=== PATIENT | female | born 1990 | race Caucasian/White ===

== ENCOUNTER 2017-01-14 04:20 | Inpatient (IN) | payer OTHER ==
[2017-01-14] MEDS: SODIUM CHLORIDE 1,000 ML IV SCH ×2 (04:50→08:03)
[2017-01-14 06:09] LABS: BASOPHIL 0.2 % (0-2.0); EOSINOPHIL 0.2 % (0-4.5); MCH 21.1 pg (25.7-33.7); MCHC 30.5 g/dl (32.0-36.0); MEAN CELL VOLUME 69.5 fl (80-96); MEAN PLT VOLUME 8.6 fl (7.5-11.1); NEUTROPHILS 78.5 % (42.8-82.8); RDW 17.8 % (11.6-15.6); WHITE BLOOD COUNT 17.8 K/mm3 (4.0-10.0)
[2017-01-14] MEDS ORDERED: SODIUM CHLORIDE 100 ML IVPB SCH (06:30)
[2017-01-14 06:45] LABS: INR 0.95 (0.82-1.09); PROTHROMBIN TIME (PATIENT) 10.4 SEC (9.98-11.88)
[2017-01-14 06:47] LABS: ACTIVATED PTT 28.9 SECONDS (26.9-34.4)
[2017-01-14 06:51] LABS: ANION GAP 9 (8-16); CALCIUM 8.5 mg/dL (8.5-10.1); CO2 21 mmol/L (21-32); CREATININE 0.5 mg/dL (0.55-1.02); GLUCOSE,RANDOM 98 mg/dL (74-106)
[2017-01-14 07:26] LABS: HIV 1 & 2 AB NEGATIVE; HIV 1 AGp24 NEGATIVE
[2017-01-14] MEDS ORDERED: BUTORPHANOL TARTRATE 1 MG/ML VIAL IVPB ONE (08:04)
[2017-01-14] MEDS ORDERED: PROMETHAZINE HCL 25 MG/1 ML VIAL IVPUSH ONE (08:04)
[2017-01-14 08:15] LABS: PLATELET COMMENT2 NO CLOTTING DETECTED; PLATELET ESTIMATE ADEQUATE (NORMAL)
[2017-01-14 08:16] LABS: ANISOCYTOSIS 2+; HYPOCHROMIA 2+; MICROCYTOSIS 1+
--- NOTE | 2017-01-14 08:27 | HP ---
Past Medical History - Primary Care Physician PCP:: Kristel Kaur - Admission Chief Complaint: 26 yrs onset LP since 12.30 am 38.4/7 weeks by dates & sono History of Present Illness: pnc at [facility] .Wt gain 24 lbs . pt has numerous visits in L&D due to different reasons l1) palpitations, anxiety , (2)upper abd(epigastric )pain Cholelithiasis diagnosed, on 12/24, cholecystiitis suspected, treated with Iv Ancef & , demerol & vistril pt returned with same complains on 01/05/17 treated with IV ampicillin followed by po amoxcillin for 7 days (3)GDM diet controlled & Po Glyburide 2.5 mg bid (4) Asthma rx inhaler . (5) Anemia work UP : O Pos, , Rpr nr, Hbsag neg, Rubella immune, Quantiferon neg, Gbs neg, HIV neg, ., 1 hr GTT 180, 3 Hr Gtt 97, 190, 123, 106 NT screen not done. , Quad screen neg 01/04/17 bpp8/8, varinder 14.79. 01/12/17 sono report not on chart History Source: Patient, Medical Record, Caregiver - Past Medical History SAMPLE STEAMER: No: Migraine, Seizure Cardiovascular: Yes: Other (palpitations). No: HTN Pulmonary: Yes: Asthma (rx inhaler prn) Hepatobiliary: Yes: Cholelithiasis, Cholecystitis (rx iv ancef , iv ampicillin followed by po amoxcilin) Renal/: Yes: UTI ...: 1 ...Para: 0 ...Term: 0 ...: 0 ...Spon : 0 ...Induced : 0 ...Multiple Gestation: 0 ...LMP: 04/19/16 ... Weeks Gestation by Dates: 38.4 ...EDC by Dates: 01/24/17 ...EDC by Sono: 01/24/17 Heme/Onc: Yes: Anemia (zoila compliant in iron & pnv intake) Infectious Disease: No: AIDS, HIV, STD's Psych: Yes: Anxiety Endocrine: Yes: Other (GDM rx po glyburide 2.5 mg bid & diet controlled) - Past Surgical History Past Surgical History: Yes: None Hx Myomectomy: No Hx Transabdominal Cerclage: No - Smoking History Smoking history: Never smoked Have you smoked in the past 12 months: No - Alcohol/Substance Use Hx Alcohol Use: No History of Substance Use: reports: None Home Medications - Allergies Allergies/Adverse Reactions: Allergies Allergy/AdvReac Type Severity Reaction Status Date / Time No Known Allergies Allergy Verified 01/14/17 06:51 - Home Medications Home Medications: Ambulatory Orders Glyburide/Metformin HCl [Glyburide-Metformin 2.5-500 mg] 2.5 mg PO BID 12/30/16 Albuterol Sulfate Inhaler - [Ventolin Hfa Inhaler -] 1 puff IH Q4H PRN 01/13/17 Vitamins (Sjr) - 1 tab PO DAILY 01/13/17 Physical Exam - Maternity Vital Signs: Vital Signs Temperature 97.7 F 01/14/17 04:55 Pulse Rate 78 01/14/17 04:55 Respiratory Rate 20 01/14/17 04:55 Blood Pressure 128/79 01/14/17 04:55 O2 Sat by Pulse Oximetry (%) Constitutional: Yes: Well Nourished, Severe Distress Eyes: Yes: WNL HENT: Yes: WNL, Normocephalic Neck: Yes: WNL Cardiovascular: Yes: WNL, Regular Rate and Rhythm Lungs: Clear to auscultation Breast(s): Yes: WNL - Abdominal Exam/OB Fundal Height: 38 Number of Fetuses: Single Presentation: Vertex Contractions: Yes Regularity: Irregular (4-7 min) Monitor Mode: External Heart Rate (range): 145 Heart Rate Location: [facility] Category: I Accelerations: Uniform - Vaginal Exam/OB Vaginal Bleediing: Bloody Show Speculum Exam: Yes Dilatation (cm): 3-4 Effacement (%): 90 Amniotic Membrane Status: Intact Nitrazine Test: Negative Presentation: Vertex/Position Station: -3 - Physical Exam Musculoskeletal: Yes: WNL Extremities: Yes: WNL. No: Calf Tenderness Edema: Yes Edema: LLE: 1+, RLE: 1+ Deep Tendon Reflex Grade: Normal +2 ...Motor Strength: WNL Psychiatric: Yes: WNL, Alert, Oriented - Labs Lab Results: CBC, BMP 01/14/17 05:45 01/14/17 05:45 Laboratory Tests 01/14/17 01/14/17 05:45 05:45 INR 0.95 PTT (Actin FS) 28.9 HIV 1&2 Antibody Screen Negative HIV P24 Antigen Negative Laboratory Tests 01/14/17 08:53 WBC 17.0 H Hgb 8.1 L Hct 26.2 L MCV 69.5 L Plt Count No Result Required. Platelet Comment Mod plt clumping Problem List - Problems (1) 38 to 41 weeks gestation of Code(s): [id number] - (2) Labor established Code(s): [id number] - (3) Anemia Code(s): D64.9 - ANEMIA, UNSPECIFIED Qualifiers: Anemia type: iron deficiency (4) Cholelithiasis Code(s): K80.20 - CALCULUS OF GALLBLADDER W/O CHOLECYSTITIS W/O OBSTRUCTION (5) Cholelithiasis affecting in third trimester, antepartum Code(s): O26.613 - LIVER AND BILIARY TRACT DISORD IN , THIRD TRIMESTER K80.20 - CALCULUS OF GALLBLADDER W/O CHOLECYSTITIS W/O OBSTRUCTION (6) Gestational diabetes mellitus (GDM) controlled on oral hypoglycemic drug Code(s): O24.415 - GESTATNL DIABETES IN PREG, CTRL BY ORAL HYPOGLYCEMIC DRUGS (7) Gestational diabetes mellitus (GDM) in second trimester controlled on oral hypoglycemic drug Code(s): O24.415 - GESTATNL DIABETES IN PREG, CTRL BY ORAL HYPOGLYCEMIC DRUGS (8) Gestational diabetes mellitus (GDM) in third trimester controlled on oral hypoglycemic drug Code(s): O24.415 - GESTATNL DIABETES IN PREG, CTRL BY ORAL HYPOGLYCEMIC DRUGS Assessment/Plan 26 yrs , 38.4 weeks in early labor . , gbs neg , severe anemia GDM on diet , glyburide control Plan stadol + phenrgan for labor analgesia pitocin augmentation trial of labor
[2017-01-14] MEDS ORDERED: OXYTOCIN 15 UNITS/ LR 250 ML 250 ML IVPB SCH (08:45)
[2017-01-14 09:13] LABS: BASOPHIL 0.2 % (0-2.0); EOSINOPHIL 0.2 % (0-4.5); MCH 21.4 pg (25.7-33.7); MCHC 30.8 g/dl (32.0-36.0); MEAN CELL VOLUME 69.5 fl (80-96); MEAN PLT VOLUME 8.4 fl (7.5-11.1); NEUTROPHILS 80.9 % (42.8-82.8); RDW 17.5 % (11.6-15.6)
[2017-01-14 10:12] LABS: PLATELET ESTIMATE ADEQUATE (NORMAL)
[2017-01-14] MEDS: ELECTROLYTE-148 SOLN 1,000 ML IV SCH ×2 (10:30→14:46)
[2017-01-14] MEDS ORDERED: FENTANYL/BUPIVACAINE/NS/PF - PCEA - 50 ML DISP.SYRIN EP SCH (11:15)
--- NOTE | 2017-01-14 11:52 | PN ---
Progress Note, Labor Vaginal Exam #1 Labor Exam Date: 01/14/17 Labor Exam Time: 11:25 Heart Rate (range): 150 Dilatation: 5-6 Effacement (%): 90 Amniotic Membrane Status: Ruptured (AROM light meconium) Presentation: Vertex/Position Station: -1 (-1, caput) Remarks: fhr cat-2 , Late decel 3 one after another, down to 90 bpm , btb variablity normal /O2 given , LT lateral positon uc dysfuctional 2-4 min scalp electrode applied 11.00am epidural was given . Selected Entries 01/14/17 11:15 Pulse Rate 89 Blood Pressure 113/68 Vaginal Exam #2 Labor Exam Date: 01/14/17 Labor Exam Time: 13:30 Heart Rate (range): 150 Dilatation: 6 Effacement (%): 90 Amniotic Membrane Status: Ruptured Presentation: Vertex/Position Station: -1 Remarks: fhr cat-1 UC 2-4-5 min , dysfunctional Selected Entries 01/14/17 01/14/17 12:00 12:34 Temperature 98.4 F Pulse Rate 70 Blood Pressure 117/69 14/00 temp 99.7 c/o headache 14.30 bgm 85 Rx stat po tylenol 650 mg given Vaginal Exam #3 Labor Exam Date: 01/14/17 Labor Exam Time: 15:40 Heart Rate (range): 150 Dilatation: 7-8 Effacement (%): 90 Amniotic Membrane Status: Ruptured Presentation: Vertex/Position Station: 0 Remarks: FHR cat-1 uc q2-4 min still dysfunctional Selected Entries 01/14/17 15:15 Pulse Rate 80 Blood Pressure 115/65 16.20 hr Temp 100.4, pulse 84, BP 112/63 Rx IV Ampicillin 2gm stat Selected Entries 01/14/17 16:20 Temperature 100.4 F H Vaginal Exam #4 Labor Exam Date: 01/14/17 Labor Exam Time: 17:40 Heart Rate (range): 150 Dilatation: 8-9 Effacement (%): 90 Amniotic Membrane Status: Ruptured Presentation: Vertex/Position (post) Station: +1 Remarks: FHR cat-1 UC q2-4 min Selected Entries 07/07/17 07/07/17 07/07/17 14:00 16:45 17:00 Temperature 99.7 F H 99.6 F Pulse Rate 80 Blood Pressure 133/[address] trial of labor BGM 78 rx d5 rl 150 ml/hr x 500ml Vaginal Exam #5 Labor Exam Date: 01/14/17 Labor Exam Time: 19:40 Heart Rate (range): 150-160 Dilatation: 10 Effacement (%): 100 Amniotic Membrane Status: Ruptured Presentation: Vertex/Position Station: +2 Remarks: fhr cat-1 uc 2-4 min ppt encouraged to push 1945 Temp 101, lBP 149/82 Puse 97 19.50 rx IVPB Tylenol 1000 mg i 20 10 hr pt was pushing FHR 170-180 -200 bpm . lno effective descent is noted Plan stop trial of labor Imp ac chorioamnionitis Deliveery by primary c/section BGM 124 rx IV Plasmalyte
[2017-01-14] MEDS: ACETAMINOPHEN 325 MG TABLET (FP) PO ONE ×2 (14:40→18:06)
[2017-01-14] MEDS ORDERED: AMPICILLIN - 2 GM in SODIUM CHLORIDE 100 ML IVPB ONE (16:30)
[2017-01-14] MEDS ORDERED: DEXTROSE 5%-LACTATED RINGERS 1,000 ML IV SCH (18:15)
[2017-01-14] MEDS ORDERED: ACETAMINOPHEN 1000 MG/100 ML VIAL (NON FORMULARY) IVPB ONE (19:50)
[2017-01-14] MEDS: AMPICILLIN - 1 GM in SODIUM CHLORIDE 100 ML IVPB SCH (20:00)
[2017-01-14] MEDS ORDERED: CITRIC ACID/SODIUM CITRATE 30 ML UNIT-DOSE CUP PO ONE (20:16)
[2017-01-14] MEDS ORDERED: AMPICILLIN - 1 GM in SODIUM CHLORIDE 100 ML IVPB SCH (20:31)
[2017-01-14] MEDS ORDERED: morphine SULFATE/Preservative Free 0.5 MG/ML (1cc Syringe) EP ONE (21:26)
[2017-01-14] MEDS ORDERED: ONDANSETRON 4 MG/2 ML VIAL IVPB PRN (21:26)
[2017-01-14] MEDS: OXYTOCIN 20 UNITS in 0.9% NS 1,000 ML IV SCH (21:50)
[2017-01-14 22:23] LABS: ARTERIAL BLD GAS O2 SATURATION 38.3 % (90-98.9); ARTERIAL BLOOD GAS BASE EXCESS -3.9 meq/l (-2-2); ARTERIAL BLOOD GAS HCO3 22.3 meq/L (22-26); ARTERIAL BLOOD GAS pH 7.31 (7.35-7.45)
[2017-01-14 22:25] LABS: ARTERIAL BLOOD GAS PO2 21.2 mmHg (80-100)
[2017-01-14 22:27] LABS: ARTERIAL BLD GAS O2 SATURATION 23.5 % (90-98.9); ARTERIAL BLOOD GAS BASE EXCESS -3.9 meq/l (-2-2); ARTERIAL BLOOD GAS HCO3 23.7 meq/L (22-26)
[2017-01-14 22:28] LABS: ARTERIAL BLOOD GAS pH 7.26 (7.35-7.45)
[2017-01-14 22:29] LABS: ARTERIAL BLOOD GAS PO2 16.9 mmHg (80-100)
[2017-01-14] MEDS ORDERED: IBUPROFEN 800 MG/8 ML IJ IVPB PRN (22:33)
[2017-01-14] MEDS ORDERED: METHYLERGONOVINE MALEATE 0.2 MG/1 ML AMP IM PRN (22:33)
[2017-01-14] MEDS ORDERED: SENNOSIDES/DOCUSATE COMBO (SENNA PLUS) TABLET (UD) PO PRN (22:33)
[2017-01-14] MEDS: GENTAMICIN 80 MG PREMIXED IVPB 100 ML IVPB SCH (23:00)
--- NOTE | 2017-01-14 23:00 | OP ---
Operative Note - Note: Operative Date: 01/14/17 Pre-Operative Diagnosis: 38.4 weeks, , failure of descent 2nd stage, Ac chorioamnionitis Operation: Primary LFTC/Section Findings: 9.49 pm , Baby Girl, 8/9 , LOP position, Wt 8'10", Meconium stained fluid baby transferred to NICU Bioh tubes & ovaries were normal dr Stephen gluer present in the room Surgeon: Kristel Kaur Professor Of Business: Lisa Salas Anesthesiologist/CROSS ENTERPRISE INTEGRATOR: Leo Wilson Anesthesia: Epidural Specimens Removed: cord segment for blood gas. cord blood. placenta Estimated Blood Loss (mls): 600 Drains, Volume Out (mls): 300 (cisse urine nathalie color ) Fluid Volume Replaced (mls): 2,000 (40 units pitocin in ! litre, Im Methergine0.2 mg )
--- NOTE | 2017-01-14 23:20 | PN ---
Delivery - Delivery Section: Primary, Low Flap Transverse (38.4 weeks, Ac Chorioamnionitis , Failure of descent in 2nd stage of labor) Type of Anesthesia: Epidural EBL (cc): 600 (300 ml nathalie color urine ) Delivery, Single - Stages of Labor Date 1st Stage Initiatied: 01/14/17 Time 1st Stage Initiated: 00:30 Date 2nd Stage Initiated: 01/14/17 Time 2nd Stage Initiated: 19:40 Date of Delivery: 01/14/17 Time of Delivery: 21:49 Date Placenta Delivered: 01/14/17 Time Placenta Delivered: 21:50 Placenta: Yes: Manual Removal, Uterine Exploration - Condition of Infant Chief Credit Officer/Game Advisor Present: Yes Name: Mele Stephen Infant Gender: Female Position: Left, OP Total Hours ROM (Hrs/Mins): [id number], meco - 1 Minute Total Score: 8 5 Minutes Total Score: 9 - [place] Feeding Plan Initial Plan: Elected not to breastfeed exclusively throughout hospitalization Remarks - Remarks Remarks: 26 yrs 38.4 weeks in labor , GBS neg PNCat 2, [facility] . stadol + phenergan followed by epidural for labor analgesia used Pitocin augmentation given Intrapartum Tmax 101, rx IV Tylenol 1000 mg , IV ampicillin 2 gm followed by 1 gm preop was given tachycardia noted 180 , hence trial of labor abandoned , Intraop prophylactically 40 iu pitocin & Methergine im was given infant transferred to NICU . Iv gentamicin post op in RR is given
[2017-01-15] MEDS: ACETAMINOPHEN 325 MG TABLET (FP) PO PRN ×4 (02:24→21:44)
[2017-01-15] MEDS: GENTAMICIN 80 MG PREMIXED IVPB 100 ML IVPB SCH ×3 (02:28→17:06)
[2017-01-15] MEDS: AMPICILLIN - 1 GM in SODIUM CHLORIDE 100 ML IVPB SCH ×6 (03:49→23:48)
[2017-01-15] MEDS: SODIUM CHLORIDE 1,000 ML IV SCH ×3 (07:36→21:45)
--- NOTE | 2017-01-15 07:46 | PN ---
Post Progress Note - Subjective Subjective: pt c/o itching no c/o pain she had fever last night Post Day: 1 Type of Delivery: Primary C/S Vital Signs: Vital Signs Temperature 100 F H 01/15/17 06:00 Pulse Rate 101 H 01/15/17 06:00 Respiratory Rate 18 01/15/17 06:00 Blood Pressure 131/84 01/15/17 06:00 O2 Sat by Pulse Oximetry (%) 100 01/14/17 23:25 Selected Entries 01/15/17 01/15/17 01/15/17 01:00 02:00 06:00 Temperature 101.2 F H 101.4 F H 100 F H Pulse Rate 104 H 101 H Blood Pressure 139/83 131/84 Breast Exam: Yes: Soft, Other. No: Engorged Uterus: Yes: Fundus Firm, Fundus below umbilicus, Non-tender Incision: Yes: Dressing dry and intact. No: Oozing Abdomen/GI: Yes: Abdomen soft, Tender, Tolerating PO (clear fluid , started now ). No: Abdominal Distention (BS active ), Passing flatus Lochia: Yes: Rubra Lochia, amount: Moderate Extremities: Yes: Calves non-tender (scd in situ ) Perineum: Yes: Intact Activity: Other (pt not oob yet ) - Labs Labs: CBC WBC 17.0 K/mm3 (4.0-10.0) H 01/14/17 08:53 RBC 3.77 M/mm3 (3.60-5.2) 01/14/17 08:53 Hgb 8.1 GM/dL (10.7-15.3) L 01/14/17 08:53 Hct 26.2 % (32.4-45.2) L 01/14/17 08:53 MCV 69.5 fl (80-96) L 01/14/17 08:53 MCHC 30.8 g/dl (32.0-36.0) L 01/14/17 08:53 RDW 17.5 % (11.6-15.6) H 01/14/17 08:53 Plt Count No Result Required. 01/14/17 08:53 MPV 8.4 fl (7.5-11.1) 01/14/17 08:53 Neutrophils % 80.9 % (42.8-82.8) 01/14/17 08:53 Lymphocytes % 11.7 % (8-40) D 01/14/17 08:53 Monocytes % 7.0 % (3.8-10.2) 01/14/17 08:53 Eosinophils % 0.2 % (0-4.5) 01/14/17 08:53 Basophils % 0.2 % (0-2.0) 01/14/17 08:53 Platelet Estimate Adequate (NORMAL) 01/14/17 08:53 Platelet Comment Mod plt clumping 01/14/17 08:53 Platelet Comment No clotting detected 01/14/17 05:45 Hypochromic-Microcytic 2+ 01/14/17 05:45 Anisocytosis 2+ 01/14/17 05:45 Microcytosis 1+ 01/14/17 05:45 Macrocytosis Few 01/14/17 05:45 Laboratory Tests 01/15/17 07:25 WBC 26.9 H D Hgb 7.4 L Hct 24.5 L Plt Count No Result Required. Lymphocytes % 7.0 L D Monocytes % 3.0 L Eosinophils % 0.0 D Platelet Comment Marked plt clumping Hypochromic-Microcytic 2+ Anisocytosis 1+ Other Findings, Remarks: RS/Cta i/o outpot 1900 ml cisse draining Problem List - Problems (1) 38 to 41 weeks gestation of Code(s): [id number] - (2) Labor established Code(s): YJJ2323 - (3) Anemia Code(s): D64.9 - ANEMIA, UNSPECIFIED Qualifiers: Anemia type: iron deficiency (4) Cholelithiasis Code(s): K80.20 - CALCULUS OF GALLBLADDER W/O CHOLECYSTITIS W/O OBSTRUCTION (5) Cholelithiasis affecting in third trimester, antepartum Code(s): O26.613 - LIVER AND BILIARY TRACT DISORD IN , THIRD TRIMESTER K80.20 - CALCULUS OF GALLBLADDER W/O CHOLECYSTITIS W/O OBSTRUCTION (6) Gestational diabetes mellitus (GDM) controlled on oral hypoglycemic drug Code(s): O24.415 - GESTATNL DIABETES IN PREG, CTRL BY ORAL HYPOGLYCEMIC DRUGS (7) Gestational diabetes mellitus (GDM) in second trimester controlled on oral hypoglycemic drug Code(s): O24.415 - GESTATNL DIABETES IN PREG, CTRL BY ORAL HYPOGLYCEMIC DRUGS (8) Gestational diabetes mellitus (GDM) in third trimester controlled on oral hypoglycemic drug Code(s): O24.415 - GESTATNL DIABETES IN PREG, CTRL BY ORAL HYPOGLYCEMIC DRUGS (9) Acute chorioamnionitis Code(s): O41.1290 - CHORIOAMNIONITIS, UNSP TRIMESTER, NOT APPLICABLE OR UNSP (10) Failure of descent in labor, delivered, current hospitalization Code(s): O62.2 - OTHER UTERINE INERTIA (11) Status post primary low transverse section Code(s): Z98.891 - HISTORY OF UTERINE SCAR FROM PREVIOUS SURGERY Assessment/Plan s/p ac chorioamnionitis anemia primary c/s Plan cbc today pending ct iV Ampicillin & Gentamicin . If patient symptomatic for dizziness, will consider transfusion
[2017-01-15 08:36] LABS: MCH 21.1 pg (25.7-33.7); MCHC 30.2 g/dl (32.0-36.0); MEAN PLT VOLUME 9.2 fl (7.5-11.1); RDW 17.6 % (11.6-15.6); WHITE BLOOD COUNT 26.9 K/mm3 (4.0-10.0)
[2017-01-15] MEDS: FERROUS SO4 325 MG TABLET (FP) PO SCH ×2 (09:31→21:45)
[2017-01-15] MEDS: PRENATAL VITAMINS W/ FOLIC ACID TABLET (FP) PO SCH (09:31)
[2017-01-15 11:14] LABS: ANISOCYTOSIS 1+; HYPOCHROMIA 2+; PLATELET ESTIMATE ADEQUATE (NORMAL)
[2017-01-15] MEDS: SIMETHICONE 80 MG TAB.CHEW (FP) PO PRN ×2 (17:07→21:42)
[2017-01-15] MEDS: oxyCODONE HCL 5 MG TABLET PO PRN ×2 (17:08→21:43)
[2017-01-15] MEDS ORDERED: BISACODYL 10 MG SUPP.RECT RC PRN (22:34)
--- NOTE | 2017-01-16 00:07 | PN ---
Progress Note, Physician Chief Complaint: Pt. ambulating and voiding. Pain controlled, no MARROQUIN. No anesthesia complaints. - Current Medication List Current Medications: Active Medications Acetaminophen (Tylenol -) 650 mg PO Q4H PRN PRN Reason: FEVER OR PAIN Last Admin: 01/15/17 21:44 Dose: 650 mg Bisacodyl (Dulcolax Suppository -) 10 mg RC PRN PRN PRN Reason: CONSTIPATION Diphenhydramine HCl (Benadryl Injection -) 25 mg IVPUSH Q4H PRN PRN Reason: Pruritis Last Admin: 01/15/17 14:58 Dose: 25 mg Diphtheria/Tetanus/Acell Pertussis (Boostrix -) 0.5 ml IM .ONCE ONE Stop: 01/17/17 10:01 Ferrous Sulfate (Feosol -) 325 mg PO BID [facility] Last Admin: 01/15/17 21:45 Dose: 325 mg Sodium Chloride (Normal Saline -) 1,000 mls @ 125 mls/hr IV ASDIR [facility] Last Admin: 01/15/17 21:45 Dose: 125 mls/hr Gentamicin Sulfate/Sodium Chloride (Garamycin 80 Mg Premixed Ivpb -) 100 mls @ 100 mls/hr IVPB Q8H-IV MALIK Last Admin: 01/15/17 17:06 Dose: 100 mls/hr Ampicillin Sodium 1 gm/ Sodium (Chloride) 100 mls @ 200 mls/hr IVPB Q4H [facility] Stop: 01/17/17 22:59 Last Admin: 01/15/17 23:48 Dose: 200 mls/hr Ibuprofen (Motrin -) 600 mg PO Q4H PRN PRN Reason: PAIN Methylergonovine Maleate (Methergine Injection -) 0.2 mg IM Q4H PRN PRN Reason: Excessive Bleeding (L&D) Oxycodone HCl (Roxicodone -) 5 mg PO Q4H PRN PRN Reason: PAIN LEVEL 1-5 Last Admin: 01/15/17 17:08 Dose: 5 mg Oxycodone HCl (Roxicodone -) 10 mg PO Q4H PRN PRN Reason: PAIN LEVEL 6-10 Last Admin: 01/15/17 21:43 Dose: 10 mg Multivit/Folic Acid/Iron ( Vitamins (Sjr) -) 1 tab PO DAILY [facility] Last Admin: 01/15/17 09:31 Dose: Not Given Senna/Docusate Sodium (Pericolace -) 2 tablet PO HS PRN PRN Reason: CONSTIPATION Simethicone (Mylicon -) 80 mg PO Q4H PRN PRN Reason: GAS Last Admin: 01/15/17 21:42 Dose: 80 mg - Objective Vital Signs: Vital Signs Temperature 98.0 F 01/15/17 22:00 Pulse Rate 84 01/15/17 22:00 Respiratory Rate 18 01/15/17 22:00 Blood Pressure 123/64 01/15/17 22:00 O2 Sat by Pulse Oximetry (%) 100 01/14/17 23:25 Constitutional: Yes: Well Nourished, No Distress, Calm Musculoskeletal: Yes: WNL Neurological: Yes: WNL, Alert, Oriented ...Motor Strength: WNL Labs: CBC, BMP 01/15/17 07:25 01/14/17 05:45 INR, PTT INR 0.95 (0.82-1.09) 01/14/17 05:45 Assessment/Plan POD#1 s/p under spinal with duramorph. Doing well. D/C from anesthesia care.
[2017-01-16] MEDS: GENTAMICIN 80 MG PREMIXED IVPB 100 ML IVPB SCH ×3 (02:04→17:46)
[2017-01-16] MEDS: AMPICILLIN - 1 GM in SODIUM CHLORIDE 100 ML IVPB SCH ×6 (02:50→22:43)
[2017-01-16] MEDS: IBUPROFEN 600 MG TABLET (FP) PO PRN ×3 (02:56→22:45)
[2017-01-16] MEDS: SIMETHICONE 80 MG TAB.CHEW (FP) PO PRN ×4 (03:02→22:46)
[2017-01-16] MEDS: ACETAMINOPHEN 325 MG TABLET (FP) PO PRN ×4 (03:05→22:46)
[2017-01-16] MEDS: SODIUM CHLORIDE 1,000 ML IV SCH (06:42)
[2017-01-16 07:17] LABS: BASOPHIL 0.2 % (0-2.0); EOSINOPHIL 0.5 % (0-4.5); MCH 21.3 pg (25.7-33.7); MCHC 30.6 g/dl (32.0-36.0); MEAN CELL VOLUME 69.4 fl (80-96); MEAN PLT VOLUME 8.9 fl (7.5-11.1); NEUTROPHILS 80.6 % (42.8-82.8); RDW 17.8 % (11.6-15.6)
--- NOTE | 2017-01-16 08:45 | PN ---
Post Progress Note - Subjective Subjective: c/o headache c/o dizziness c/o pain at incision site scale 6/10 . c/o pain at incision site when she urinates Post Day: 2 Type of Delivery: Primary C/S Vital Signs: Vital Signs Temperature 98.3 F 01/16/17 05:45 Pulse Rate 90 01/16/17 05:45 Respiratory Rate 20 01/16/17 05:45 Blood Pressure 117/61 01/16/17 05:45 O2 Sat by Pulse Oximetry (%) 96 01/15/17 23:30 Selected Entries 01/15/17 01/15/17 01/15/17 14:26 18:08 22:00 Temperature 99.7 F H 100.7 F H 98.0 F Blood Pressure 124/56 128/77 01/16/17 01/16/17 02:17 05:45 Temperature 98.5 F 98.3 F Blood Pressure Selected Entries 01/15/17 01/15/17 21:00 23:30 O2 Sat by Pulse 90 L 96 Oximetry (%) Breast Exam: Yes: Soft. No: Engorged, Other (wants to pump the milk ) Uterus: Yes: Fundus Firm, Fundus below umbilicus Incision: Yes: Dressing dry and intact (to be removed ). No: Oozing Abdomen/GI: Yes: Abdomen soft, Tender (in incision area . no cva tenderness), Passing flatus, Tolerating PO (diet ). No: Abdominal Distention Lochia: Yes: Rubra Lochia, amount: Moderate Extremities: Yes: Calves non-tender Perineum: Yes: Intact Activity: Ambulating - Labs Labs: CBC WBC 20.0 K/mm3 (4.0-10.0) H 01/16/17 06:15 RBC 3.18 M/mm3 (3.60-5.2) L 01/16/17 06:15 Hgb 6.8 GM/dL (10.7-15.3) L* 01/16/17 06:15 Hct 22.1 % (32.4-45.2) L 01/16/17 06:15 MCV 69.4 fl (80-96) L 01/16/17 06:15 MCH 21.3 pg (25.7-33.7) L 01/16/17 06:15 MCHC 30.6 g/dl (32.0-36.0) L 01/16/17 06:15 RDW 17.8 % (11.6-15.6) H 01/16/17 06:15 Plt Count No Result Required. 01/15/17 07:25 MPV 8.9 fl (7.5-11.1) 01/16/17 06:15 Neutrophils % 80.6 % (42.8-82.8) 01/16/17 06:15 Lymphocytes % 11.8 % (8-40) D 01/16/17 06:15 Monocytes % 6.9 % (3.8-10.2) D 01/16/17 06:15 Eosinophils % 0.5 % (0-4.5) D 01/16/17 06:15 Basophils % 0.2 % (0-2.0) D 01/16/17 06:15 Band Neutrophils 8.0 % (0-10) 01/15/17 07:25 Nucleated RBCs 2 % (0-0) H 01/15/17 07:25 Differential Comment Manual diff done 01/15/17 07:25 Platelet Estimate Adequate (NORMAL) 01/15/17 07:25 Platelet Comment Marked plt clumping 01/15/17 07:25 Platelet Comment No clotting detected 01/14/17 05:45 Hypochromic-Microcytic 2+ 01/15/17 07:25 Anisocytosis 1+ 01/15/17 07:25 Microcytosis 1+ 01/14/17 05:45 Macrocytosis Few 01/14/17 05:45 Rouleaux 1+ 01/15/17 07:25 Other Findings, Remarks: CTA Problem List - Problems (1) 38 to 41 weeks gestation of Code(s): [id number] - (2) Labor established Code(s): KOQ4299 - (3) Anemia Code(s): D64.9 - ANEMIA, UNSPECIFIED Qualifiers: Anemia type: iron deficiency (4) Cholelithiasis Code(s): K80.20 - CALCULUS OF GALLBLADDER W/O CHOLECYSTITIS W/O OBSTRUCTION (5) Cholelithiasis affecting in third trimester, antepartum Code(s): O26.613 - LIVER AND BILIARY TRACT DISORD IN , THIRD TRIMESTER K80.20 - CALCULUS OF GALLBLADDER W/O CHOLECYSTITIS W/O OBSTRUCTION (6) Gestational diabetes mellitus (GDM) controlled on oral hypoglycemic drug Code(s): O24.415 - GESTATNL DIABETES IN PREG, CTRL BY ORAL HYPOGLYCEMIC DRUGS (7) Gestational diabetes mellitus (GDM) in second trimester controlled on oral hypoglycemic drug Code(s): O24.415 - GESTATNL DIABETES IN PREG, CTRL BY ORAL HYPOGLYCEMIC DRUGS (8) Gestational diabetes mellitus (GDM) in third trimester controlled on oral hypoglycemic drug Code(s): O24.415 - GESTATNL DIABETES IN PREG, CTRL BY ORAL HYPOGLYCEMIC DRUGS (9) Acute chorioamnionitis Code(s): O41.1290 - CHORIOAMNIONITIS, UNSP TRIMESTER, NOT APPLICABLE OR UNSP (10) Failure of descent in labor, delivered, current hospitalization Code(s): O62.2 - OTHER UTERINE INERTIA (11) Status post primary low transverse section Code(s): Z98.891 - HISTORY OF UTERINE SCAR FROM PREVIOUS SURGERY Assessment/Plan s/p c/s day #2 on antibiotics IVAmpicillin & IVGentamicin , afebrile for last 12 hrs , wbc count 20, 000 still , Hence ct IV antibiotics severe anema , symptomatic headache & dizziness ,h/h 6.8/22.3 Hence Transfuse 2 units pack cells today . Encourage deep breathing , ambulation with assistance
[2017-01-16] MEDS: FERROUS SO4 325 MG TABLET (FP) PO SCH ×2 (10:05→21:48)
[2017-01-16] MEDS: PRENATAL VITAMINS W/ FOLIC ACID TABLET (FP) PO SCH (10:05)
--- NOTE | 2017-01-16 11:12 | OP ---
DATE OF OPERATION: 01/14/2017 PREOPERATIVE DIAGNOSES: A 38.4 weeks' , failure of descent, acute chorioamnionitis. OPERATION DONE: Primary low flap transverse section. SURGEON: Mark Kaur MD SPECIAL EDUCATION EDUCATIONAL ASSISTANT SURGEON: Lisa Salas MD ANESTHESIOLOGIST: Candy Wilson MD ANESTHESIA: Epidural. FINDINGS: This is a 26-year-old 1, para 0 who was admitted in early labor with 3-cm dilatation. After receiving Stadol and Phenergan, contractions had slowed down, so Pitocin augmentation was given. After AROM, light meconium was noted. The heart tracing was category 1, she was fully dilated and pushing. There was no more descent noted and she started having low-grade fever. Maximum fever went to 101. Prior to that, both p.o. and IV Tylenol were given and ampicillin was started. When she was 7 to 8 cm dilated, IV antibiotics were started. Since the heart rate went from 160 to 180, sometimes to 200, it was decided to abandon the trial of labor and deliver the patient via . Therefore, Pitocin was discontinued. The patient had received epidural analgesia. Incidentally, the patient has anemia. Hemoglobin is 8.7. PROCEDURE: Patient was taken to the operating room where epidural analgesia was converted to epidural anesthesia. The scalp electrode was removed from the scalp. Abdominal drape with Durand was already in situ. She was transferred to the operating room table. Abdomen was painted with ChloraPrep and draped in usual manner. Pfannenstiel incision was made. The skin, subcutaneous tissue and anterior rectus sheath were incised transversely. Bleeding points were clamped and cauterized. The rectus muscle was from the rectus sheath. The parietal peritoneum was opened vertically. The lower flap of the peritoneum was incised transversely and the amniotic fluid was stained with meconium. The baby was delivered from the LOP position. Immediate nasal and oral suction was done. The cord was clamped and the baby was handed to the manager ecommerce, Dr. Stephen. Baby's Apgars were 8 and 9. Baby girl, weight is 8 pounds 10 ounces. Patient had a fever and chorioamnionitis is suspected. Baby was transferred to the NICU. The placenta was then completely removed with the membranes , Uterine atony noted . The uterus was soft. The anesthesiologist was requested to add 40 units of Pitocin in 1000 mL of the fluid and IM Methergine was given as prophylaxis. The uterine cavity was cleaned. Uterine incision was closed in two layers. The first layer was a continuous locking with Biosyn 0 suture. The second layer was a continuous intermittent locking with Biosyn 0 suture. Then, the peritoneum was also closed with Biosyn 0 suture. Both tubes and ovaries were normal. The sponge, instrument and needle count was correct. Irrigation was done. Then, closure of the abdomen was done. The parietal peritoneum was closed with a Vicryl 0 suture. Muscles were approximated together with Vicryl 0 interrupted sutures and underneath the rectus sheath flaps, hemostasis was checked. Then, the anterior rectus sheath was closed with a Vicryl 0 continuous suture. Hemostasis was checked in subcutaneous tissue. Interrupted sutures were taken in subcutaneous tissue. The skin was approximated with martin. A pressure dressing was given. The patient tolerated procedure well. Blood clots were removed from the vagina. The estimated blood loss was 600 mL. Urine output intraoperatively was 300 mL. She received IV ampicillin prior to section. She had received 2 doses, 2 g at 4 p.m. and 1 g at 8 p.m. She will be receiving IV gentamicin postoperatively in the recovery room. A uterine culture was also collected and sent to the lab. MARK KAUR M.D. [id number] MTDD
[2017-01-16 11:14] LABS: PLATELET ESTIMATE ADEQUATE (NORMAL)
[2017-01-16] MEDS: oxyCODONE HCL 5 MG TABLET PO PRN (18:45)
[2017-01-17] MEDS: GENTAMICIN 80 MG PREMIXED IVPB 100 ML IVPB SCH ×3 (01:40→18:23)
[2017-01-17] MEDS: AMPICILLIN - 1 GM in SODIUM CHLORIDE 100 ML IVPB SCH ×4 (03:18→17:23)
[2017-01-17] MEDS: ACETAMINOPHEN 325 MG TABLET (FP) PO PRN ×3 (03:38→16:00)
[2017-01-17] MEDS: oxyCODONE HCL 5 MG TABLET PO PRN ×3 (06:21→15:59)
[2017-01-17] MEDS ORDERED: ONDANSETRON 4 MG/2 ML VIAL IVPB PRN ×2 (06:30→22:33)
[2017-01-17] MEDS ORDERED: SODIUM CHLORIDE 1,000 ML IV SCH ×4 (06:45→18:00)
[2017-01-17 07:18] LABS: BASOPHIL 0.3 % (0-2.0); EOSINOPHIL 1.5 % (0-4.5); MCHC 31.3 g/dl (32.0-36.0); MEAN CELL VOLUME 73.5 fl (80-96); MEAN PLT VOLUME 8.9 fl (7.5-11.1); NEUTROPHILS 74.8 % (42.8-82.8); RDW 20.1 % (11.6-15.6)
[2017-01-17] MEDS: RANITIDINE HCL 150 MG TABLET (FP) PO SCH (09:15)
[2017-01-17] MEDS: PRENATAL VITAMINS W/ FOLIC ACID TABLET (FP) PO SCH (09:15)
--- NOTE | 2017-01-17 09:28 | PN ---
Post Progress Note - Subjective Subjective: pt c/o nausea, pain in upper abd & ruq last night presently no c/o upper abd or QUQ pain no vomiting, c/o hunger incisional pain scale 5-6/10 voiding without difficulty Post Day: 3 Type of Delivery: Primary C/S Vital Signs: Vital Signs Temperature 98 F 01/17/17 05:00 Pulse Rate 70 01/17/17 06:37 Respiratory Rate 18 01/17/17 06:37 Blood Pressure 136/81 01/17/17 06:37 O2 Sat by Pulse Oximetry (%) 93 L 01/16/17 14:00 Selected Entries 01/16/17 01/16/17 01/17/17 14:45 18:10 05:00 Temperature 100 F H Blood Pressure 136/85 145/89 Blood Pressure 108 Mean Breast Exam: Yes: Soft, Other (not BF ). No: Engorged Uterus: Yes: Fundus Firm, Fundus below umbilicus Incision: Yes: Kasie intact. No: Redness, Oozing Abdomen/GI: Yes: Abdomen soft, Passing flatus (bm not done ), Tolerating PO ( diet ). No: Abdominal Distention, Tender Lochia: Yes: Rubra Lochia, amount: Moderate Extremities: Yes: Calves non-tender Perineum: Yes: Intact Activity: Ambulating - Labs Labs: CBC WBC 15.0 K/mm3 (4.0-10.0) H 01/17/17 06:40 RBC 3.70 M/mm3 (3.60-5.2) 01/17/17 06:40 Hgb 8.5 GM/dL (10.7-15.3) L D 01/17/17 06:40 Hct 27.2 % (32.4-45.2) L D 01/17/17 06:40 MCV 73.5 fl (80-96) L 01/17/17 06:40 MCH 23.0 pg (25.7-33.7) L 01/17/17 06:40 MCHC 31.3 g/dl (32.0-36.0) L 01/17/17 06:40 RDW 20.1 % (11.6-15.6) H D 01/17/17 06:40 Plt Count No Result Required. 01/16/17 06:15 MPV 8.9 fl (7.5-11.1) 01/17/17 06:40 Neutrophils % 74.8 % (42.8-82.8) 01/17/17 06:40 Lymphocytes % 15.2 % (8-40) D 01/17/17 06:40 Monocytes % 8.2 % (3.8-10.2) 01/17/17 06:40 Eosinophils % 1.5 % (0-4.5) D 01/17/17 06:40 Basophils % 0.3 % (0-2.0) 01/17/17 06:40 Band Neutrophils 8.0 % (0-10) 01/15/17 07:25 Nucleated RBCs 2 % (0-0) H 01/15/17 07:25 Differential Comment Manual diff done 01/15/17 07:25 Platelet Estimate Adequate (NORMAL) 01/16/17 06:15 Platelet Comment Unable to enumerate 01/16/17 06:15 Platelet Comment No clotting detected 01/14/17 05:45 Hypochromic-Microcytic 2+ 01/15/17 07:25 Anisocytosis 1+ 01/15/17 07:25 Microcytosis 1+ 01/14/17 05:45 Macrocytosis Few 01/14/17 05:45 Rouleaux 1+ 01/15/17 07:25 Laboratory Tests 01/16/17 01/16/17 01/16/17 06:13 10:35 14:43 POC Glucometer 81 102 136 01/16/17 01/17/17 20:27 05:46 POC Glucometer 135 77 Problem List - Problems (1) 38 to 41 weeks gestation of Code(s): ONT4557 - (2) Labor established Code(s): IMP4007 - (3) Anemia Code(s): D64.9 - ANEMIA, UNSPECIFIED Qualifiers: Anemia type: iron deficiency (4) Cholelithiasis Code(s): K80.20 - CALCULUS OF GALLBLADDER W/O CHOLECYSTITIS W/O OBSTRUCTION (5) Cholelithiasis affecting in third trimester, antepartum Code(s): O26.613 - LIVER AND BILIARY TRACT DISORD IN , THIRD TRIMESTER K80.20 - CALCULUS OF GALLBLADDER W/O CHOLECYSTITIS W/O OBSTRUCTION (6) Gestational diabetes mellitus (GDM) controlled on oral hypoglycemic drug Code(s): O24.415 - GESTATNL DIABETES IN PREG, CTRL BY ORAL HYPOGLYCEMIC DRUGS (7) Gestational diabetes mellitus (GDM) in second trimester controlled on oral hypoglycemic drug Code(s): O24.415 - GESTATNL DIABETES IN PREG, CTRL BY ORAL HYPOGLYCEMIC DRUGS (8) Gestational diabetes mellitus (GDM) in third trimester controlled on oral hypoglycemic drug Code(s): O24.415 - GESTATNL DIABETES IN PREG, CTRL BY ORAL HYPOGLYCEMIC DRUGS (9) Acute chorioamnionitis Code(s): O41.1290 - CHORIOAMNIONITIS, UNSP TRIMESTER, NOT APPLICABLE OR UNSP (10) Failure of descent in labor, delivered, current hospitalization Code(s): O62.2 - OTHER UTERINE INERTIA (11) Status post primary low transverse section Code(s): Z98.891 - HISTORY OF UTERINE SCAR FROM PREVIOUS SURGERY Assessment/Plan ass anemia improved after 2 pack cell transfusions, pt not symptomatic, still anemic wbc count down to 15,000 ct IV ampicillin & gentamicin po zantac If afebrile today for 24 hrs , will d/c antibiotics
[2017-01-17 09:29] LABS: PLATELET ESTIMATE ADEQUATE (NORMAL)
[2017-01-17 09:30] LABS: PLATELET COUNT 117 K/MM3 (134-434)
[2017-01-17] MEDS ORDERED: DIPHTH,PERTUSS(ACELL),TET 0.5 ML DISP.SYRIN IM ONE (10:00)
[2017-01-17] MEDS: FERROUS SO4 325 MG TABLET (FP) PO SCH (10:56)
[2017-01-17] MEDS: SIMETHICONE 80 MG TAB.CHEW (FP) PO PRN ×2 (11:47→16:01)
[2017-01-17] MEDS ORDERED: ALBUTEROL SO4 0.083% IH SOL 2.5 MG/3 ML VIAL.NEB. NEB ONE ×2 (17:20→17:28)
[2017-01-17] MEDS ORDERED: morphine CARPU-JECT 4 MG/1 ML DISP.SYRIN IVPUSH ONE (17:23)
[2017-01-17] MEDS ORDERED: ALBUTEROL SO4 0.083% IH SOL 2.5 MG/3 ML VIAL.NEB. NEB PRN ×3 (17:28→22:33)
[2017-01-17] MEDS ORDERED: METRONIDAZOLE 500 MG PREMIXED 100 ML IVPB ONE ×2 (17:47→21:15)
--- NOTE | 2017-01-17 17:57 | HOSP ---
Subjective - Review of Symptoms Events since last encounter: patient developed increased abd pain, respiratory distress, fever Subjective: This is a 26 yo F with pmh of cholelithiasis, asthma, HTN and gestational diabetes, POD 3 s/p c section complicated by hemorrhage requiring 2 u pRBC last night, who developed respiratory distress at 5 pm today. Her vitals are HR 101, BP systolic 140's, O2 sat 85% RA, 91% on 2L NC, temp 100. 4. She states that she has had constant pelvic pain since her surgery but when she got up to walk to bathroom at 5 pm the pain became worse and she became sob. She states her abd pain is aggravated by deep inspiration and lying flat, is 10/10, diffuse but worse on the R side. She reports nausea and had one episode f nbnb vomiting. She also has mild dry cough, w/o hemoptysis. Last bm was 2 d ago and was normal. She denies chest pain but has palpitations. She has orthopnea nd per nursng staff, has increased peripheral edema. denies increased vaginal discharge. deneis leg pain, h/a, diarrhea, dysuria, urgency. General: No: Chills HEENT: No: Visual Changes, Dysphasia Cardiovascular: No: Chest Pain, Edema Gastrointestinal: No: Nausea, Diarrhea, Melena Genitourinary: No: Dysuria, Frequency, Hematuria Musculoskeletal: No: Back Pain, Muscle Pain Neurological: No: Weakness, Numbness Physical Examination Vital Signs: Vital Signs Temperature 99.3 F 01/17/17 14:00 Pulse Rate 75 01/17/17 14:00 Respiratory Rate 20 01/17/17 14:00 Blood Pressure 143/91 01/17/17 14:00 O2 Sat by Pulse Oximetry (%) 93 L 01/16/17 14:00 Constitutional: Yes: Moderate Distress Eyes: Yes: EOM Intact, PERRL. No: Ptosis, Sclera Icterus HENT: Yes: Atraumatic, Normocephalic Neck: No: Supple Cardiovascular: Yes: Tachycardia, S1, S2. No: Murmur Respiratory: Yes: Other (reduced breath sounds bibasilarly up to mid lung). No : Rhonchi, Wheezes Gastrointestinal: Yes: Distention, Hypoactive Bowel Sounds, Tenderness (RUQ, + murphys, + ultrasound murphys, also diffuse tenderness. Pelvic incision clean, nondrainin, no cellulitis.), Tenderness, Rebound Renal/: No: CVA Tenderness - Left, CVA Tenderness - Right Edema: LLE: 2+, RLE: 2+ Wound/Incision: Yes: Clean/Dry, Well Approximated. No: Draining, Reddened, Bleeding Neurological: Yes: Alert, Oriented Psychiatric: Yes: Alert, Oriented Labs: CBC, BMP 01/17/17 06:40 01/14/17 05:45 Hospitalist Encounter Assessment: This is a 26 yo F with pmh of cholelithiasis, asthma, HTN and gestational diabetes, POD 3 s/p c section complicated by hemorrhage requiring 2 u pRBC last night, who developed respiratory distress at 5 pm today. Bedside Ultrasound performed by medical screener: RUQ: normal appearing liver and R kidney, no fluid in morrisons pouch, GB nondistended, jacome normal thickness, contains gall stones and a lot of blood + US murphys. Large R pleural effusion LUQ: normal spleen and L kidney, no supra or infrasplenic fluid. Large L pleural effusion Pelvic: normal bladder, some free fluid in the pelvis SIRS, possible sepsis due to acute colecystitis, possibly gall stone pancreatitis in light of large pleural effusions, abscess, ileus -cbc w diff, cmp, lipase, LDH, ESR -CT abd/pelvis with IV contrast -morphine for pain -vitals q 1 h -ua, blood culture, urine protein and creat -add flagyl to current abx Acute respiratory distress -b/l pleural effusions on bedside US -patient appears volume overloaded -no wheezing or air flow restriction, low suspicion of asthma exacerbation -suspect post CHF vs ARDS -albuterol -CXR (large b/l effusions) -lasix IV 40 -TTE -consider cardio consult when more is known -stop IVF but will cautiously restart if intraabdominal infection or pancreatitis is discovered Visit type - Emergency Visit Emergency Visit: No - New Patient This patient is new to me today: Yes Date on this admission: 01/17/17 - Critical Care Critical Care patient: No
[2017-01-17] MEDS ORDERED: morphine CARPU-JECT 2 MG/1 ML DISP.SYRIN IVPUSH ONE (18:30)
[2017-01-17 18:39] LABS: BASOPHIL 0.1 % (0-2.0); EOSINOPHIL 0.8 % (0-4.5); MCH 22.7 pg (25.7-33.7); MEAN CELL VOLUME 73.3 fl (80-96); MEAN PLT VOLUME 9.6 fl (7.5-11.1); NEUTROPHILS 79.7 % (42.8-82.8); RDW 20.3 % (11.6-15.6); WHITE BLOOD COUNT 15.5 K/mm3 (4.0-10.0)
[2017-01-17 19:01] LABS: ALBUMIN 1.9 g/dl (3.4-5.0); ANION GAP 10 (8-16); CALCIUM 7.5 mg/dL (8.5-10.1); CO2 20 mmol/L (21-32); CREATININE 0.5 mg/dL (0.55-1.02); GLUCOSE,RANDOM 126 mg/dL (74-106); MAGNESIUM 1.7 mg/dL (1.8-2.4); SGOT/AST 45 U/L (15-37); SGPT/ALT 27 U/L (12-78)
[2017-01-17 19:03] LABS: ALK PHOS 228 U/L (45-117); BILIRUBIN,TOTAL 0.3 mg/dL (0.2-1.0); LDH 204 U/L (84-246); TOT PROT 5.2 g/dl (6.4-8.2)
[2017-01-17] MEDS ORDERED: FUROSEMIDE 40 MG/4 ML INJECTABLE VIAL IVPUSH ONE (19:12)
[2017-01-17 20:06] LABS: ANISOCYTOSIS 1+; HYPOCHROMIA 1+
[2017-01-17] MEDS ORDERED: MAGNESIUM SULF 50% (8.12 MEQ/2 ML-1 GM VIAL) IVPB ONE ×2 (20:08→21:15)
[2017-01-17 20:10] LABS: ARTERIAL BLD GAS O2 SATURATION 89.7 % (90-98.9); ARTERIAL BLOOD GAS BASE EXCESS -5.9 meq/l (-2-2); ARTERIAL BLOOD GAS pH 7.39 (7.35-7.45)
[2017-01-17 20:11] LABS: ALLENS TEST POSITIVE; ART PUNCT SITE LEFT RADIAL; ARTERIAL BLOOD GAS HCO3 17.7 meq/L (22-26); ARTERIAL BLOOD GAS PO2 61.3 mmHg (80-100); LPM/O2% 4L; PT. ON O2? YES; TYPE OF O2 NASAL
[2017-01-17] MEDS ORDERED: PIPERACILLIN/TAZOB 3.375 GM 3.375 GM in DEXTROSE 5%-WATER - 50 ML IVPB ONE (21:07)
--- NOTE | 2017-01-17 21:15 | HOSP ---
Physical Examination Vital Signs: Vital Signs Temperature 99.6 F 01/17/17 18:15 Pulse Rate 101 H 01/17/17 18:15 Respiratory Rate 20 01/17/17 18:15 Blood Pressure 145/97 01/17/17 18:15 O2 Sat by Pulse Oximetry (%) 83 L 01/16/17 14:00 Labs: CBC, BMP 01/17/17 17:45 01/17/17 17:45 Hospitalist Encounter Assessment: Patient is a 26 year old female S/P POD #3 complicated by hemorrhage requiring 2 units PRBC with a PMHx of gestational diabetes and anemia who developed respiratory distress this afternoon. Patient was found to have HR of 101 with 02 saturation of 85% on room air. Patient also reported right sided abdominal pain that is worse on inspiration. Day medical team ordered stat abdomen CT, placed on oxygen. I was asked to re-evaluate the patient and upon examination, patient was found dyspneic, saturating at 83% on 4L NC. Patient complains of shortness of breath with moderate abdominal pain. CT PHYSICAL EXAM: GENERAL: Awake, Alert and in moderate painful distress LUNGS: Decreased breath sounds at lower lung bases bilaterally HEART: Tachycardic, regular rhythm no murmurs appreciated ABDOMEN: Tenderness upon RUQ with (+) murphys sign. Pelvic incision c/d/i with no erythema or tenderness. EXTREMITIES: 3+ Pitting edema bilaterally ASSESSMENT AND PLAN Hypoxia -Rule out PE vs Post cardiomyopathy -WELLS SCORE 4.5 -ABG ordered -Lasix 40mg IV once -ECHO ORDERED -CHest CTA ordered -BNP ordered -Strict I&O's -Fluid Restrictions -Daily weights -Non-rebreather Acute Cholecystitis -CT showed cholecystitis -U/S ordered -Zosyn 4.5mg IV ordered -Blood cultures sent -NPO -Surgery consult placed Possible Chorioamnionitis -Zosyn ordered -ID consult placed Disposition: Transfer to ICU. Chest CTA pending CC Time : 45 minutes Visit type - Emergency Visit Emergency Visit: No - New Patient This patient is new to me today: Yes Date on this admission: 01/18/17 - Critical Care Critical Care patient: Yes Total Critical Care Time (in minutes): 45 Critical Care Statement: The care of this patient involved high complexity decision making to prevent further life threatening deterioration of the patient 's condition and/or to evalute & treat vital organ system(s) failure or risk of failure.
[2017-01-17] MEDS ORDERED: PIPERACILLIN/TAZOB 4.5 GM 4.5 GM in DEXTROSE 5%-WATER - 100 ML IVPB SCH (21:30)
--- NOTE | 2017-01-17 21:32 | HOSP ---
Subjective - Review of Symptoms Subjective: Pt. seen by and for shortness of breath and palpitations. No chest pain or pressure. Physical: Vs: 5L 02 88% Bp 152/98 rr 26 GEN: Young female resting in bed, able to speak full sentences in mild distress HEENT: NCAT, PERRL CARD: RRR S1, S2 RESP: Decreased Breath sounds at the bases ABD: BS X4, Tenderness to palpation ruq EXT: + 3 Pitting Edema CBCD WBC 15.5 K/mm3 (4.0-10.0) H 01/17/17 17:45 RBC 3.64 M/mm3 (3.60-5.2) 01/17/17 17:45 Hgb 8.3 GM/dL (10.7-15.3) L 01/17/17 17:45 Hct 26.7 % (32.4-45.2) L 01/17/17 17:45 MCV 73.3 fl (80-96) L 01/17/17 17:45 MCHC 31.0 g/dl (32.0-36.0) L 01/17/17 17:45 RDW 20.3 % (11.6-15.6) H 01/17/17 17:45 Plt Count No Result Required. 01/17/17 17:45 MPV 9.6 fl (7.5-11.1) 01/17/17 17:45 CMP Sodium 140 mmol/L (136-145) 01/17/17 17:45 Potassium 4.2 mmol/L (3.5-5.1) 01/17/17 17:45 Chloride 110 mmol/L (98-107) H 01/17/17 17:45 Carbon Dioxide 20 mmol/L (21-32) L 01/17/17 17:45 Anion Gap 10 (8-16) 01/17/17 17:45 BUN 8 mg/dL (7-18) D 01/17/17 17:45 Creatinine 0.5 mg/dL (0.55-1.02) L 01/17/17 17:45 Creat Clearance w eGFR > 60 (>60) 01/17/17 17:45 Random Glucose 126 mg/dL (74-106) H D 01/17/17 17:45 Calcium 7.5 mg/dL (8.5-10.1) L 01/17/17 17:45 Total Bilirubin 0.3 mg/dL (0.2-1.0) D 01/17/17 17:45 AST 45 U/L (15-37) H 01/17/17 17:45 ALT 27 U/L (12-78) D 01/17/17 17:45 Alkaline Phosphatase 228 U/L (45-117) H 01/17/17 17:45 Total Protein 5.2 g/dl (6.4-8.2) L 01/17/17 17:45 Albumin 1.9 g/dl (3.4-5.0) L 01/17/17 17:45 CARDIAC ENZYMES Troponin I 0.02 ng/ml (0.00-0.05) 01/17/17 19:00 ABG Results ABG pH 7.39 (7.35-7.45) 01/17/17 20:00 ABG pCO2 at Pt Temp 29.6 mmHg (35-45) L D 01/17/17 20:00 ABG pO2 at Pt Temp 61.3 mmHg (80-100) L D 01/17/17 20:00 ABG HCO3 17.7 meq/L (22-26) L 01/17/17 20:00 ABG O2 Sat (Measured) 89.7 % (90-98.9) L 01/17/17 20:00 ABG O2 Content 10.4 % vol (15-22) L 01/17/17 20:00 ABG Base Excess -5.9 meq/l (-2-2) L 01/17/17 20:00 A/P.) 26 yo F POD 3 C- section with hx of choleycystitis, Gest DM, and anemia ( post 2 U PRBC 01/16) presents with shortness of breath, fever and palpitations 1.) Shortness of Breath DDx: PE (wells score 4.5 vs HF/ Post cardiomyopathy)/ Sepsis - ABG- Reviewed placed 100%NRB, cannot do CTA for 24 hrs as pt. received contrast load - Lasix 40 IV X1 - Strict I/O - Fluid restrict - Echo complete - Daily weights - Duplex LE 2.) Acute Choleycystitis - Abd US - C/W Zosyn - ID/ Sx consult - Blood Cx's 3.) Chorioamnionitis - C/ W Zosyn DVT PPX Case discussed with ICU and OB- Place in ICU - CC TIME 45 minutes Physical Examination Vital Signs: Vital Signs Temperature 99.6 F 01/17/17 18:15 Pulse Rate 101 H 01/17/17 18:15 Respiratory Rate 20 01/17/17 18:15 Blood Pressure 145/97 01/17/17 18:15 O2 Sat by Pulse Oximetry (%) 93 L 01/16/17 14:00 Labs: CBC, BMP 01/17/17 17:45 01/17/17 17:45
--- NOTE | 2017-01-17 21:45 | PN ---
Progress Note (short form) - Note Progress Note: hospitalist alled me to state pt has SOB, ctscan shows significant bilateral pleural effusion & also Ac cholecystitis is suspected, hence she is transfered to ICU pt does not c/o pain presently in RUQ, she states she was given iv Morphine 4 mg . she does not c/o vomiting she has pain at incision site /10 bleeding is minimal . Temp 97.8 , pulse 77/min, BP 144/106 , pt on 2 l O2 Bynasal canula, O2 sat 97% Rs breathing with mild effort bilateral diminished breathing at bases pa soft , not distended BS active . ptpassing flatus & bm done daily voided 600 ml urine in icu (after 40 mg lasix given ) no cva tederness lochia rubra minimal . incsion wound healing well. Bilateral pedal dedma upto mid calves no calf tederness Ass . s/p c/section day #3 s/p Ac chorioamnionitis, FTP(descent)in labor s/p severe Anemia , rx 2 pack cell transfusions SOB, , Bilateral Pleural effusion HTN h/o asthma, no wheezing h/o cholelithiasis , Ac cholecystitis suspected Iv Ampicillin & gentamicin is d/charli she received flagyl iv one dose was given . IV Zosyn presntly Managment as per ICU fisheries officer team keep strict i/o Problem List - Problems (1) 38 to 41 weeks gestation of Code(s): LHH4126 - (2) Labor established Code(s): RPO7133 - (3) Anemia Code(s): D64.9 - ANEMIA, UNSPECIFIED Qualifiers: Anemia type: iron deficiency (4) Cholelithiasis Code(s): K80.20 - CALCULUS OF GALLBLADDER W/O CHOLECYSTITIS W/O OBSTRUCTION (5) Cholelithiasis affecting in third trimester, antepartum Code(s): O26.613 - LIVER AND BILIARY TRACT DISORD IN , THIRD TRIMESTER K80.20 - CALCULUS OF GALLBLADDER W/O CHOLECYSTITIS W/O OBSTRUCTION (6) Gestational diabetes mellitus (GDM) controlled on oral hypoglycemic drug Code(s): O24.415 - GESTATNL DIABETES IN PREG, CTRL BY ORAL HYPOGLYCEMIC DRUGS (7) Gestational diabetes mellitus (GDM) in second trimester controlled on oral hypoglycemic drug Code(s): O24.415 - GESTATNL DIABETES IN PREG, CTRL BY ORAL HYPOGLYCEMIC DRUGS (8) Gestational diabetes mellitus (GDM) in third trimester controlled on oral hypoglycemic drug Code(s): O24.415 - GESTATNL DIABETES IN PREG, CTRL BY ORAL HYPOGLYCEMIC DRUGS (9) Acute chorioamnionitis Code(s): O41.1290 - CHORIOAMNIONITIS, UNSP TRIMESTER, NOT APPLICABLE OR UNSP (10) Failure of descent in labor, delivered, current hospitalization Code(s): O62.2 - OTHER UTERINE INERTIA (11) Status post primary low transverse section Code(s): Z98.891 - HISTORY OF UTERINE SCAR FROM PREVIOUS SURGERY
[2017-01-17] MEDS: PIPERACILLIN/TAZOB 4.5 GM/100 ML PRE-DOCKED IVPB SCH (22:07)
--- NOTE | 2017-01-17 22:18 | CONSULT ---
Consult Consult Specialty:: Pulm/CCM Reason for Consultation:: SOB; pleural effusions - History of Present Illness Chief Complaint: SOB History of Present Illness: 26yow with PMHx of asthma now 3 days post ceasarian section for full term which has been complicated by cholecystitis treated with ampicillin( unclear if course completed), gestational diabetes and chorioamnionitis in setting of prolonged labor requiring cesarian section delivery. Post -op she was transfused 2U PRBC for hgb 6.8 with approriate bmp to 8.3. This am she again c/o of RUQ pain, low grade fever to 100F and was noted to be hypoxic and in mild distress. CT abd pelvis significant for bilat moderate pleural effusions , RUQ free fluid, ? cholecystitis, no biliary tract dilatation. Notable labs WBC 15.5, lact 1.6, trop <0.02, Alk phos 228. ABG on 5L with Pao2 61. She was started on amp and gent then escalated to Zoyn, and flagyl. Lasix 40mg given. She was transferred to ICU fro further management. In ICU rec'd A+O x3 in mild distress BP144/110; Hr 80's, O2 sat 97% on 5L NC. Voided ~2L with diuretic. Attending accompanied pt. 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 No: HTN Pulmonary: Yes: Asthma (rx inhaler prn) Hepatobiliary: Yes: Cholelithiasis, Cholecystitis (rx iv ancef , iv ampicillin followed by po amoxcilin) Renal/: Yes: UTI ...LMP: 03/20/16 Infectious Disease: No: AIDS, HIV, STD's Psych: Yes: Anxiety Endocrine: Yes: Other (GDM rx po glyburide 2.5 mg bid & diet controlled) - Past Surgical History Past Surgical History: Yes: None - Alcohol/Substance Use Hx Alcohol Use: No History of Substance Use: reports: None - Smoking History Smoking history: Never smoked Have you smoked in the past 12 months: No Home Medications - Allergies Allergies/Adverse Reactions: Allergies Allergy/AdvReac Type Severity Reaction Status Date / Time No Known Allergies Allergy Verified 01/14/17 06:51 - Home Medications Home Medications: Ambulatory Orders Glyburide/Metformin HCl [Glyburide-Metformin 2.5-500 mg] 2.5 mg PO BID 12/30/16 Albuterol Sulfate Inhaler - [Ventolin Hfa Inhaler -] 1 puff IH Q4H PRN 01/13/17 Vitamins (Sjr) - 1 tab PO DAILY 01/13/17 Family Disease History - Family Disease History Family History: Unremarkable Review of Systems - Review of Systems Respiratory: reports: SOB, SOB on Exertion Gastrointestinal: reports: Other (RUQ pain) Physical Exam Vital Signs: Vital Signs Temperature 99.6 F 01/17/17 18:15 Pulse Rate 75 01/17/17 20:30 Respiratory Rate 20 01/17/17 18:15 Blood Pressure 145/97 01/17/17 18:15 O2 Sat by Pulse Oximetry (%) 99 01/17/17 20:30 Constitutional: Yes: Mild Distress Eyes: Yes: WNL HENT: Yes: Atraumatic Neck: Yes: Supple, Trachea Midline Cardiovascular: Yes: Regular Rate and Rhythm Respiratory: Yes: Diminished (BS diminished bilat middle and lower lobes) Gastrointestinal: Yes: Soft, Other Renal/: Yes: Vaginal Bleeding (post bleeding normal amt and color) Extremities: Yes: WNL Edema: Yes Edema: LLE: 1+, RLE: 1+ Peripheral Pulses WNL: Yes Integumentary: Yes: WNL Wound/Incision: Yes: Clean/Dry, Well Approximated, [place] Intact (suprpubic surgical incision with martin intact), Open to air Neurological: Yes: Alert, Oriented ...Motor Strength: WNL Psychiatric: Yes: WNL Labs: CBC, BMP 01/17/17 17:45 01/17/17 17:45 CBC,CMP WBC 15.5 K/mm3 (4.0-10.0) H 01/17/17 17:45 RBC 3.64 M/mm3 (3.60-5.2) 01/17/17 17:45 Hgb 8.3 GM/dL (10.7-15.3) L 01/17/17 17:45 Hct 26.7 % (32.4-45.2) L 01/17/17 17:45 MCV 73.3 fl (80-96) L 01/17/17 17:45 MCH 22.7 pg (25.7-33.7) L 01/17/17 17:45 MCHC 31.0 g/dl (32.0-36.0) L 01/17/17 17:45 RDW 20.3 % (11.6-15.6) H 01/17/17 17:45 Plt Count No Result Required. 01/17/17 17:45 MPV 9.6 fl (7.5-11.1) 01/17/17 17:45 Neutrophils % 79.7 % (42.8-82.8) 01/17/17 17:45 Lymphocytes % 12.2 % (8-40) 01/17/17 17:45 Monocytes % 7.2 % (3.8-10.2) 01/17/17 17:45 Eosinophils % 0.8 % (0-4.5) 01/17/17 17:45 Basophils % 0.1 % (0-2.0) 01/17/17 17:45 Band Neutrophils 8.0 % (0-10) 01/15/17 07:25 Nucleated RBCs 2 % (0-0) H 01/15/17 07:25 Differential Comment Manual diff done 01/15/17 07:25 Platelet Estimate Adequate (NORMAL) 01/17/17 06:40 Platelet Comment Mod plt clumping 01/17/17 17:45 Platelet Comment No clotting detected 01/14/17 05:45 Hypochromic-Microcytic 1+ 01/17/17 17:45 Anisocytosis 1+ 01/17/17 17:45 Microcytosis 1+ 01/14/17 05:45 Macrocytosis Few 01/14/17 05:45 Rouleaux 1+ 01/15/17 07:25 ESR 65 mm/hr (0-20) H 01/17/17 17:45 Sodium 140 mmol/L (136-145) 01/17/17 17:45 Potassium 4.2 mmol/L (3.5-5.1) 01/17/17 17:45 Chloride 110 mmol/L (98-107) H 01/17/17 17:45 Carbon Dioxide 20 mmol/L (21-32) L 01/17/17 17:45 Anion Gap 10 (8-16) 01/17/17 17:45 BUN 8 mg/dL (7-18) D 01/17/17 17:45 Creatinine 0.5 mg/dL (0.55-1.02) L 01/17/17 17:45 Creat Clearance w eGFR > 60 (>60) 01/17/17 17:45 POC Glucometer 108 UNITS (()) 01/17/17 17:03 Random Glucose 126 mg/dL (74-106) H D 01/17/17 17:45 Lactic Acid 1.6 mmol/L (0.4-2.0) 01/17/17 17:45 Calcium 7.5 mg/dL (8.5-10.1) L 01/17/17 17:45 Magnesium 1.7 mg/dL (1.8-2.4) L 01/17/17 17:45 Total Bilirubin 0.3 mg/dL (0.2-1.0) D 01/17/17 17:45 AST 45 U/L (15-37) H 01/17/17 17:45 ALT 27 U/L (12-78) D 01/17/17 17:45 Alkaline Phosphatase 228 U/L (45-117) H 01/17/17 17:45 LD Total 204 U/L (84-246) 01/17/17 17:45 Troponin I 0.02 ng/ml (0.00-0.05) 01/17/17 19:00 Total Protein 5.2 g/dl (6.4-8.2) L 01/17/17 17:45 Albumin 1.9 g/dl (3.4-5.0) L 01/17/17 17:45 Lipase 47 U/L (73-393) L 01/17/17 18:50 Imaging - Results Chest X-ray: Report Reviewed, Image Reviewed (Bilat pleural effusions) Cat Scan: Image Reviewed (Bilat pleural effusions official report pending) Problem List - Problems (1) 38 to 41 weeks gestation of Code(s): [id number] - (2) Acute chorioamnionitis Code(s): O41.1290 - CHORIOAMNIONITIS, UNSP TRIMESTER, NOT APPLICABLE OR UNSP (3) Anemia Code(s): D64.9 - ANEMIA, UNSPECIFIED Qualifiers: Anemia type: iron deficiency (4) Cholelithiasis Code(s): K80.20 - CALCULUS OF GALLBLADDER W/O CHOLECYSTITIS W/O OBSTRUCTION (5) Cholelithiasis affecting in third trimester, antepartum Code(s): O26.613 - LIVER AND BILIARY TRACT DISORD IN , THIRD TRIMESTER K80.20 - CALCULUS OF GALLBLADDER W/O CHOLECYSTITIS W/O OBSTRUCTION (6) Failure of descent in labor, delivered, current hospitalization Code(s): O62.2 - OTHER UTERINE INERTIA (7) Gestational diabetes mellitus (GDM) controlled on oral hypoglycemic drug Code(s): O24.415 - GESTATNL DIABETES IN PREG, CTRL BY ORAL HYPOGLYCEMIC DRUGS Assessment/Plan 26yow with PMHx of asthma now 3 days post ceasarian section for full term which has been complicated by cholecystitis treated with ampicillin( unclear if course completed), gestational diabetes and chorioamnionitis in setting of prolonged labor requiring cesarian section delivery. Post -op she was transfused 2U PRBC for hgb 6.8 with approriate bmp to 8.3. This am she again c/o of RUQ pain, low grade fever to 100F and was noted to be hypoxic and in mild distress. Respiratory insufficiency in the setting of fluid overload with c/f post- cardiomyopathy. Plan: Pulm: Respiratory insufficiency in the setting of fluid overload; c/f cardiomyopathy +/- PE -NCO2 support for O2sat>95% -Continue lasix diuresis for net negative as elva -IS -CTA in am -BLE dopplers -BiPAP if decomps -Prophylactic Heparin SQ CV: c/f Post cardiomyopathy; HTN -radiation monitor -Trend BNP, trop -ECHO -Aggressive diuresis ID: Leukocytosis in setting of cholecytitis+/- chorioamnionitis -ID consult -Cultures -Continue empiric zosyn -Trend lactate Renal: -Strict I+Os -Monitor and replete electrolytes GI: Cholecystitis -ID as above -pain management -PPI -Bowel regimen Proph Hep SQ PPI
[2017-01-17 22:24] LABS: URINE APPEARANCE CLEAR; URINE BILIRUBIN NEGATIVE (NEGATIVE); URINE COLOR COLORLESS; URINE GLUCOSE (UA) NEGATIVE (NEGATIVE); URINE KETONE NEGATIVE (NEGATIVE); URINE NITRITE NEGATIVE (NEGATIVE); URINE PROTEIN NEGATIVE (NEGATIVE); URINE UROBILINOGEN NEGATIVE E.U./dl (0.2-1.0)
[2017-01-17] MEDS ORDERED: SENNOSIDES/DOCUSATE COMBO (SENNA PLUS) TABLET (UD) PO PRN (22:33)
[2017-01-17] MEDS ORDERED: METHYLERGONOVINE MALEATE 0.2 MG/1 ML AMP IM PRN (22:33)
[2017-01-17] MEDS ORDERED: oxyCODONE HCL 5 MG TABLET PO PRN (22:33)
[2017-01-17] MEDS ORDERED: SIMETHICONE 80 MG TAB.CHEW (FP) PO PRN (22:33)
[2017-01-17] MEDS ORDERED: BISACODYL 10 MG SUPP.RECT RC PRN (22:33)
[2017-01-17] MEDS ORDERED: ACETAMINOPHEN 325 MG TABLET (FP) PO PRN (22:33)
[2017-01-17] MEDS ORDERED: IBUPROFEN 600 MG TABLET (FP) PO PRN (22:33)
[2017-01-17 22:34] LABS: URINE BLOOD 3+ (NEGATIVE); URINE LEUK ESTERASE TRACE (NEGATIVE)
[2017-01-17 22:36] LABS: URINE RBC 29 /hpf (0-3); URINE WBC 9 /hpf (3-5)
[2017-01-17] MEDS: INSULIN SLIDING SCALE (NOVOLOG) 1 VIAL SQ SCH (23:37)
[2017-01-17] MEDS ORDERED: HEPARIN NA (PORCINE) 5,000 UNITS/ML 1ML VIAL ONE (23:40)
[2017-01-17] MEDS ORDERED: HEPARIN NA (PORCINE) 5,000 UNITS/ML 1ML VIAL SQ ONE (23:48)
[2017-01-18] MEDS ORDERED: FUROSEMIDE 40 MG/4 ML INJECTABLE VIAL ONE (00:25)
[2017-01-18] MEDS: PIPERACILLIN/TAZOB 4.5 GM/100 ML PRE-DOCKED IVPB SCH ×3 (01:03→17:18)
[2017-01-18] MEDS ORDERED: FUROSEMIDE 40 MG/4 ML INJECTABLE VIAL IVPUSH ONE ×2 (02:00→07:45)
[2017-01-18] MEDS ORDERED: HEMOQUE TEST 1 EACH EACH ONE (05:31)
[2017-01-18] MEDS: oxyCODONE HCL 5 MG TABLET PO PRN ×2 (05:38→17:16)
[2017-01-18] MEDS: HEPARIN NA (PORCINE) 5,000 UNITS/ML 1ML VIAL SQ SCH ×3 (05:40→22:09)
[2017-01-18 05:48] LABS: BASOPHIL 0.5 % (0-2.0); MCH 22.8 pg (25.7-33.7); MCHC 31.8 g/dl (32.0-36.0); MEAN CELL VOLUME 71.8 fl (80-96); NEUTROPHILS 75.1 % (42.8-82.8); RDW 21.1 % (11.6-15.6); WHITE BLOOD COUNT 17.6 K/mm3 (4.0-10.0)
[2017-01-18] MEDS: INSULIN SLIDING SCALE (NOVOLOG) 1 VIAL SQ SCH ×4 (06:05→22:14)
[2017-01-18 07:00] LABS: ALK PHOS 226 U/L (45-117); ANION GAP 9 (8-16); BILIRUBIN,TOTAL 0.6 mg/dL (0.2-1.0); CALCIUM 7.5 mg/dL (8.5-10.1); CO2 26 mmol/L (21-32); CREATININE 0.7 mg/dL (0.55-1.02); GLUCOSE,RANDOM 84 mg/dL (74-106); MAGNESIUM 1.9 mg/dL (1.8-2.4); PHOSPHOROUS 4.5 mg/dL (2.5-4.9); SGOT/AST 39 U/L (15-37); SGPT/ALT 30 U/L (12-78); TOT PROT 5.4 g/dl (6.4-8.2)
[2017-01-18] MEDS ORDERED: ACETAMINOPHEN 1000 MG/100 ML VIAL (NON FORMULARY) IVPB ONE (07:17)
[2017-01-18] MEDS: PRENATAL VITAMINS W/ FOLIC ACID TABLET (FP) PO SCH (09:16)
[2017-01-18] MEDS: FERROUS SO4 325 MG TABLET (FP) PO SCH ×2 (09:20→22:09)
[2017-01-18] MEDS: RANITIDINE HCL 150 MG TABLET (FP) PO SCH ×2 (09:20→22:09)
--- NOTE | 2017-01-18 11:48 | PN ---
Teaching Attending Note Name of Resident: Ty Mujica ATTENDING PHYSICIAN STATEMENT I saw and evaluated the patient. I reviewed the resident's note and discussed the case with the resident. I agree with the resident's findings and plan as documented. SUBJECTIVE: Pt seen and examined in the ICU. Feeling better today, less short of breath. Denies fevers, chills, chest pain. No palpitations. Saturating well off supplemental oxygen. Not tachycardic. Diuresing well with lasix OBJECTIVE: Last Vital Signs Temp Pulse Resp BP Pulse Ox 97.8 F 64 20 129/86 98 01/18/17 10:00 01/18/17 10:00 01/18/17 10:00 01/18/17 10:00 01/18/17 09:00 Intake & Output 01/15/17 01/16/17 01/17/17 01/18/17 23:59 23:59 23:59 23:59 Intake Total 2227 2240 1980 200 Output Total 3400 500 3400 4250 Balance -1173 1740 -1420 -4050 Weight 151 lb 9 oz Gen: mildly tachypneic with exertion Heart: RRR Lung: decreased breath sounds 1/2-2/3 up, few rales Abd: soft, nontender, incision clean Ext: + edema CBC, BMP 01/18/17 05:10 01/18/17 05:10 Active Medications Acetaminophen (Tylenol -) 650 mg PO Q4H PRN PRN Reason: FEVER OR PAIN Albuterol Sulfate (Ventolin 0.083% Nebulizer Soln -) 1 amp NEB Q4H PRN PRN Reason: SHORT OF BREATH/WHEEZING Bisacodyl (Dulcolax Suppository -) 10 mg RC PRN PRN PRN Reason: CONSTIPATION Chlorhexidine Gluconate (Hibiclens For Decolonization -) 1 applic TP HS [facility] Ferrous Sulfate (Feosol -) 325 mg PO BID [facility] Last Admin: 01/18/17 09:20 Dose: 325 mg Heparin Sodium (Porcine) (Heparin -) 5,000 unit SQ TID [facility] Last Admin: 01/18/17 05:40 Dose: 5,000 unit Ibuprofen (Motrin -) 600 mg PO Q4H PRN PRN Reason: PAIN Insulin Aspart (Novolog Vial Sliding Scale -) 1 vial SQ ACHS [facility] PRN Reason: Protocol Last Admin: 01/18/17 06:05 Dose: Not Given Methylergonovine Maleate (Methergine Injection -) 0.2 mg IM Q4H PRN PRN Reason: Excessive Bleeding (L&D) Mupirocin (Bactroban Ointment (For Decolonization) -) 1 applic NS BID [facility] Stop: 01/23/17 09:59 Ondansetron HCl (Zofran Injection) 4 mg IVPB Q4H PRN PRN Reason: NAUSEA AND/OR VOMITING Oxycodone HCl (Roxicodone -) 5 mg PO Q4H PRN PRN Reason: PAIN LEVEL 1-5 Last Admin: 01/18/17 01:14 Dose: 5 mg Oxycodone HCl (Roxicodone -) 10 mg PO Q4H PRN PRN Reason: PAIN LEVEL 6-10 Last Admin: 01/18/17 05:38 Dose: 10 mg Piperacillin Sod/Tazobactam Sod (Zosyn 4.5gm Ivpb (Pre-Docked)) 4.5 gm IVPB Q8H -IV [facility]IK Last Admin: 01/18/17 09:15 Dose: 4.5 gm Multivit/Folic Acid/Iron ( Vitamins (Sjr) -) 1 tab PO DAILY [facility] Last Admin: 01/18/17 09:16 Dose: 1 tab Ranitidine HCl (Zantac -) 150 mg PO BID [facility] Last Admin: 01/18/17 09:20 Dose: 150 mg Senna/Docusate Sodium (Pericolace -) 2 tablet PO HS PRN PRN Reason: CONSTIPATION Simethicone (Mylicon -) 80 mg PO Q4H PRN PRN Reason: GAS ASSESSMENT AND PLAN: s/p Acute Blood Loss Anemia s/p PRBC transfusions Acute Hypoxic Respiratory Failure likely due to Volume Overload r/o Post Cardiomyopathy Cholelithiasis r/o Cholecystitis - IV lasix - monitor urine output, creatinine - keep net negative - echocardiogram - empiric antibiotics - monitor fever curve, WBC trend - monitor H/H - lower suspicion for PE as CXR grossly overloaded with large bilateral effusions, pt without tachycardia, hypoxia after diuresis and negative LE dopplers - GI/surgery eval for ultrasound findings - pain control - incentive spirometry - DVT prophylaxis - continue ICU monitoring
--- NOTE | 2017-01-18 13:16 | PN ---
Teaching Attending Note Name of Resident: Henri Kaur ATTENDING PHYSICIAN STATEMENT I saw and evaluated the patient. I reviewed the resident's note and discussed the case with the resident. I agree with the resident's findings and plan as documented. SUBJECTIVE:SOB improved , no cough , no chest pain OBJECTIVE: Vital Signs Temperature 97.8 F 01/18/17 10:00 Pulse Rate 66 01/18/17 12:00 Respiratory Rate 18 01/18/17 12:00 Blood Pressure 128/92 01/18/17 12:00 O2 Sat by Pulse Oximetry (%) 98 01/18/17 09:00 Gen: mildly tachypneic with exertion Heart: RRR Lung: decreased breath sounds 1/2-2/3 up, few rales Abd: soft, nontender, incision clean Ext: + edema CBC, BMP 01/18/17 05:10 01/18/17 05:10 CT abdomen - acute cholecystitis CXR - b/l pleural effusions/ atelectasis ASSESSMENT AND PLAN: 26 year old female 4 days post / c- section developed respiratory failure /hypoxia. Has b/l pleural effusions. 1. Hypoxia - improved - diff dx includes cardiomyopathy, fluid overload , pneumonia, dependant atelectasis. PE is unlikely since she responded to IV LAsix and now O2 sat is 100% on 3L . - echo - I&O - CXR repeat PA LAT - if no improvement consider CT chest 2. ACute cholecystitis - was managed conservatively - on Zosyn - surgical evaluation will follow closely
--- NOTE | 2017-01-18 14:08 | PN ---
Physical Exam: SUBJECTIVE: Patient seen and examined. Pt sitting comfortably in chair this morning, stated that she had generalized abdominal pain. Denied any SOB, chest pain, or extremity pain. On 3L 02 via NC. OBJECTIVE: Vital Signs Period Temp Pulse Resp BP Sys/Naik Pulse Ox Last 24 Hr 97.8 F-99.6 F 63-105 18-36 121-170/63-106 85-99 GENERAL: The patient is awake, alert, and sitting in chair. Fully oriented, in no acute distress. HEAD: Normal with no signs of trauma. EYES: PERRL, extraocular movements intact, sclera anicteric, conjunctiva clear NECK: Trachea midline, supple. LUNGS: decreased breath sounds bilaterally HEART: Regular rate and rhythm, S1, S2, no rubs/murmurs/gallops. ABDOMEN: slightly tender to palpation in all four quadrants EXTREMITIES: 2+ posterior tibial pulses, pitting edema bilaterally Laboratory Results - last 24 hr 01/17/17 01/17/17 01/17/17 17:03 17:45 17:45 WBC 15.5 H RBC 3.64 Hgb 8.3 L Hct 26.7 L MCV 73.3 L MCH 22.7 L MCHC 31.0 L RDW 20.3 H Plt Count No Result Required. MPV 9.6 Neutrophils % 79.7 Lymphocytes % 12.2 Monocytes % 7.2 Eosinophils % 0.8 Basophils % 0.1 Platelet Comment Mod plt clumping Hypochromic-Microcytic 1+ Anisocytosis 1+ ESR Puncture Site ABG pH ABG pCO2 at Pt Temp ABG pO2 at Pt Temp ABG HCO3 ABG O2 Sat (Measured) ABG O2 Content ABG Base Excess Jeremiah Test O2 Delivery Device Oxygen Flow Rate PEEP Sodium 140 Potassium 4.2 Chloride 110 H Carbon Dioxide 20 L Anion Gap 10 BUN 8 D Creatinine 0.5 L Creat Clearance w eGFR > 60 POC Glucometer 108 Random Glucose 126 H D Lactic Acid Calcium 7.5 L Phosphorus Magnesium 1.7 L Total Bilirubin 0.3 D AST 45 H ALT 27 D Alkaline Phosphatase 228 H LD Total 204 Troponin I B-Natriuretic Peptide Total Protein 5.2 L Albumin 1.9 L Lipase Urine Color Urine Appearance Urine pH Ur Specific [place] Urine Protein Urine Glucose (UA) Urine Ketones Urine Blood Urine Nitrite Urine Bilirubin Urine Urobilinogen Ur Leukocyte Esterase Urine RBC Urine WBC Ur Epithelial Cells Urine Creatinine 01/17/17 01/17/17 01/17/17 17:45 17:45 17:45 WBC RBC Hgb Hct MCV MCH MCHC RDW Plt Count MPV Neutrophils % Lymphocytes % Monocytes % Eosinophils % Basophils % Platelet Comment Hypochromic-Microcytic Anisocytosis ESR 65 H Puncture Site ABG pH ABG pCO2 at Pt Temp ABG pO2 at Pt Temp ABG HCO3 ABG O2 Sat (Measured) ABG O2 Content ABG Base Excess Jeremiah Test O2 Delivery Device Oxygen Flow Rate PEEP Sodium Potassium Chloride Carbon Dioxide Anion Gap BUN Creatinine Creat Clearance w eGFR POC Glucometer Random Glucose Lactic Acid 1.6 Calcium Phosphorus Magnesium Total Bilirubin AST ALT Alkaline Phosphatase LD Total Cancelled Troponin I B-Natriuretic Peptide Total Protein Albumin Lipase Urine Color Urine Appearance Urine pH Ur Specific [place] Urine Protein Urine Glucose (UA) Urine Ketones Urine Blood Urine Nitrite Urine Bilirubin Urine Urobilinogen Ur Leukocyte Esterase Urine RBC Urine WBC Ur Epithelial Cells Urine Creatinine 01/17/17 01/17/17 01/17/17 18:50 19:00 20:00 WBC RBC Hgb Hct MCV MCH MCHC RDW Plt Count MPV Neutrophils % Lymphocytes % Monocytes % Eosinophils % Basophils % Platelet Comment Hypochromic-Microcytic Anisocytosis ESR Puncture Site Left radial ABG pH 7.39 ABG pCO2 at Pt Temp 29.6 L D ABG pO2 at Pt Temp 61.3 L D ABG HCO3 17.7 L ABG O2 Sat (Measured) 89.7 L ABG O2 Content 10.4 L ABG Base Excess -5.9 L Jeremiah Test Positive O2 Delivery Device Nasal Oxygen Flow Rate 4l PEEP 0.0 Sodium Potassium Chloride Carbon Dioxide Anion Gap BUN Creatinine Creat Clearance w eGFR POC Glucometer Random Glucose Lactic Acid Calcium Phosphorus Magnesium Total Bilirubin AST ALT Alkaline Phosphatase LD Total Troponin I 0.02 B-Natriuretic Peptide Total Protein Albumin Lipase 47 L Urine Color Urine Appearance Urine pH Ur Specific [place] Urine Protein Urine Glucose (UA) Urine Ketones Urine Blood Urine Nitrite Urine Bilirubin Urine Urobilinogen Ur Leukocyte Esterase Urine RBC Urine WBC Ur Epithelial Cells Urine Creatinine 01/17/17 01/17/17 01/17/17 21:30 21:30 22:00 WBC RBC Hgb Hct MCV MCH MCHC RDW Plt Count MPV Neutrophils % Lymphocytes % Monocytes % Eosinophils % Basophils % Platelet Comment Hypochromic-Microcytic Anisocytosis ESR Puncture Site ABG pH ABG pCO2 at Pt Temp ABG pO2 at Pt Temp ABG HCO3 ABG O2 Sat (Measured) ABG O2 Content ABG Base Excess Jeremiah Test O2 Delivery Device Oxygen Flow Rate PEEP Sodium Potassium Chloride Carbon Dioxide Anion Gap BUN Creatinine Creat Clearance w eGFR POC Glucometer Random Glucose Lactic Acid 2.0 Calcium Phosphorus Magnesium Total Bilirubin AST ALT Alkaline Phosphatase LD Total Troponin I B-Natriuretic Peptide 3289.73 H Total Protein Albumin Lipase Urine Color Colorless Urine Appearance Clear Urine pH 6.0 Ur Specific [place] 1.010 Urine Protein Negative Urine Glucose (UA) Negative Urine Ketones Negative Urine Blood 3+ H Urine Nitrite Negative Urine Bilirubin Negative Urine Urobilinogen Negative Ur Leukocyte Esterase Trace H Urine RBC 29 Urine WBC 9 Ur Epithelial Cells Rare Urine Creatinine 01/17/17 01/17/17 01/17/17 22:00 22:00 23:25 WBC RBC Hgb Hct MCV MCH MCHC RDW Plt Count MPV Neutrophils % Lymphocytes % Monocytes % Eosinophils % Basophils % Platelet Comment Hypochromic-Microcytic Anisocytosis ESR Puncture Site ABG pH ABG pCO2 at Pt Temp ABG pO2 at Pt Temp ABG HCO3 ABG O2 Sat (Measured) ABG O2 Content ABG Base Excess Jeremiah Test O2 Delivery Device Oxygen Flow Rate PEEP Sodium Potassium Chloride Carbon Dioxide Anion Gap BUN Creatinine Creat Clearance w eGFR POC Glucometer 111.51816 Random Glucose Lactic Acid Calcium Phosphorus Magnesium Total Bilirubin AST ALT Alkaline Phosphatase LD Total Troponin I B-Natriuretic Peptide Total Protein Albumin Lipase Urine Color Urine Appearance Urine pH Ur Specific [place] Urine Protein 6 Urine Glucose (UA) Urine Ketones Urine Blood Urine Nitrite Urine Bilirubin Urine Urobilinogen Ur Leukocyte Esterase Urine RBC Urine WBC Ur Epithelial Cells Urine Creatinine < 13.0 L 01/18/17 01/18/17 01/18/17 05:10 05:10 05:34 WBC 17.6 H RBC 3.94 Hgb 9.0 L Hct 28.3 L MCV 71.8 L MCH 22.8 L MCHC 31.8 L RDW 21.1 H Plt Count MPV Neutrophils % 75.1 Lymphocytes % 13.6 Monocytes % 9.8 Eosinophils % 1.0 Basophils % 0.5 D Platelet Comment Hypochromic-Microcytic Anisocytosis ESR Puncture Site ABG pH ABG pCO2 at Pt Temp ABG pO2 at Pt Temp ABG HCO3 ABG O2 Sat (Measured) ABG O2 Content ABG Base Excess Jeremiah Test O2 Delivery Device Oxygen Flow Rate PEEP Sodium 139 Potassium 3.7 Chloride 104 Carbon Dioxide 26 D Anion Gap 9 BUN 6 L D Creatinine 0.7 D Creat Clearance w eGFR > 60 POC Glucometer 113.62227 Random Glucose 84 D Lactic Acid Calcium 7.5 L Phosphorus 4.5 Magnesium 1.9 Total Bilirubin 0.6 D AST 39 H ALT 30 Alkaline Phosphatase 226 H LD Total Troponin I B-Natriuretic Peptide Total Protein 5.4 L Albumin 2.0 L Lipase Urine Color Urine Appearance Urine pH Ur Specific [place] Urine Protein Urine Glucose (UA) Urine Ketones Urine Blood Urine Nitrite Urine Bilirubin Urine Urobilinogen Ur Leukocyte Esterase Urine RBC Urine WBC Ur Epithelial Cells Urine Creatinine Active Medications Generic Name Dose Route Start Last Admin Trade Name Freq PRN Reason Stop Dose Admin Acetaminophen 650 mg 01/17/17 22:33 Tylenol - PO Q4H PRN FEVER OR PAIN Albuterol Sulfate 1 amp 01/17/17 22:33 Ventolin 0.083% Nebulizer Soln - NEB Q4H PRN SHORT OF BREATH/WHEEZING Bisacodyl 10 mg 01/17/17 22:33 Dulcolax Suppository - RC PRN PRN CONSTIPATION Chlorhexidine Gluconate 1 applic 01/18/17 22:00 Hibiclens For Decolonization - TP HS MALIK Ferrous Sulfate 325 mg 01/18/17 10:00 01/18/17 09:20 Feosol - PO 325 mg BID MALIK Administration Heparin Sodium (Porcine) 5,000 unit 01/18/17 06:00 01/18/17 05:40 Heparin - SQ 5,000 unit TID MALIK Administration Ibuprofen 600 mg 01/17/17 22:33 Motrin - PO Q4H PRN PAIN Insulin Aspart 1 vial 01/17/17 23:15 01/18/17 06:05 Novolog Vial Sliding Scale - SQ Not Given ACHS [facility] Protocol Methylergonovine Maleate 0.2 mg 01/17/17 22:33 Methergine Injection - IM Q4H PRN Excessive Bleeding (L&D) Mupirocin 1 applic 01/18/17 10:00 Bactroban Ointment (For Decolonization) - NS 01/23/17 09:59 BID MALIK Ondansetron HCl 4 mg 01/17/17 22:33 Zofran Injection IVPB Q4H PRN NAUSEA AND/OR VOMITING Oxycodone HCl 5 mg 01/17/17 22:33 01/18/17 01:14 Roxicodone - PO 5 mg Q4H PRN Administration PAIN LEVEL 1-5 Oxycodone HCl 10 mg 01/17/17 22:33 01/18/17 05:38 Roxicodone - PO 10 mg Q4H PRN Administration PAIN LEVEL 6-10 Piperacillin Sod/Tazobactam Sod 4.5 gm 01/17/17 21:30 01/18/17 09:15 Zosyn 4.5gm Ivpb (Pre-Docked) IVPB 4.5 gm Q8H-IV MALIK Administration Multivit/Folic Acid/Iron 1 tab 01/18/17 10:00 01/18/17 09:16 Vitamins (Sjr) - PO 1 tab DAILY [facility] Administration Ranitidine HCl 150 mg 01/18/17 10:00 01/18/17 09:20 Zantac - PO 150 mg BID MALIK Administration Senna/Docusate Sodium 2 tablet 01/17/17 22:33 Pericolace - PO HS PRN CONSTIPATION Simethicone 80 mg 01/17/17 22:33 Mylicon - PO Q4H PRN GAS ASSESSMENT/PLAN: This is a 26 year old F with PMH of asthma, cholelithiasis, POD 4 s/p c section complicated by hemorrhage (which required 2 units of PRBCs), who developed respiratory distress at 5pm yesterday. Pt consulted by medical team for shortness of breath. 1. Shortness of breath -PE unlikely, as pt improved with lasix 40 mg IV diuresis -CXR and chest CT: bilateral pleural effusions -waiting for Echo results 2. Acute cholecystitis -Surgery consulted (Dr. Huynh) -Ranitidine 150 mg PO BID -Zosyn, awaiting ID consult 3. hypertension likely from volume expansion- improved Recommendations from nephrology: -BP improved today from Lasix -Continue to monitor BP -May need Nifedipine if BP remains above goal of 140/90 -Low salt diet -Trend BP -Repeat urine studies 3. Chorioamnionitis -Zosyn, discuss with ID -Pain control: oxycodone 5mg PO q4hr PRN pain 1-5 -Oxycodone 10mg PO q4hr PRN pain 6-10 4. DVT prophylaxis -Heparin drip Visit type - Emergency Visit Emergency Visit: No - New Patient This patient is new to me today: Yes Date on this admission: 01/18/17 - Critical Care Critical Care patient: Yes Total Critical Care Time (in minutes): 10 - Discharge Referral Referred to [facility] Med [facility] No
--- NOTE | 2017-01-18 14:13 | PN ---
Physical Exam: SUBJECTIVE: Patient seen and examined at bedside in ICU. Pt states she is breathing and feeling better. She denies CP, palpitations, light-headedness, SOB , calf tenderness. She has some pain in her abd at site. Pt was POD3 and brought to ICU due to respiratory distress, tachypnea, low- grade fever, and hypoxia on RA. Currently saturating well on RA, not tachycardic , improved tachypnea, and no fevers. OBJECTIVE: Vital Signs Temperature 97.8 F 01/18/17 10:00 Pulse Rate 66 01/18/17 12:00 Respiratory Rate 18 01/18/17 12:00 Blood Pressure 128/92 01/18/17 12:00 O2 Sat by Pulse Oximetry (%) 98 01/18/17 09:00 GENERAL: The patient is awake, alert, and fully oriented, in no acute distress. HEAD: Normal with no signs of trauma. EYES: extraocular movements intact, sclera anicteric, conjunctiva clear. ENT: Ears normal, nares patent NECK: Trachea midline, full range of motion, supple. LUNGS: breath sounds not audible in b/l mid to lower lung rayo. HEART: Regular rate and rhythm, S1, S2, +systolic murmur 2/6 best heard in tricuspid area. ABDOMEN: Soft, some tenderness around area, nondistended, normoactive bowel sounds, no guarding, no rebound, no hepatosplenomegaly, no masses. EXTREMITIES: 2+ pulses, warm, well-perfused, 1+ pitting edema b/l LE NEUROLOGICAL: Cranial nerves II through XII grossly intact. Normal speech, gait not observed. PSYCH: Normal mood, normal affect. SKIN: Warm, dry Laboratory Results - last 24 hr 01/17/17 01/17/17 01/17/17 17:03 17:45 17:45 WBC 15.5 H RBC 3.64 Hgb 8.3 L Hct 26.7 L MCV 73.3 L MCH 22.7 L MCHC 31.0 L RDW 20.3 H Plt Count No Result Required. MPV 9.6 Neutrophils % 79.7 Lymphocytes % 12.2 Monocytes % 7.2 Eosinophils % 0.8 Basophils % 0.1 Platelet Comment Mod plt clumping Hypochromic-Microcytic 1+ Anisocytosis 1+ ESR Puncture Site ABG pH ABG pCO2 at Pt Temp ABG pO2 at Pt Temp ABG HCO3 ABG O2 Sat (Measured) ABG O2 Content ABG Base Excess Jeremiah Test O2 Delivery Device Oxygen Flow Rate PEEP Sodium 140 Potassium 4.2 Chloride 110 H Carbon Dioxide 20 L Anion Gap 10 BUN 8 D Creatinine 0.5 L Creat Clearance w eGFR > 60 POC Glucometer 108 Random Glucose 126 H D Lactic Acid Calcium 7.5 L Phosphorus Magnesium 1.7 L Total Bilirubin 0.3 D AST 45 H ALT 27 D Alkaline Phosphatase 228 H LD Total 204 Troponin I B-Natriuretic Peptide Total Protein 5.2 L Albumin 1.9 L Lipase Urine Color Urine Appearance Urine pH Ur Specific Bagley Urine Protein Urine Glucose (UA) Urine Ketones Urine Blood Urine Nitrite Urine Bilirubin Urine Urobilinogen Ur Leukocyte Esterase Urine RBC Urine WBC Ur Epithelial Cells Urine Creatinine 01/17/17 01/17/17 01/17/17 17:45 17:45 17:45 WBC RBC Hgb Hct MCV MCH MCHC RDW Plt Count MPV Neutrophils % Lymphocytes % Monocytes % Eosinophils % Basophils % Platelet Comment Hypochromic-Microcytic Anisocytosis ESR 65 H Puncture Site ABG pH ABG pCO2 at Pt Temp ABG pO2 at Pt Temp ABG HCO3 ABG O2 Sat (Measured) ABG O2 Content ABG Base Excess Jeremiah Test O2 Delivery Device Oxygen Flow Rate PEEP Sodium Potassium Chloride Carbon Dioxide Anion Gap BUN Creatinine Creat Clearance w eGFR POC Glucometer Random Glucose Lactic Acid 1.6 Calcium Phosphorus Magnesium Total Bilirubin AST ALT Alkaline Phosphatase LD Total Cancelled Troponin I B-Natriuretic Peptide Total Protein Albumin Lipase Urine Color Urine Appearance Urine pH Ur Specific Bag[place] Urine Protein Urine Glucose (UA) Urine Ketones Urine Blood Urine Nitrite Urine Bilirubin Urine Urobilinogen Ur Leukocyte Esterase Urine RBC Urine WBC Ur Epithelial Cells Urine Creatinine 01/17/17 01/17/17 01/17/17 18:50 19:00 20:00 WBC RBC Hgb Hct MCV MCH MCHC RDW Plt Count MPV Neutrophils % Lymphocytes % Monocytes % Eosinophils % Basophils % Platelet Comment Hypochromic-Microcytic Anisocytosis ESR Puncture Site Left radial ABG pH 7.39 ABG pCO2 at Pt Temp 29.6 L D ABG pO2 at Pt Temp 61.3 L D ABG HCO3 17.7 L ABG O2 Sat (Measured) 89.7 L ABG O2 Content 10.4 L ABG Base Excess -5.9 L Jeremiah Test Positive O2 Delivery Device Nasal Oxygen Flow Rate 4l PEEP 0.0 Sodium Potassium Chloride Carbon Dioxide Anion Gap BUN Creatinine Creat Clearance w eGFR POC Glucometer Random Glucose Lactic Acid Calcium Phosphorus Magnesium Total Bilirubin AST ALT Alkaline Phosphatase LD Total Troponin I 0.02 B-Natriuretic Peptide Total Protein Albumin Lipase 47 L Urine Color Urine Appearance Urine pH Ur Specific [place] Urine Protein Urine Glucose (UA) Urine Ketones Urine Blood Urine Nitrite Urine Bilirubin Urine Urobilinogen Ur Leukocyte Esterase Urine RBC Urine WBC Ur Epithelial Cells Urine Creatinine 01/17/17 01/17/17 01/17/17 21:30 21:30 22:00 WBC RBC Hgb Hct MCV MCH MCHC RDW Plt Count MPV Neutrophils % Lymphocytes % Monocytes % Eosinophils % Basophils % Platelet Comment Hypochromic-Microcytic Anisocytosis ESR Puncture Site ABG pH ABG pCO2 at Pt Temp ABG pO2 at Pt Temp ABG HCO3 ABG O2 Sat (Measured) ABG O2 Content ABG Base Excess Jeremiah Test O2 Delivery Device Oxygen Flow Rate PEEP Sodium Potassium Chloride Carbon Dioxide Anion Gap BUN Creatinine Creat Clearance w eGFR POC Glucometer Random Glucose Lactic Acid 2.0 Calcium Phosphorus Magnesium Total Bilirubin AST ALT Alkaline Phosphatase LD Total Troponin I B-Natriuretic Peptide 3289.73 H Total Protein Albumin Lipase Urine Color Colorless Urine Appearance Clear Urine pH 6.0 Ur Specific [place]ley 1.010 Urine Protein Negative Urine Glucose (UA) Negative Urine Ketones Negative Urine Blood 3+ H Urine Nitrite Negative Urine Bilirubin Negative Urine Urobilinogen Negative Ur Leukocyte Esterase Trace H Urine RBC 29 Urine WBC 9 Ur Epithelial Cells Rare Urine Creatinine 01/17/17 01/17/17 01/17/17 22:00 22:00 23:25 WBC RBC Hgb Hct MCV MCH MCHC RDW Plt Count MPV Neutrophils % Lymphocytes % Monocytes % Eosinophils % Basophils % Platelet Comment Hypochromic-Microcytic Anisocytosis ESR Puncture Site ABG pH ABG pCO2 at Pt Temp ABG pO2 at Pt Temp ABG HCO3 ABG O2 Sat (Measured) ABG O2 Content ABG Base Excess Jeremiah Test O2 Delivery Device Oxygen Flow Rate PEEP Sodium Potassium Chloride Carbon Dioxide Anion Gap BUN Creatinine Creat Clearance w eGFR POC Glucometer 111.67551 Random Glucose Lactic Acid Calcium Phosphorus Magnesium Total Bilirubin AST ALT Alkaline Phosphatase LD Total Troponin I B-Natriuretic Peptide Total Protein Albumin Lipase Urine Color Urine Appearance Urine pH Ur Specific [place] Urine Protein 6 Urine Glucose (UA) Urine Ketones Urine Blood Urine Nitrite Urine Bilirubin Urine Urobilinogen Ur Leukocyte Esterase Urine RBC Urine WBC Ur Epithelial Cells Urine Creatinine < 13.0 L 01/18/17 01/18/17 01/18/17 05:10 05:10 05:34 WBC 17.6 H RBC 3.94 Hgb 9.0 L Hct 28.3 L MCV 71.8 L MCH 22.8 L MCHC 31.8 L RDW 21.1 H Plt Count MPV Neutrophils % 75.1 Lymphocytes % 13.6 Monocytes % 9.8 Eosinophils % 1.0 Basophils % 0.5 D Platelet Comment Hypochromic-Microcytic Anisocytosis ESR Puncture Site ABG pH ABG pCO2 at Pt Temp ABG pO2 at Pt Temp ABG HCO3 ABG O2 Sat (Measured) ABG O2 Content ABG Base Excess Jeremiah Test O2 Delivery Device Oxygen Flow Rate PEEP Sodium 139 Potassium 3.7 Chloride 104 Carbon Dioxide 26 D Anion Gap 9 BUN 6 L D Creatinine 0.7 D Creat Clearance w eGFR > 60 POC Glucometer 113.52434 Random Glucose 84 D Lactic Acid Calcium 7.5 L Phosphorus 4.5 Magnesium 1.9 Total Bilirubin 0.6 D AST 39 H ALT 30 Alkaline Phosphatase 226 H LD Total Troponin I B-Natriuretic Peptide Total Protein 5.4 L Albumin 2.0 L Lipase Urine Color Urine Appearance Urine pH Ur Specific Bagley Urine Protein Urine Glucose (UA) Urine Ketones Urine Blood Urine Nitrite Urine Bilirubin Urine Urobilinogen Ur Leukocyte Esterase Urine RBC Urine WBC Ur Epithelial Cells Urine Creatinine Active Medications Generic Name Dose Route Start Last Admin Trade Name Freq PRN Reason Stop Dose Admin Acetaminophen 650 mg 01/17/17 22:33 Tylenol - PO Q4H PRN FEVER OR PAIN Albuterol Sulfate 1 amp 01/17/17 22:33 Ventolin 0.083% Nebulizer Soln - NEB Q4H PRN SHORT OF BREATH/WHEEZING Bisacodyl 10 mg 01/17/17 22:33 Dulcolax Suppository - RC PRN PRN CONSTIPATION Chlorhexidine Gluconate 1 applic 01/18/17 22:00 Hibiclens For Decolonization - TP HS MALIK Ferrous Sulfate 325 mg 01/18/17 10:00 01/18/17 09:20 Feosol - PO 325 mg BID MALIK Administration Heparin Sodium (Porcine) 5,000 unit 01/18/17 06:00 01/18/17 05:40 Heparin - SQ 5,000 unit TID MALIK Administration Ibuprofen 600 mg 01/17/17 22:33 Motrin - PO Q4H PRN PAIN Insulin Aspart 1 vial 01/17/17 23:15 01/18/17 06:05 Novolog Vial Sliding Scale - SQ Not Given ACHS [facility] Protocol Methylergonovine Maleate 0.2 mg 01/17/17 22:33 Methergine Injection - IM Q4H PRN Excessive Bleeding (L&D) Mupirocin 1 applic 01/18/17 10:00 Bactroban Ointment (For Decolonization) - NS 01/23/17 09:59 BID [facility] Ondansetron HCl 4 mg 01/17/17 22:33 Zofran Injection IVPB Q4H PRN NAUSEA AND/OR VOMITING Oxycodone HCl 5 mg 01/17/17 22:33 01/18/17 01:14 Roxicodone - PO 5 mg Q4H PRN Administration PAIN LEVEL 1-5 Oxycodone HCl 10 mg 01/17/17 22:33 01/18/17 05:38 Roxicodone - PO 10 mg Q4H PRN Administration PAIN LEVEL 6-10 Piperacillin Sod/Tazobactam Sod 4.5 gm 01/17/17 21:30 01/18/17 09:15 Zosyn 4.5gm Ivpb (Pre-Docked) IVPB 4.5 gm Q8H-IV MALIK Administration Multivit/Folic Acid/Iron 1 tab 01/18/17 10:00 01/18/17 09:16 Vitamins (Sjr) - PO 1 tab DAILY MALIK Administration Ranitidine HCl 150 mg 01/18/17 10:00 01/18/17 09:20 Zantac - PO 150 mg BID MALIK Administration Senna/Docusate Sodium 2 tablet 01/17/17 22:33 Pericolace - PO HS PRN CONSTIPATION Simethicone 80 mg 01/17/17 22:33 Mylicon - PO Q4H PRN GAS ASSESSMENT/PLAN: 26 y/o F with PMH of cholelithiasis, asthma, HTN and gestational diabetes admitted to ICU due to respiratory distress s/p . Neuro Mental status intact Pulm SOB secondary to fluid overload -Clinical impression for PE is low at this time as pt is responsive to lasix treatment, no longer tachy, no longer w/fever, in no acute distress, no chest pain, tachypnea improving, saturating well on RA (in mid to high 90s) -pt is s/p 2 units PRBCs and IVF -CXR and chest CT both show b/l mod/large pleural effusion -lasix IV 40 mg IV once given earlier today -will give another dose of IV lasix 40 mg today -f/u CXR -f/u ECHO, echo done today, awaiting read -O2 supplementation to keep saturation above 90% -monitor I/Os, to keep pt in net negative Pigment Presser s/p , post -pain control with oxycodone 5 mg po q4h prn pain 1-5, 10 mg po q4h prn pain 6-10 -IV tylenol 1 g once given earlier this AM with good response GI Cholelithiasis with cholecystitis -surgery on board -regular diet or diet as tolerated at this time -ranitidine 150 mg po bid -zosyn Cardio New onset murmur -f/u ECHO FEN -no fluids at this time -monitor electrolytes, replete as needed -regular diet or diet as tolerated Dispo -will monitor in ICU tonight, if pt continues to improve will likely be able to be transferred back to L&D Problem List - Problems (1) Cholelithiasis Code(s): K80.20 - CALCULUS OF GALLBLADDER W/O CHOLECYSTITIS W/O OBSTRUCTION (2) Fluid overload Code(s): E87.70 - FLUID OVERLOAD, UNSPECIFIED (3) Abdominal pain Code(s): R10.9 - UNSPECIFIED ABDOMINAL PAIN (4) SOB (shortness of breath) Code(s): R06.02 - SHORTNESS OF BREATH Visit type - Emergency Visit Emergency Visit: Yes ED Registration Date: 01/14/17 Care time: The patient presented to the Emergency Department on the above date and was hospitalized for further evaluation of their emergent condition. - New Patient This patient is new to me today: Yes Date on this admission: 01/18/17 - Critical Care Critical Care patient: Yes Total Critical Care Time (in minutes): 35 Critical Care Statement: The care of this patient involved high complexity decision making to prevent further life threatening deterioration of the patient 's condition and/or to evalute & treat vital organ system(s) failure or risk of failure.
[2017-01-18] MEDS: MUPIROCIN 2% TOPICAL OINTMENT FOR DECOLONIZATION NS SCH ×2 (14:52→22:06)
--- NOTE | 2017-01-18 15:24 | CONSULT ---
- Consultation REQUESTING PROVIDER: Dr. Huynh CONSULT REQUEST: We have been asked to surgically evaluate this patient for cholelithiasis. PCP:Kristel Kaur HISTORY OF PRESENT ILLNESS:The patient is a 26 yo female POD#4 from c section. She has a history of gall stones and had several attacks during her , her last one on 01/05/17 and was treated with IV ampicillin and oral augmentin as an outpt. She presented to the hospital in early labor, had failure to progress and she had c section. She developed some hypoxia and was transferred to the ICU. Currently she has no abd pain, is eating ice. No nausea or emesis and had a bowel movement yesterday. PMHx: asthma, anemia, gestational diabetes/HTN PSHx: denies. Home Medications Medication Instructions Recorded Glyburide/Metformin HCl 2.5 mg PO BID 12/30/16 [Glyburide-Metformin 2.5-500 mg] Albuterol Sulfate Inhaler - 1 puff IH Q4H PRN 01/13/17 [Ventolin Hfa Inhaler -] Vitamins (Sjr) - 1 tab PO DAILY 01/13/17 Allergies Allergy/AdvReac Type Severity Reaction Status Date / Time No Known Allergies Allergy Verified 01/14/17 06:51 REVIEW OF SYSTEMS: CONSTITUTIONAL: Absent: fever, chills CARDIOVASCULAR: Present: palpitations, peripheral edema RESPIRATORY: Present: shortness of breath(improved), wheezing GASTROINTESTINAL: Absent: abdominal pain, nausea, vomiting GENITOURINARY: Absent: dysuria, hematuria MUSCULOSKELETAL: Absent: myalgia, arthralgia, joint swelling, back pain, neck pain HEMATOLOGIC/IMMUNOLOGIC: Absent: easy bleeding, easy bruising NEUROLOGIC: Absent: headache, seizure PSYCHIATRIC: Present: anxiety(history) Absent: depression PHYSICAL EXAM: GENERAL: Awake, alert, and fully oriented, in no acute distress. HEAD: Normal with no signs of trauma. EYES: sclera anicteric, conjunctiva clear. NECK: Normal ROM, supple LUNGS: Clear to auscultation bilat anteriorly. No wheezes, and no crackles. No accessory muscle use. HEART: Regular rate and rhythm. No murmurs ABDOMEN: Soft, nontender, not distended, normoactive bowel sounds, mild RUQ tenderness with deep palpation. NO rebound or guarding. no erythema or drainge noted from lower abd incision. martin intact MUSCULOSKELETAL: Normal ROM at all joints. No bony deformities or tenderness. No CVA tenderness. UPPER EXTREMITIES: 2+ pulses, warm, well-perfused. No cyanosis. Cap refill <2 seconds. No peripheral edema. LOWER EXTREMITIES: 2+ pulses, warm, well-perfused. No calf tenderness. +1 pitting edmea b/l NEUROLOGICAL: Normal speech. 5/5 dorsi/plantar flexion b/l. PSYCH: Cooperative. Good eye contact. Appropriate mood and affect. SKIN: Warm, dry, normal turgor Vital Signs Temperature 97.8 F 01/18/17 10:00 Pulse Rate 66 01/18/17 14:00 Respiratory Rate 18 01/18/17 14:00 Blood Pressure 139/93 01/18/17 14:00 O2 Sat by Pulse Oximetry (%) 98 01/18/17 09:00 Lab Results WBC 17.6 K/mm3 (4.0-10.0) H 01/18/17 05:10 RBC 3.94 M/mm3 (3.60-5.2) 01/18/17 05:10 Hgb 9.0 GM/dL (10.7-15.3) L 01/18/17 05:10 Hct 28.3 % (32.4-45.2) L 01/18/17 05:10 MCV 71.8 fl (80-96) L 01/18/17 05:10 MCHC 31.8 g/dl (32.0-36.0) L 01/18/17 05:10 RDW 21.1 % (11.6-15.6) H 01/18/17 05:10 Plt Count K/MM3 (134-434) 01/18/17 05:10 Sodium 139 mmol/L (136-145) 01/18/17 05:10 Potassium 3.7 mmol/L (3.5-5.1) 01/18/17 05:10 Chloride 104 mmol/L (98-107) 01/18/17 05:10 Carbon Dioxide 26 mmol/L (21-32) D 01/18/17 05:10 Anion Gap 9 (8-16) 01/18/17 05:10 BUN 6 mg/dL (7-18) L D 01/18/17 05:10 Creatinine 0.7 mg/dL (0.55-1.02) D 01/18/17 05:10 Random Glucose 84 mg/dL (74-106) D 01/18/17 05:10 Calcium 7.5 mg/dL (8.5-10.1) L 01/18/17 05:10 Blood Type O POSITIVE 01/14/17 05:45 Antibody Screen Negative 01/14/17 05:45 INR 0.95 (0.82-1.09) 01/14/17 05:45 Microbiology 01/15/17 10:35 Blood - Peripheral Venous Blood Culture - Preliminary NO GROWTH OBTAINED AFTER 72 HOURS, INCUBATION TO CONTINUE FOR 2 DAYS. 01/15/17 02:25 Blood - Peripheral Venous Blood Culture - Preliminary NO GROWTH OBTAINED AFTER 72 HOURS, INCUBATION TO CONTINUE FOR [address] scan abd/pelvis 01/17: no bowel dilatation. Positive pericholecystic fluid Vascular study 01/17: no evidnece of DVT b/l CXR: 01/17: b/l pleural effusion US: 01/17: no CBD duct dilatation, GB wall thickening with trace of fluid Problem List - Problems (1) Cholelithiasis Assessment/Plan: Pt with cholelithiasis and known history of biliary colic, now with ? acute thad D/w Dr. Huynh and will attempt trial of clears, pt with leukocytosis but remains afebrile. Currently receiving IV zosyn after being treated with unasyn/ gent/flagyl. Cultures are negative to date. Will plan for elective cholecystectomy after pt recovers from c section, currently she is still being treated for her post-op hypoxia with IV lasix, supplemental oxygen, incentive spirometer. IF unable to tolerate a diet, increase in upper abd pain, persistant leukocytosis a HIDA scan could be obtained. Will continue to follow the patient. Code(s): K80.20 - CALCULUS OF GALLBLADDER W/O CHOLECYSTITIS W/O OBSTRUCTION Visit type - Case Type Case Type: ED Admission - Emergency Emergency Visit: Yes ED Registration Date: 01/14/17 Care time: The patient presented to the Emergency Department on the above date and was hospitalized for further evaluation of their emergent condition. - New patient This patient is new to me today: Yes Date on this admission: 01/18/17 - Critical Care Critical Care patient: No
[2017-01-18 15:54] VITALS: BMI 26.0
--- NOTE | 2017-01-18 15:54 | CON.NEP ---
Consult Consult Specialty:: Nephrology (Florin/Lazaro) Referred by:: Dr. Ngo Reason for Consultation:: Hypertension - History of Present Illness Chief Complaint: High BP History of Present Illness: 26 year old woman with PMhx of Asthma s/p C-scetion after her first complicated by Cholecystitis with SOB/volume overload and Hypertension following delivery. Pt states that her BP was high during the pregancy but was not on BP meds. - History Source History Provided By: Patient, Family Member Limitations to Obtaining History: Language Barrier - Past Medical History STATE MANAGER: No: Migraine, Seizure Cardio/Vascular: Yes: Other (palpitations). No: HTN Pulmonary: Yes: Asthma (rx inhaler prn) Hepatobiliary: Yes: Cholelithiasis, Cholecystitis (rx iv ancef , iv ampicillin followed by po amoxcilin) Renal/: Yes: UTI ...LMP: 03/20/16 Infectious Disease: No: AIDS, HIV, STD's Psych: Yes: Anxiety Endocrine: Yes: Other (GDM rx po glyburide 2.5 mg bid & diet controlled) - Past Surgical History Past Surgical History: Yes: None - Alcohol/Substance Use Hx Alcohol Use: No History of Substance Use: reports: None - Smoking History Smoking history: Never smoked Have you smoked in the past 12 months: No Home Medications - Allergies Allergies/Adverse Reactions: Allergies Allergy/AdvReac Type Severity Reaction Status Date / Time No Known Allergies Allergy Verified 01/14/17 06:51 - Home Medications Home Medications: Ambulatory Orders Glyburide/Metformin HCl [Glyburide-Metformin 2.5-500 mg] 2.5 mg PO BID 12/30/16 Albuterol Sulfate Inhaler - [Ventolin Hfa Inhaler -] 1 puff IH Q4H PRN 01/13/17 Vitamins (Sjr) - 1 tab PO DAILY 01/13/17 Review of Systems - Review of Systems Constitutional: reports: No Symptoms Eyes: reports: No Symptoms HENT: reports: No Symptoms Neck: reports: No Symptoms Cardiovascular: reports: Edema, Shortness of Breath. denies: Chest Pain, Palpitations Respiratory: reports: SOB, SOB on Exertion. denies: Cough, Exercise Intolerance Gastrointestinal: reports: No Symptoms Genitourinary: reports: No Symptoms Musculoskeletal: reports: No Symptoms Integumentary: reports: No Symptoms Nephrology Consult - Height Height: 5 ft 4 in - Weight Weight: 151 lb 9 oz - BMI Body Mass Index (BMI): 26.0 - Lab Results CBC,BMP: CBC, BMP 01/18/17 05:10 01/18/17 05:10 Anion Gap: Anion Gap Anion Gap 9 (8-16) 01/18/17 05:10 - Imaging Chest X-ray: Report Reviewed - Physical Examination Vital Signs: Vital Signs Temperature 97.8 F 01/18/17 10:00 Pulse Rate 66 01/18/17 14:00 Respiratory Rate 18 01/18/17 14:00 Blood Pressure 139/93 01/18/17 14:00 O2 Sat by Pulse Oximetry (%) 98 01/18/17 09:00 Constitutional: Yes: Well Nourished, No Distress, Calm HENT: Yes: Atraumatic, Normocephalic Neck: Yes: Supple Cardiovascular: Yes: Regular Rate and Rhythm, S1, S2. No: Murmur, Rub Respiratory: Yes: Regular, Diminished Gastrointestinal: Yes: Normal Bowel Sounds, Soft Edema: Yes Edema: LLE: 1+, RLE: 1+ Assessment/Plan 26 year old woman with PMhx of Asthma s/p C-scetion after her first complicated by Cholecystitis with SOB/volume overload and Hypertension following delivery. # Hypertension likely due to volume expansion +/- pregancy induced hypertension w/o evidence of preeclampsia or HELLP syndrome BP is improved today s/p diuresis continue to montior BP for now would not use beta ina given hx of asthma pt may need CCB (i.e. Nifedipine) if bp remains above ga[place] of 140/90 low salt diet trend BP repeat urine studies #SOB/Volume Overload ICU monitoring Gene Willis DO
--- NOTE | 2017-01-18 16:48 | CONSULT ---
Consult Consult Specialty:: infectious diseases Reason for Consultation:: cholecystitis - History of Present Illness Chief Complaint: abd pain History of Present Illness: 26yow with PMHx of asthma n post caesarian section for full term gestational diabetes and chorioamnionitis in setting of prolonged labor requiring cesarian section delivery. Post -op she was transfused 2U PRBC for hgb 6.8 patient lost 600 cc during the delivery . 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 No: HTN Pulmonary: Yes: Asthma (rx inhaler prn) Hepatobiliary: Yes: Cholelithiasis, Cholecystitis (rx iv ancef , iv ampicillin followed by po amoxcilin) Renal/: Yes: UTI ...LMP: 03/20/16 Infectious Disease: No: AIDS, HIV, STD's Psych: Yes: Anxiety Endocrine: Yes: Other (GDM rx po glyburide 2.5 mg bid & diet controlled) - Past Surgical History Past Surgical History: Yes: None - Alcohol/Substance Use Hx Alcohol Use: No History of Substance Use: reports: None - Smoking History Smoking history: Never smoked Have you smoked in the past 12 months: No Home Medications - Allergies Allergies/Adverse Reactions: Allergies Allergy/AdvReac Type Severity Reaction Status Date / Time No Known Allergies Allergy Verified 01/14/17 06:51 - Home Medications Home Medications: Ambulatory Orders Glyburide/Metformin HCl [Glyburide-Metformin 2.5-500 mg] 2.5 mg PO BID 12/30/16 Albuterol Sulfate Inhaler - [Ventolin Hfa Inhaler -] 1 puff IH Q4H PRN 01/13/17 Vitamins (Sjr) - 1 tab PO DAILY 01/13/17 Review of Systems - Review of Systems Constitutional: reports: Other Eyes: reports: No Symptoms HENT: reports: No Symptoms Neck: reports: No Symptoms Cardiovascular: reports: No Symptoms Respiratory: reports: SOB Gastrointestinal: reports: Abdominal Pain Genitourinary: reports: No Symptoms Musculoskeletal: reports: No Symptoms Integumentary: reports: No Symptoms Neurological: reports: No Symptoms Hematology/Lymphatic: reports: No Symptoms Psychiatric: reports: No Symptoms Physical Exam Vital Signs: Vital Signs Temperature 98.2 F 01/18/17 16:00 Pulse Rate 64 01/18/17 16:00 Respiratory Rate 18 01/18/17 16:00 Blood Pressure 139/88 01/18/17 16:00 O2 Sat by Pulse Oximetry (%) 98 01/18/17 09:00 Constitutional: Yes: No Distress, Calm Cardiovascular: Yes: Regular Rate and Rhythm Respiratory: Yes: Regular, CTA Bilaterally Gastrointestinal: Yes: Normal Bowel Sounds, Soft, Tenderness (ruq,mid line) Musculoskeletal: Yes: WNL Extremities: Yes: WNL Neurological: Yes: Alert, Oriented Psychiatric: Yes: Alert Labs: CBC, BMP 01/18/17 05:10 01/18/17 05:10 Imaging - Results Chest X-ray: Report Reviewed, Image Reviewed Cat Scan: Report Reviewed, Image Reviewed Ultrasound: Report Reviewed, Image Reviewed Assessment/Plan patient currently stable post c section cardiomyopathy ac blood loss ac choleycystitis hypoxia pleural effusion leukocytosis plan continue current abx monitor abd pain monitor wbc monitor vitals and parameters rest as per icu cc time 45 min
--- NOTE | 2017-01-18 19:34 | PN ---
Post Progress Note - Subjective Subjective: pt in icu sob less than yesterday . pt ate food from outside, c/o pain in upper abdomen after eating, no vomiting . voiding large amount of urine Type of Delivery: Primary C/S Vital Signs: Vital Signs Temperature 98.2 F 01/18/17 16:00 Pulse Rate 72 01/18/17 18:00 Respiratory Rate 22 01/18/17 18:00 Blood Pressure 138/88 01/18/17 18:00 O2 Sat by Pulse Oximetry (%) 98 01/18/17 09:00 Selected Entries 01/18/17 01/18/17 01/18/17 05:00 12:00 14:00 Temperature Blood Pressure 143/98 128/92 139/93 01/18/17 16:00 Temperature 98.2 F Blood Pressure 139/88 Breast Exam: Yes: Soft, Other (not bf ). No: Engorged Uterus: Yes: Fundus Firm, Fundus below umbilicus, Non-tender Incision: Yes: Martin intact. No: Redness, Oozing Abdomen/GI: Yes: Abdomen soft, Passing flatus, Tolerating PO (diet , depends what she eats ). No: Abdominal Distention (bs active ), Tender (no upper abd or RUQ tenderness ) Lochia: Yes: Rubra Lochia, amount: Small Extremities: Yes: Calves non-tender, Edema (lower extremities less than yesterday ) Perineum: Yes: Intact Activity: Ambulating - Labs Labs: CBC WBC 17.6 K/mm3 (4.0-10.0) H 01/18/17 05:10 RBC 3.94 M/mm3 (3.60-5.2) 01/18/17 05:10 Hgb 9.0 GM/dL (10.7-15.3) L 01/18/17 05:10 Hct 28.3 % (32.4-45.2) L 01/18/17 05:10 MCV 71.8 fl (80-96) L 01/18/17 05:10 MCH 22.8 pg (25.7-33.7) L 01/18/17 05:10 MCHC 31.8 g/dl (32.0-36.0) L 01/18/17 05:10 RDW 21.1 % (11.6-15.6) H 01/18/17 05:10 Plt Count K/MM3 (134-434) 01/18/17 05:10 MPV 9.6 fl (7.5-11.1) 01/17/17 17:45 Neutrophils % 75.1 % (42.8-82.8) 01/18/17 05:10 Lymphocytes % 13.6 % (8-40) 01/18/17 05:10 Monocytes % 9.8 % (3.8-10.2) 01/18/17 05:10 Eosinophils % 1.0 % (0-4.5) 01/18/17 05:10 Basophils % 0.5 % (0-2.0) D 01/18/17 05:10 Band Neutrophils 8.0 % (0-10) 01/15/17 07:25 Nucleated RBCs 2 % (0-0) H 01/15/17 07:25 Differential Comment Manual diff done 01/15/17 07:25 Platelet Estimate Adequate (NORMAL) 01/17/17 06:40 Platelet Comment Mod plt clumping 01/17/17 17:45 Platelet Comment No clotting detected 01/14/17 05:45 Hypochromic-Microcytic 1+ 01/17/17 17:45 Anisocytosis 1+ 01/17/17 17:45 Microcytosis 1+ 01/14/17 05:45 Macrocytosis Few 01/14/17 05:45 Rouleaux 1+ 01/15/17 07:25 ESR 65 mm/hr (0-20) H 01/17/17 17:45 Laboratory Tests 01/17/17 01/17/17 01/17/17 05:46 11:14 17:03 Sodium Potassium Chloride Carbon Dioxide Anion Gap Creatinine POC Glucometer 77 112 108 Random Glucose Total Bilirubin AST ALT 01/17/17 01/18/17 01/18/17 23:25 05:10 05:34 Sodium 139 Potassium 3.7 Chloride 104 Carbon Dioxide 26 D Anion Gap 9 Creatinine 0.7 D POC Glucometer 111.07531 113.72005 Random Glucose 84 D Total Bilirubin 0.6 D AST 39 H ALT 30 Other Findings, Remarks: RS bilateral bases diminshed air entry, rales abd in mid segment . i/o reviewed . output -5850 ml Problem List - Problems (1) 38 to 41 weeks gestation of Code(s): [id number] - (2) Labor established Code(s): [id number] - (3) Anemia Code(s): D64.9 - ANEMIA, UNSPECIFIED Qualifiers: Anemia type: iron deficiency (4) Cholelithiasis Code(s): K80.20 - CALCULUS OF GALLBLADDER W/O CHOLECYSTITIS W/O OBSTRUCTION (5) Cholelithiasis affecting in third trimester, antepartum Code(s): O26.613 - LIVER AND BILIARY TRACT DISORD IN , THIRD TRIMESTER K80.20 - CALCULUS OF GALLBLADDER W/O CHOLECYSTITIS W/O OBSTRUCTION (6) Gestational diabetes mellitus (GDM) controlled on oral hypoglycemic drug Code(s): O24.415 - GESTATNL DIABETES IN PREG, CTRL BY ORAL HYPOGLYCEMIC DRUGS (7) Gestational diabetes mellitus (GDM) in second trimester controlled on oral hypoglycemic drug Code(s): O24.415 - GESTATNL DIABETES IN PREG, CTRL BY ORAL HYPOGLYCEMIC DRUGS (8) Gestational diabetes mellitus (GDM) in third trimester controlled on oral hypoglycemic drug Code(s): O24.415 - GESTATNL DIABETES IN PREG, CTRL BY ORAL HYPOGLYCEMIC DRUGS (9) Acute chorioamnionitis Code(s): O41.1290 - CHORIOAMNIONITIS, UNSP TRIMESTER, NOT APPLICABLE OR UNSP (10) Failure of descent in labor, delivered, current hospitalization Code(s): O62.2 - OTHER UTERINE INERTIA (11) Status post primary low transverse section Code(s): Z98.891 - HISTORY OF UTERINE SCAR FROM PREVIOUS SURGERY (12) Bilateral pleural effusion Code(s): J90 - PLEURAL EFFUSION, NOT ELSEWHERE CLASSIFIED Assessment/Plan s/p primary c/s day#4, , s/p ac chorioamnionitis, s/p 2 pack cell transfusion, Anemia, Elevated WBC, ,Bilateral Pleural effusion, improving , suspected ac cholecystitis with cholelithiasis , HTN post op secondary to probably fluid overload -improving on IV zosyn heparin , sq pain meds Dr Marie pulm consut Dr Willis, gu consultfor htn Dr Parrish ID consult , surgical consut appreciated Plan ct management encourage using incentive spirometry ambulation in room will remove martin tomorrow in AM
[2017-01-18] MEDS ORDERED: CHLORHEXIDINE GLUCONATE 4% CLEANSER FOR DECOLONIZATION TP SCH (22:00)
[2017-01-19] MEDS: PIPERACILLIN/TAZOB 4.5 GM/100 ML PRE-DOCKED IVPB SCH ×2 (01:58→09:12)
[2017-01-19] MEDS: oxyCODONE HCL 5 MG TABLET PO PRN (02:06)
[2017-01-19 06:10] LABS: BASOPHIL 0.3 % (0-2.0); MCH 22.7 pg (25.7-33.7); MCHC 31.2 g/dl (32.0-36.0); MEAN CELL VOLUME 72.6 fl (80-96); MEAN PLT VOLUME 8.9 fl (7.5-11.1); NEUTROPHILS 70.1 % (42.8-82.8); RDW 21.7 % (11.6-15.6); WHITE BLOOD COUNT 12.9 K/mm3 (4.0-10.0)
[2017-01-19] MEDS: INSULIN SLIDING SCALE (NOVOLOG) 1 VIAL SQ SCH ×4 (06:35→21:46)
[2017-01-19 06:46] LABS: ALBUMIN 1.9 g/dl (3.4-5.0); ANION GAP 10 (8-16); BILIRUBIN,TOTAL 0.7 mg/dL (0.2-1.0); CALCIUM 7.7 mg/dL (8.5-10.1); CO2 27 mmol/L (21-32); CREATININE 0.6 mg/dL (0.55-1.02); GLUCOSE,RANDOM 79 mg/dL (74-106); SGOT/AST 22 U/L (15-37); SGPT/ALT 22 U/L (12-78); TOT PROT 5.4 g/dl (6.4-8.2)
[2017-01-19 06:47] LABS: ALK PHOS 194 U/L (45-117)
--- NOTE | 2017-01-19 08:54 | PN ---
Progress Note (short form) - Note Progress Note: Attending Surgeon No c/o VSS AF O2 sat 95% on RA tolerated diet; no c/o pain abdomen-post ; no RUQ tenderness; o/w normal WBC down today; LFT's decreasing CXR-b/l pleural effusions persist IMP: resolving acute cholecystitis; concur w/ a/p as outlined by LUCHO yesterday PLAN: Continue IVAB's; low fat diet will plan for lap thad once pleural effusions resolve; will f/u. Giovanni Huynh MD FACS
[2017-01-19] MEDS ORDERED: PT OWN MED DRAWER 7, Y5N ONE (09:07)
[2017-01-19] MEDS: RANITIDINE HCL 150 MG TABLET (FP) PO SCH ×3 (09:12→21:55)
[2017-01-19] MEDS: PRENATAL VITAMINS W/ FOLIC ACID TABLET (FP) PO SCH (09:12)
[2017-01-19] MEDS: FERROUS SO4 325 MG TABLET (FP) PO SCH ×3 (09:12→21:54)
[2017-01-19] MEDS: MUPIROCIN 2% TOPICAL OINTMENT FOR DECOLONIZATION NS SCH (09:14)
[2017-01-19] MEDS ORDERED: FUROSEMIDE 40 MG/4 ML INJECTABLE VIAL IVPUSH SCH ×2 (10:00→16:00)
--- NOTE | 2017-01-19 10:24 | PN ---
Teaching Attending Note Name of Resident: Brianna Leon ATTENDING PHYSICIAN STATEMENT I saw and evaluated the patient. I reviewed the resident's note and discussed the case with the resident. I agree with the resident's findings and plan as documented. SUBJECTIVE:feels much better OBJECTIVE: Vital Signs Temperature 98.3 F 01/19/17 10:00 Pulse Rate 76 01/19/17 10:00 Respiratory Rate 22 01/19/17 10:00 Blood Pressure 132/76 01/19/17 10:00 O2 Sat by Pulse Oximetry (%) 98 01/18/17 21:00 exam reveals decreased air entry in b/l lower bases CBC, BMP 01/19/17 05:20 01/19/17 05:20 ASSESSMENT AND PLAN: 26 year old female 4 days post / c- section developed respiratory failure /hypoxia. Has b/l pleural effusions. 1. Hypoxia - improved -now O2 sat is 93 % on RA .Likely multifactorial, dep atelectasis due to RUQ pain, , fluid overload and HTN urgency - echo results are pending - I&O - diurese 40 IV BID of lasix 2. ACute cholecystitis - on IVAB for now. - lap thad when resp status is stable will follow closely
--- NOTE | 2017-01-19 10:54 | PN ---
Post Progress Note - Subjective Subjective: pain scale 5/10, mainly on lt side of incision . no c/o pain RUQ or epigastric pain voiding well Post Day: 5 Type of Delivery: Primary C/S Vital Signs: Vital Signs Temperature 98.3 F 01/19/17 10:00 Pulse Rate 76 01/19/17 10:00 Respiratory Rate 22 01/19/17 10:00 Blood Pressure 132/76 01/19/17 10:00 O2 Sat by Pulse Oximetry (%) 98 01/18/17 21:00 Breast Exam: Yes: Soft. No: Engorged Uterus: Yes: Fundus Firm, Fundus below umbilicus, Non-tender Incision: No: Martin intact (martin removed, wound healing satisfactory, edges well approximated steri strips applied ), Redness, Oozing Abdomen/GI: Yes: Abdomen soft, Passing flatus, Tolerating PO (diet ). No: Abdominal Distention, Tender (No tenderness in upper abdomen ) Lochia: Yes: Rubra Lochia, amount: Small Extremities: Yes: Calves non-tender, Edema (none inlowe extremities ) Perineum: Yes: Intact Activity: Ambulating (in room ) - Labs Labs: CBC WBC 12.9 K/mm3 (4.0-10.0) H 01/19/17 05:20 RBC 3.85 M/mm3 (3.60-5.2) 01/19/17 05:20 Hgb 8.7 GM/dL (10.7-15.3) L 01/19/17 05:20 Hct 28.0 % (32.4-45.2) L 01/19/17 05:20 MCV 72.6 fl (80-96) L 01/19/17 05:20 MCH 22.7 pg (25.7-33.7) L 01/19/17 05:20 MCHC 31.2 g/dl (32.0-36.0) L 01/19/17 05:20 RDW 21.7 % (11.6-15.6) H 01/19/17 05:20 Plt Count K/MM3 (134-434) 01/18/17 05:10 MPV 8.9 fl (7.5-11.1) 01/19/17 05:20 Neutrophils % 70.1 % (42.8-82.8) 01/19/17 05:20 Lymphocytes % 15.9 % (8-40) 01/19/17 05:20 Monocytes % 9.7 % (3.8-10.2) 01/19/17 05:20 Eosinophils % 4.0 % (0-4.5) D 01/19/17 05:20 Basophils % 0.3 % (0-2.0) 01/19/17 05:20 Band Neutrophils 8.0 % (0-10) 01/15/17 07:25 Nucleated RBCs 2 % (0-0) H 01/15/17 07:25 Differential Comment Manual diff done 01/15/17 07:25 Platelet Estimate Adequate (NORMAL) 01/17/17 06:40 Platelet Comment Mod plt clumping 01/17/17 17:45 Platelet Comment No clotting detected 01/14/17 05:45 Hypochromic-Microcytic 1+ 01/17/17 17:45 Anisocytosis 1+ 01/17/17 17:45 Microcytosis 1+ 01/14/17 05:45 Macrocytosis Few 01/14/17 05:45 Rouleaux 1+ 01/15/17 07:25 ESR 65 mm/hr (0-20) H 01/17/17 17:45 Laboratory Tests 01/19/17 05:20 Sodium 137 Potassium 3.9 Chloride 100 Carbon Dioxide 27 Anion Gap 10 BUN 9 D Creatinine 0.6 Random Glucose 79 AST 22 D ALT 22 D Other Findings, Remarks: RS bases still poor entry lt lung crepts in middle segment pt using incentive spirometer better , upto 1000 ml vol urine output documented yesterday 5850 ml Problem List - Problems (1) 38 to 41 weeks gestation of Code(s): [id number] - (2) Labor established Code(s): SGO9342 - (3) Anemia Code(s): D64.9 - ANEMIA, UNSPECIFIED Qualifiers: Anemia type: iron deficiency (4) Cholelithiasis Code(s): K80.20 - CALCULUS OF GALLBLADDER W/O CHOLECYSTITIS W/O OBSTRUCTION (5) Cholelithiasis affecting in third trimester, antepartum Code(s): O26.613 - LIVER AND BILIARY TRACT DISORD IN , THIRD TRIMESTER K80.20 - CALCULUS OF GALLBLADDER W/O CHOLECYSTITIS W/O OBSTRUCTION (6) Gestational diabetes mellitus (GDM) controlled on oral hypoglycemic drug Code(s): O24.415 - GESTATNL DIABETES IN PREG, CTRL BY ORAL HYPOGLYCEMIC DRUGS (7) Gestational diabetes mellitus (GDM) in second trimester controlled on oral hypoglycemic drug Code(s): O24.415 - GESTATNL DIABETES IN PREG, CTRL BY ORAL HYPOGLYCEMIC DRUGS (8) Gestational diabetes mellitus (GDM) in third trimester controlled on oral hypoglycemic drug Code(s): O24.415 - GESTATNL DIABETES IN PREG, CTRL BY ORAL HYPOGLYCEMIC DRUGS (9) Acute chorioamnionitis Code(s): O41.1290 - CHORIOAMNIONITIS, UNSP TRIMESTER, NOT APPLICABLE OR UNSP (10) Failure of descent in labor, delivered, current hospitalization Code(s): O62.2 - OTHER UTERINE INERTIA (11) Status post primary low transverse section Code(s): Z98.891 - HISTORY OF UTERINE SCAR FROM PREVIOUS SURGERY (12) Bilateral pleural effusion Code(s): J90 - PLEURAL EFFUSION, NOT ELSEWHERE CLASSIFIED Assessment/Plan ass,: pt s/p c/section day#5, s/p ac chorioamnionitis , Bilateral pleural effusion , improving anemia s/p 2 pack cell transfusion i dubt about ac cholecystitis Plan ct management Dr Frank son , will follow on the floor for pleural effusion encourage use of incentive spirometer,, ambulation
--- NOTE | 2017-01-19 10:55 | PN ---
Teaching Attending Note Name of Resident: Ty Mujica ATTENDING PHYSICIAN STATEMENT I saw and evaluated the patient. I reviewed the resident's note and discussed the case with the resident. I agree with the resident's findings and plan as documented. SUBJECTIVE: Pt seen and examined in the ICU. Breathing much improved today. Diuresed well with lasix yesterday. No fevers or chills. No nausea or vomiting. OBJECTIVE: Last Vital Signs Temp Pulse Resp BP Pulse Ox 98.3 F 76 22 132/76 98 01/19/17 10:00 01/19/17 10:00 01/19/17 10:00 01/19/17 10:00 01/18/17 21:00 Intake & Output 01/16/17 01/17/17 01/18/17 01/19/17 23:59 23:59 23:59 23:59 Intake Total 2240 1980 960 100 Output Total 500 3400 5850 Balance 1740 -1420 -4890 100 Weight 151 lb 9 oz 147 lb 7.828 oz Gen: less tachypneic Heart: RRR Lung: decreased breath sounds 1/4 way up Abd: soft, nontender Ext: edema resolving CBC, BMP 01/19/17 05:20 01/19/17 05:20 Active Medications Acetaminophen (Tylenol -) 650 mg PO Q4H PRN PRN Reason: FEVER OR PAIN Albuterol Sulfate (Ventolin 0.083% Nebulizer Soln -) 1 amp NEB Q4H PRN PRN Reason: SHORT OF BREATH/WHEEZING Bisacodyl (Dulcolax Suppository -) 10 mg RC PRN PRN PRN Reason: CONSTIPATION Chlorhexidine Gluconate (Hibiclens For Decolonization -) 1 applic TP HS [facility] Last Admin: 01/18/17 22:05 Dose: 1 applic Ferrous Sulfate (Feosol -) 325 mg PO BID [facility] Last Admin: 01/19/17 09:12 Dose: 325 mg Furosemide (Lasix Injection -) 40 mg IVPUSH BID@1000,1600 [facility] Last Admin: 01/19/17 10:46 Dose: 40 mg Heparin Sodium (Porcine) (Heparin -) 5,000 unit SQ TID [facility] Last Admin: 01/18/17 22:09 Dose: 5,000 unit Ibuprofen (Motrin -) 600 mg PO Q4H PRN PRN Reason: PAIN Last Admin: 01/19/17 05:19 Dose: 600 mg Insulin Aspart (Novolog Vial Sliding Scale -) 1 vial SQ ACHS [facility]IK PRN Reason: Protocol Last Admin: 01/19/17 10:52 Dose: Not Given Methylergonovine Maleate (Methergine Injection -) 0.2 mg IM Q4H PRN PRN Reason: Excessive Bleeding (L&D) Mupirocin (Bactroban Ointment (For Decolonization) -) 1 applic NS BID [facility] Stop: 01/23/17 09:59 Last Admin: 01/19/17 09:14 Dose: 1 applic Ondansetron HCl (Zofran Injection) 4 mg IVPB Q4H PRN PRN Reason: NAUSEA AND/OR VOMITING Oxycodone HCl (Roxicodone -) 5 mg PO Q4H PRN PRN Reason: PAIN LEVEL 1-5 Last Admin: 01/18/17 01:14 Dose: 5 mg Oxycodone HCl (Roxicodone -) 10 mg PO Q4H PRN PRN Reason: PAIN LEVEL 6-10 Last Admin: 01/19/17 02:06 Dose: 10 mg Piperacillin Sod/Tazobactam Sod (Zosyn 4.5gm Ivpb (Pre-Docked)) 4.5 gm IVPB Q8H -IV [facility] Last Admin: 01/19/17 09:12 Dose: 4.5 gm Multivit/Folic Acid/Iron ( Vitamins (Sjr) -) 1 tab PO DAILY [facility] Last Admin: 01/19/17 09:12 Dose: 1 tab Ranitidine HCl (Zantac -) 150 mg PO BID [facility] Last Admin: 01/19/17 09:12 Dose: 150 mg Senna/Docusate Sodium (Pericolace -) 2 tablet PO HS PRN PRN Reason: CONSTIPATION Simethicone (Mylicon -) 80 mg PO Q4H PRN PRN Reason: GAS ASSESSMENT AND PLAN: s/p Acute Blood Loss Anemia s/p PRBC transfusions Acute Hypoxic Respiratory Failure likely due to Volume Overload r/o Post Cardiomyopathy Cholelithiasis r/o Cholecystitis - IV lasix - monitor urine output, creatinine - keep net negative - f/u echocardiogram - empiric antibiotics - monitor fever curve, WBC trend - monitor H/H - lower suspicion for PE as CXR grossly overloaded with large bilateral effusions, pt without tachycardia, hypoxia after diuresis and negative LE dopplers - pain control - incentive spirometry - DVT prophylaxis - can transfer to maternity
[2017-01-19] MEDS ORDERED: BISACODYL 10 MG SUPP.RECT RC PRN (11:20)
[2017-01-19] MEDS ORDERED: METHYLERGONOVINE MALEATE 0.2 MG/1 ML AMP IM PRN (11:20)
[2017-01-19] MEDS ORDERED: ALBUTEROL SO4 0.083% IH SOL 2.5 MG/3 ML VIAL.NEB. NEB PRN (11:20)
[2017-01-19] MEDS ORDERED: oxyCODONE HCL 5 MG TABLET PO PRN ×2 (11:20)
[2017-01-19] MEDS ORDERED: ONDANSETRON 4 MG/2 ML VIAL IVPB PRN (11:20)
--- NOTE | 2017-01-19 11:59 | EKG ---
Test Reason : Blood Pressure : / mmHG Vent. Rate : 069 BPM Atrial Rate : 069 BPM P-R Int : 132 ms QRS Dur : 078 ms QT Int : 396 ms P-R-T Axes : 000 128 156 degrees QTc Int : 424 ms NORMAL SINUS RHYTHM LATERAL INFARCT , AGE UNDETERMINED ABNORMAL ECG NO PREVIOUS ECGS AVAILABLE Confirmed by CARIE SOUTH MD ([id number]) on 01/19/2017 11:58:58 AM Referred By: Confirmed By:CARIE SOUTH MD
--- NOTE | 2017-01-19 12:12 | PN ---
Progress Note (short form) - Note Progress Note: Renal Follow up for Hypertension and volume overload Pt seen and examined at the bedside reports feeling better denies any sob, chest pain had some MARROQUIN last night, no resolved LE swelling is improving Vital Signs Temperature 98.3 F 01/19/17 10:00 Pulse Rate 76 01/19/17 10:00 Respiratory Rate 22 01/19/17 10:00 Blood Pressure 132/76 01/19/17 10:00 O2 Sat by Pulse Oximetry (%) 98 01/18/17 21:00 Intake & Output 01/16/17 01/17/17 01/18/17 01/19/17 23:59 23:59 23:59 23:59 Intake Total 2240 1980 960 100 Output Total 500 3400 5850 Balance 3450 1420 -0328 100 Weight 151 lb 9 oz 147 lb 7.828 oz Gen: NAD CVS: RRR Lungs: Dec BS at lung bases, no rales Abd: soft NT/ND Ext: Trace edema in B/L LE CBC, BMP 01/19/17 05:20 01/19/17 05:20 Laboratory Tests 01/19/17 05:20 Calcium 7.7 L AST 22 D ALT 22 D Alkaline Phosphatase 194 H Albumin 1.9 L Current Medications Acetaminophen (Tylenol -) 650 mg PO Q4H PRN PRN Reason: FEVER OR PAIN Albuterol Sulfate (Ventolin 0.083% Nebulizer Soln -) 1 amp NEB Q4H PRN PRN Reason: SHORT OF BREATH/WHEEZING Bisacodyl (Dulcolax Suppository -) 10 mg RC PRN PRN PRN Reason: CONSTIPATION Ferrous Sulfate (Feosol -) 325 mg PO BID [facility] Furosemide (Lasix Injection -) 40 mg IVPUSH BID@1000,1600 [facility] Heparin Sodium (Porcine) (Heparin -) 5,000 unit SQ TID [facility] Piperacillin Sod/Tazobactam (Sod 4.5 gm/ Dextrose) 100 mls @ 200 mls/hr IVPB Q8H-IV [facility] Ibuprofen (Motrin -) 600 mg PO Q4H PRN PRN Reason: PAIN Insulin Aspart (Novolog Vial Sliding Scale -) 1 vial SQ ACHS [facility] PRN Reason: Protocol Methylergonovine Maleate (Methergine Injection -) 0.2 mg IM Q4H PRN PRN Reason: Excessive Bleeding (L&D) Ondansetron HCl (Zofran Injection) 4 mg IVPB Q4H PRN PRN Reason: NAUSEA AND/OR VOMITING Oxycodone HCl (Roxicodone -) 5 mg PO Q4H PRN PRN Reason: PAIN LEVEL 1-5 Oxycodone HCl (Roxicodone -) 10 mg PO Q4H PRN PRN Reason: PAIN LEVEL 6-10 Piperacillin Sod/Tazobactam Sod (Zosyn 4.5gm Ivpb (Pre-Docked)) 4.5 gm IVPB Q8H -IV [facility] Multivit/Folic Acid/Iron ( Vitamins (Sjr) -) 1 tab PO DAILY [facility] Ranitidine HCl (Zantac -) 150 mg PO BID [facility] Senna/Docusate Sodium (Pericolace -) 2 tablet PO HS PRN PRN Reason: CONSTIPATION Simethicone (Mylicon -) 80 mg PO Q4H PRN PRN Reason: GAS A/P 26 year old woman with PMhx of Asthma s/p C-scetion after her first complicated by Cholecystitis with SOB/volume overload and Hypertension following delivery. # Hypertension likely due to volume expansion +/- induced hypertension vs. HELLP/Preeclampsia BP improve to normal limits with IV diuretics Pt with low pt count and elevated AST (now improved) Repeat UA and UPCR Continue Lasix, switch to oral (pt not in resp disterss at this time) Trend renal function and electrolytes Goal BP < 140/90 low salt diet avoid nsaids for pain control plt counts not reported today, result remains pending added LDH and haptoglobin to am labs Wesley Willis DO
--- NOTE | 2017-01-19 12:21 | PN ---
Physical Exam: SUBJECTIVE: Patient seen and examined at bedside in ICU. Pt states she feels better today and has no complaints. She denies SOB, CP, abdominal pain, pain with eating, tolerating regular food diet, fevers, chills. She would like to see her baby. OBJECTIVE: Vital Signs Temperature 98.3 F 01/19/17 10:00 Pulse Rate 76 01/19/17 10:00 Respiratory Rate 22 01/19/17 10:00 Blood Pressure 132/76 01/19/17 10:00 O2 Sat by Pulse Oximetry (%) 98 01/18/17 21:00 GENERAL: The patient is awake, alert, and fully oriented, in no acute distress. HEAD: Normal with no signs of trauma. EYES: extraocular movements intact, sclera anicteric, conjunctiva clear. ENT: Ears normal, nares patent NECK: Trachea midline, full range of motion, supple. LUNGS: absent breath sounds in B/L lower lung rayo. improved compared to yesterday. HEART: Regular rate and rhythm, S1, S2, +systolic murmur 2/6 best heard in tricuspid area. ABDOMEN: Soft, some tenderness around area, nondistended, normoactive bowel sounds, no guarding, no rebound, no hepatosplenomegaly, no masses. EXTREMITIES: 2+ pulses, warm, well-perfused, no pitting edema in b/l LE NEUROLOGICAL: Cranial nerves II through XII grossly intact. Normal speech, gait not observed. PSYCH: Normal mood, normal affect. SKIN: Warm, dry Laboratory Results - last 24 hr 01/14/17 01/18/17 01/18/17 05:45 14:59 17:35 WBC RBC Hgb Hct MCV MCH MCHC RDW MPV Neutrophils % Lymphocytes % Monocytes % Eosinophils % Basophils % Sodium Potassium Chloride Carbon Dioxide Anion Gap BUN Creatinine Creat Clearance w eGFR POC Glucometer 142.57041 132.58891 Random Glucose Calcium Total Bilirubin AST ALT Alkaline Phosphatase Total Protein Albumin Blood Type O POSITIVE Antibody Screen Negative Crossmatch See Detail 01/18/17 01/19/17 01/19/17 22:13 05:20 05:20 WBC 12.9 H RBC 3.85 Hgb 8.7 L Hct 28.0 L MCV 72.6 L MCH 22.7 L MCHC 31.2 L RDW 21.7 H MPV 8.9 Neutrophils % 70.1 Lymphocytes % 15.9 Monocytes % 9.7 Eosinophils % 4.0 D Basophils % 0.3 Sodium 137 Potassium 3.9 Chloride 100 Carbon Dioxide 27 Anion Gap 10 BUN 9 D Creatinine 0.6 Creat Clearance w eGFR > 60 POC Glucometer 133.11225 Random Glucose 79 Calcium 7.7 L Total Bilirubin 0.7 AST 22 D ALT 22 D Alkaline Phosphatase 194 H Total Protein 5.4 L Albumin 1.9 L Blood Type Antibody Screen Crossmatch 01/19/17 01/19/17 06:28 10:52 WBC RBC Hgb Hct MCV MCH MCHC RDW MPV Neutrophils % Lymphocytes % Monocytes % Eosinophils % Basophils % Sodium Potassium Chloride Carbon Dioxide Anion Gap BUN Creatinine Creat Clearance w eGFR POC Glucometer 105.03920 95.16428 Random Glucose Calcium Total Bilirubin AST ALT Alkaline Phosphatase Total Protein Albumin Blood Type Antibody Screen Crossmatch Active Medications Generic Name Dose Route Start Last Admin Trade Name Freq PRN Reason Stop Dose Admin Acetaminophen 650 mg 01/19/17 11:20 Tylenol - PO Q4H PRN FEVER OR PAIN Albuterol Sulfate 1 amp 01/19/17 11:20 Ventolin 0.083% Nebulizer Soln - NEB Q4H PRN SHORT OF BREATH/WHEEZING Bisacodyl 10 mg 01/19/17 11:20 Dulcolax Suppository - RC PRN PRN CONSTIPATION Ferrous Sulfate 325 mg 01/19/17 22:00 Feosol - PO BID [facility] Furosemide 40 mg 01/19/17 16:00 Lasix Injection - IVPUSH BID@1000,1600 [facility] Heparin Sodium (Porcine) 5,000 unit 01/19/17 14:00 Heparin - SQ TID [facility] Piperacillin Sod/Tazobactam 100 mls @ 200 mls/hr 01/19/17 18:00 Sod 4.5 gm/ Dextrose IVPB Q8H-IV [facility] Ibuprofen 600 mg 01/19/17 11:20 Motrin - PO Q4H PRN PAIN Insulin Aspart 1 vial 01/19/17 16:30 Novolog Vial Sliding Scale - SQ ACHS [facility] Protocol Methylergonovine Maleate 0.2 mg 01/19/17 11:20 Methergine Injection - IM Q4H PRN Excessive Bleeding (L&D) Ondansetron HCl 4 mg 01/19/17 11:20 Zofran Injection IVPB Q4H PRN NAUSEA AND/OR VOMITING Oxycodone HCl 5 mg 01/19/17 11:20 Roxicodone - PO Q4H PRN PAIN LEVEL 1-5 Oxycodone HCl 10 mg 01/19/17 11:20 Roxicodone - PO Q4H PRN PAIN LEVEL 6-10 Multivit/Folic Acid/Iron 1 tab 01/20/17 10:00 Vitamins (Sjr) - PO DAILY [facility] Ranitidine HCl 150 mg 01/19/17 22:00 Zantac - PO BID [facility] Senna/Docusate Sodium 2 tablet 01/19/17 11:20 Pericolace - PO HS PRN CONSTIPATION Simethicone 80 mg 01/19/17 11:20 Mylicon - PO Q4H PRN GAS Imaging: CXR: B/L pleural effusions with some improvement. Echo: RA size may be increased; moderate TR ASSESSMENT/PLAN: 26 y/o F with PMH of cholelithiasis, asthma, HTN and gestational diabetes admitted to ICU due to respiratory distress s/p . Neuro Mental status intact Pulm SOB secondary to fluid overload -pt is s/p 2 units PRBCs this admission -CXR with some improvement in b/l mod/large pleural effusion -IV lasix -ECHO - RA size may be increased, moderate TR -O2 supplementation to keep saturation above 90% -monitor I/Os, to keep pt in net negative Hr Manager s/p , post -pain control with oxycodone 5 mg po q4h prn pain 1-5, 10 mg po q4h prn pain 6-10 -IV tylenol 1 g once given earlier this AM with good response GI Cholelithiasis with cholecystitis -surgery on board -ranitidine 150 mg po bid -zosyn Cardio New onset murmur -ECHO - RA size may be increased; moderate TR -likely due to fluid overload FEN -no fluids at this time -monitor electrolytes, replete as needed Dispo -Stable to transfer to post-.l Problem List - Problems (1) Cholelithiasis Code(s): K80.20 - CALCULUS OF GALLBLADDER W/O CHOLECYSTITIS W/O OBSTRUCTION (2) Fluid overload Code(s): E87.70 - FLUID OVERLOAD, UNSPECIFIED (3) Abdominal pain Code(s): R10.9 - UNSPECIFIED ABDOMINAL PAIN (4) SOB (shortness of breath) Code(s): R06.02 - SHORTNESS OF BREATH Visit type - Emergency Visit Emergency Visit: Yes ED Registration Date: 01/14/17 Care time: The patient presented to the Emergency Department on the above date and was hospitalized for further evaluation of their emergent condition. - New Patient This patient is new to me today: No - Critical Care Critical Care patient: Yes Total Critical Care Time (in minutes): 35 Critical Care Statement: The care of this patient involved high complexity decision making to prevent further life threatening deterioration of the patient 's condition and/or to evalute & treat vital organ system(s) failure or risk of failure.
[2017-01-19 13:05] LABS: ANISOCYTOSIS 3+; HYPOCHROMIA 1+; MICROCYTOSIS 2+; PLATELET ESTIMATE ADEQUATE (NORMAL); POLYCHROMASIA 1+
[2017-01-19] MEDS ORDERED: HEPARIN NA (PORCINE) 5,000 UNITS/ML 1ML VIAL SQ SCH (14:00)
--- NOTE | 2017-01-19 14:03 | PN ---
Physical Exam: SUBJECTIVE: Patient seen and examined today at bedside. Pt resting comfortably. No acute events overnight. Pt was able to walk around unit yesterday. Denies shortness of breath, extremity pain, abdominal pain, nausea or vomiting. OBJECTIVE: Vital Signs Period Temp Pulse Resp BP Sys/Naik Pulse Ox Last 24 Hr 97.5 F-98.8 F 57-98 18-35 126-154/66-104 98 GENERAL: The patient is awake, alert, and fully oriented, in no acute distress. HEAD: Normal with no signs of trauma. EYES: PERRL, extraocular movements intact, sclera anicteric, conjunctiva clear. No ptosis. NECK: Trachea midline, supple. LUNGS: decreased breath sounds bilaterally, but improved from yesterday HEART: Regular rate and rhythm, S1, S2 without murmur, rub or gallop. ABDOMEN: Soft, nontender, nondistended, normoactive bowel sounds, no guarding, no rebound EXTREMITIES: 2+ posterior tibial pulses, warm, no pitting edema noted Laboratory Results - last 24 hr 01/14/17 01/18/17 01/18/17 05:45 14:59 17:35 WBC RBC Hgb Hct MCV MCH MCHC RDW Plt Count MPV Neutrophils % Lymphocytes % Monocytes % Eosinophils % Basophils % Platelet Estimate Platelet Comment Polychromasia Hypochromic-Microcytic Anisocytosis Microcytosis Macrocytosis Sodium Potassium Chloride Carbon Dioxide Anion Gap BUN Creatinine Creat Clearance w eGFR POC Glucometer 142.70197 132.24663 Random Glucose Calcium Total Bilirubin AST ALT Alkaline Phosphatase LD Total Total Protein Albumin Blood Type O POSITIVE Antibody Screen Negative Crossmatch See Detail 01/18/17 01/19/17 01/19/17 22:13 05:20 05:20 WBC 12.9 H RBC 3.85 Hgb 8.7 L Hct 28.0 L MCV 72.6 L MCH 22.7 L MCHC 31.2 L RDW 21.7 H Plt Count No Result Required. MPV 8.9 Neutrophils % 70.1 Lymphocytes % 15.9 Monocytes % 9.7 Eosinophils % 4.0 D Basophils % 0.3 Platelet Estimate Adequate Platelet Comment Mod plt clumping Polychromasia 1+ Hypochromic-Microcytic 1+ Anisocytosis 3+ Microcytosis 2+ Macrocytosis 1+ Sodium 137 Potassium 3.9 Chloride 100 Carbon Dioxide 27 Anion Gap 10 BUN 9 D Creatinine 0.6 Creat Clearance w eGFR > 60 POC Glucometer 133.11373 Random Glucose 79 Calcium 7.7 L Total Bilirubin 0.7 AST 22 D ALT 22 D Alkaline Phosphatase 194 H LD Total Total Protein 5.4 L Albumin 1.9 L Blood Type Antibody Screen Crossmatch 01/19/17 01/19/17 01/19/17 06:28 10:52 12:10 WBC RBC Hgb Hct MCV MCH MCHC RDW Plt Count MPV Neutrophils % Lymphocytes % Monocytes % Eosinophils % Basophils % Platelet Estimate Platelet Comment Polychromasia Hypochromic-Microcytic Anisocytosis Microcytosis Macrocytosis Sodium Potassium Chloride Carbon Dioxide Anion Gap BUN Creatinine Creat Clearance w eGFR POC Glucometer 105.37859 95.85971 Random Glucose Calcium Total Bilirubin AST ALT Alkaline Phosphatase LD Total 223 Total Protein Albumin Blood Type Antibody Screen Crossmatch Active Medications Generic Name Dose Route Start Last Admin Trade Name Freq PRN Reason Stop Dose Admin Acetaminophen 650 mg 01/19/17 11:20 Tylenol - PO Q4H PRN FEVER OR PAIN Albuterol Sulfate 1 amp 01/19/17 11:20 Ventolin 0.083% Nebulizer Soln - NEB Q4H PRN SHORT OF BREATH/WHEEZING Bisacodyl 10 mg 01/19/17 11:20 Dulcolax Suppository - RC PRN PRN CONSTIPATION Enoxaparin Sodium 40 mg 01/20/17 10:00 Lovenox - SQ DAILY [facility] Ferrous Sulfate 325 mg 01/19/17 22:00 Feosol - PO BID [facility] Furosemide 40 mg 01/19/17 14:00 Lasix - PO BID@0600,1400 [facility] Piperacillin Sod/Tazobactam 100 mls @ 200 mls/hr 01/19/17 18:00 Sod 4.5 gm/ Dextrose IVPB Q8H-IV [facility] Ibuprofen 600 mg 01/19/17 11:20 Motrin - PO Q4H PRN PAIN Insulin Aspart 1 vial 01/19/17 16:30 Novolog Vial Sliding Scale - SQ ACHS [facility] Protocol Methylergonovine Maleate 0.2 mg 01/19/17 11:20 Methergine Injection - IM Q4H PRN Excessive Bleeding (L&D) Ondansetron HCl 4 mg 01/19/17 11:20 Zofran Injection IVPB Q4H PRN NAUSEA AND/OR VOMITING Oxycodone HCl 5 mg 01/19/17 11:20 Roxicodone - PO Q4H PRN PAIN LEVEL 1-5 Oxycodone HCl 10 mg 01/19/17 11:20 Roxicodone - PO Q4H PRN PAIN LEVEL 6-10 Multivit/Folic Acid/Iron 1 tab 01/20/17 10:00 Vitamins (Sjr) - PO DAILY [facility] Ranitidine HCl 150 mg 01/19/17 22:00 Zantac - PO BID [facility] Senna/Docusate Sodium 2 tablet 01/19/17 11:20 Pericolace - PO HS PRN CONSTIPATION Simethicone 80 mg 01/19/17 11:20 Mylicon - PO Q4H PRN GAS ASSESSMENT/PLAN: This is a 26 year old F with PMH of asthma, cholelithiasis, POD 5 s/p c section complicated by hemorrhage (which required 2 units of PRBCs), who developed respiratory distress. Medicine team consulted for shortness of breath. 1. Shortness of breath -Continue Lasix 40 mg IV diuresis BID -Strict I's and O's -Repeat CXR: bilateral pleural effusions (consistent with previous) -Echo: RA size may be increased; moderate TR -Pt transferred 3W 01/19/17 2. Acute cholecystitis -Surgery consulted (Dr. Huynh) -Ranitidine 150 mg PO BID -Zosyn, awaiting ID consult 3. hypertension likely from volume expansion- improved Recommendations from nephrology: -Continue to monitor BP -May need Nifedipine if BP remains above goal of 140/90 -Low salt diet -Trend BP -Repeat urine studies 3. Chorioamnionitis -Zosyn, discuss with ID -Pain control: oxycodone 5mg PO q4hr PRN pain 1-5 -Oxycodone 10mg PO q4hr PRN pain 6-10 4. DVT prophylaxis -Heparin drip Visit type - Emergency Visit Emergency Visit: No - New Patient This patient is new to me today: No - Critical Care Critical Care patient: Yes Total Critical Care Time (in minutes): 10 - Discharge Referral Referred to [facility] No
[2017-01-19 14:31] LABS: URINE APPEARANCE CLEAR; URINE BILIRUBIN NEGATIVE (NEGATIVE); URINE COLOR COLORLESS; URINE GLUCOSE (UA) NEGATIVE (NEGATIVE); URINE KETONE NEGATIVE (NEGATIVE); URINE LEUK ESTERASE NEGATIVE (NEGATIVE); URINE NITRITE NEGATIVE (NEGATIVE); URINE PROTEIN NEGATIVE (NEGATIVE); URINE UROBILINOGEN NEGATIVE E.U./dl (0.2-1.0)
[2017-01-19 14:54] LABS: URINE BLOOD 2+ (NEGATIVE); URINE CREATININE < 13.0 mg/dL (20-320)
--- NOTE | 2017-01-19 15:01 | PN ---
Progress Note, Physician History of Present Illness: patient doing much better no new issues says no pain any more feeling much better - Current Medication List Current Medications: Active Medications Acetaminophen (Tylenol -) 650 mg PO Q4H PRN PRN Reason: FEVER OR PAIN Albuterol Sulfate (Ventolin 0.083% Nebulizer Soln -) 1 amp NEB Q4H PRN PRN Reason: SHORT OF BREATH/WHEEZING Bisacodyl (Dulcolax Suppository -) 10 mg RC PRN PRN PRN Reason: CONSTIPATION Enoxaparin Sodium (Lovenox -) 40 mg SQ DAILY [facility] Ferrous Sulfate (Feosol -) 325 mg PO BID [facility] Furosemide (Lasix -) 40 mg PO BID@0600,1400 [facility] Piperacillin Sod/Tazobactam (Sod 4.5 gm/ Dextrose) 100 mls @ 200 mls/hr IVPB Q8H-IV [facility] Ibuprofen (Motrin -) 600 mg PO Q4H PRN PRN Reason: PAIN Insulin Aspart (Novolog Vial Sliding Scale -) 1 vial SQ ACHS [facility] PRN Reason: Protocol Methylergonovine Maleate (Methergine Injection -) 0.2 mg IM Q4H PRN PRN Reason: Excessive Bleeding (L&D) Ondansetron HCl (Zofran Injection) 4 mg IVPB Q4H PRN PRN Reason: NAUSEA AND/OR VOMITING Oxycodone HCl (Roxicodone -) 5 mg PO Q4H PRN PRN Reason: PAIN LEVEL 1-5 Oxycodone HCl (Roxicodone -) 10 mg PO Q4H PRN PRN Reason: PAIN LEVEL 6-10 Multivit/Folic Acid/Iron ( Vitamins (Sjr) -) 1 tab PO DAILY [facility] Ranitidine HCl (Zantac -) 150 mg PO BID [facility] Senna/Docusate Sodium (Pericolace -) 2 tablet PO HS PRN PRN Reason: CONSTIPATION Simethicone (Mylicon -) 80 mg PO Q4H PRN PRN Reason: GAS - Objective Vital Signs: Vital Signs Temperature 97.9 F 01/19/17 13:33 Pulse Rate 98 H 01/19/17 13:33 Respiratory Rate 20 01/19/17 13:33 Blood Pressure 126/83 01/19/17 13:33 O2 Sat by Pulse Oximetry (%) 98 01/18/17 21:00 Constitutional: Yes: No Distress, Calm Cardiovascular: Yes: Regular Rate and Rhythm Respiratory: Yes: Regular, CTA Bilaterally Gastrointestinal: Yes: Normal Bowel Sounds, Soft Musculoskeletal: Yes: WNL Extremities: Yes: WNL Neurological: Yes: Alert, Oriented Psychiatric: Yes: Alert, Oriented Labs: CBC, BMP 01/19/17 05:20 01/19/17 05:20 INR, PTT INR 0.95 (0.82-1.09) 01/14/17 05:45 Assessment/Plan patient currently stable post c section cardiomyopathy ac blood loss ac choleycystitis hypoxia pleural effusion leukocytosis plan continue current abx monitor abd pain monitor wbc monitor vitals and parameters wbc trending down
[2017-01-19 15:08] LABS: URINE RBC 22 /hpf (0-3); URINE WBC 11 /hpf (3-5)
[2017-01-19] MEDS: HEPARIN NA (PORCINE) 5,000 UNITS/ML 1ML VIAL SQ SCH (15:22)
[2017-01-19] MEDS: FUROSEMIDE 40 MG TABLET (FP) PO SCH (15:56)
[2017-01-19] MEDS: PIPERACILLIN/TAZOB 4.5 GM 4.5 GM in DEXTROSE 5%-WATER - 100 ML IVPB SCH (17:45)
[2017-01-19] MEDS ORDERED: PIPERACILLIN/TAZOB 4.5 GM/100 ML PRE-DOCKED IVPB SCH (18:00)
[2017-01-19] MEDS: OXYTOCIN 20 UNITS in 0.9% NS 1,000 ML IV SCH (18:53)
[2017-01-19] MEDS: SODIUM CHLORIDE 1,000 ML IV SCH (18:55)
[2017-01-19] MEDS: AMPICILLIN - 1 GM in SODIUM CHLORIDE 100 ML IVPB SCH (18:55)
[2017-01-19] MEDS: IBUPROFEN 600 MG TABLET (FP) PO PRN (21:53)
[2017-01-19] MEDS: ACETAMINOPHEN 325 MG TABLET (FP) PO PRN (21:54)
[2017-01-19] MEDS: SIMETHICONE 80 MG TAB.CHEW (FP) PO PRN (21:55)
[2017-01-19] MEDS ORDERED: CHLORHEXIDINE GLUCONATE 4% CLEANSER FOR DECOLONIZATION TP SCH (22:00)
[2017-01-19] MEDS ORDERED: MUPIROCIN 2% TOPICAL OINTMENT FOR DECOLONIZATION NS SCH (22:00)
[2017-01-20] MEDS: PIPERACILLIN/TAZOB 4.5 GM 4.5 GM in DEXTROSE 5%-WATER - 100 ML IVPB SCH ×2 (01:57→10:04)
[2017-01-20] MEDS: INSULIN SLIDING SCALE (NOVOLOG) 1 VIAL SQ SCH ×2 (06:04→11:21)
[2017-01-20] MEDS: FUROSEMIDE 40 MG TABLET (FP) PO SCH ×2 (06:04→13:47)
[2017-01-20 08:14] LABS: BASOPHIL 0.2 % (0-2.0); EOSINOPHIL 4.1 % (0-4.5); MCH 22.9 pg (25.7-33.7); MCHC 31.2 g/dl (32.0-36.0); MEAN CELL VOLUME 73.3 fl (80-96); NEUTROPHILS 64.6 % (42.8-82.8); RDW 22.5 % (11.6-15.6); WHITE BLOOD COUNT 12.4 K/mm3 (4.0-10.0)
[2017-01-20 09:17] LABS: ANION GAP 12 (8-16); BILIRUBIN,TOTAL 0.5 mg/dL (0.2-1.0); CALCIUM 8.2 mg/dL (8.5-10.1); CO2 23 mmol/L (21-32); CREATININE 0.5 mg/dL (0.55-1.02); GLUCOSE,RANDOM 74 mg/dL (74-106); SGOT/AST 17 U/L (15-37); SGPT/ALT 19 U/L (12-78); TOT PROT 5.7 g/dl (6.4-8.2)
[2017-01-20 09:18] LABS: ALK PHOS 182 U/L (45-117)
[2017-01-20 09:53] LABS: PLATELET ESTIMATE ADEQUATE (NORMAL)
[2017-01-20] MEDS: RANITIDINE HCL 150 MG TABLET (FP) PO SCH ×2 (10:05→22:11)
[2017-01-20] MEDS: FERROUS SO4 325 MG TABLET (FP) PO SCH ×2 (10:05→22:11)
[2017-01-20] MEDS: PRENATAL VITAMINS W/ FOLIC ACID TABLET (FP) PO SCH (10:05)
[2017-01-20] MEDS: ENOXAPARIN NA (PORCINE) 40 MG/0.4 ML DISP.SYRIN SQ SCH (10:05)
--- NOTE | 2017-01-20 10:39 | PN ---
Physical Exam: SUBJECTIVE: Patient seen and examined at bedside. No acute events overnight. Resting comfortably and denies headache, chills, SOB, chest pain, or pain in her lower extremities. OBJECTIVE: Vital Signs Period Temp Pulse Resp BP Sys/Naik Pulse Ox Last 24 Hr 97.4 F-98.6 F 48-103 18-20 116-145/66-91 GENERAL: The patient is awake, alert, and fully oriented, in no acute distress. HEAD: Normal with no signs of trauma. EYES: PERRL, extraocular movements intact, sclera anicteric, conjunctiva clear. NECK: Trachea midline, supple. LUNGS: decreased lung sounds at bases, no wheezes, no crackles, no accessory muscle use. HEART: Regular rate and rhythm, S1, S2 without murmur, rub or gallop. ABDOMEN: Soft, nontender, nondistended, normoactive bowel sounds, no guarding, no rebound EXTREMITIES: 2+ posterior tibial pulses, warm, well-perfused, no pitting edema. NEUROLOGICAL: Cranial nerves II through XII grossly intact. Laboratory Results - last 24 hr 01/14/17 01/19/17 01/19/17 05:45 05:20 06:28 WBC 12.9 H RBC 3.85 Hgb 8.7 L Hct 28.0 L MCV 72.6 L MCH 22.7 L MCHC 31.2 L RDW 21.7 H Plt Count No Result Required. MPV 8.9 Neutrophils % 70.1 Lymphocytes % 15.9 Monocytes % 9.7 Eosinophils % 4.0 D Basophils % 0.3 Platelet Estimate Adequate Platelet Comment Mod plt clumping Polychromasia 1+ Hypochromic-Microcytic 1+ Anisocytosis 3+ Microcytosis 2+ Macrocytosis 1+ Haptoglobin Sodium Potassium Chloride Carbon Dioxide Anion Gap BUN Creatinine Creat Clearance w eGFR POC Glucometer 105.47838 Random Glucose Calcium Total Bilirubin AST ALT Alkaline Phosphatase LD Total Total Protein Albumin Urine Color Urine Appearance Urine pH Ur Specific [place] Urine Protein Urine Glucose (UA) Urine Ketones Urine Blood Urine Nitrite Urine Bilirubin Urine Urobilinogen Ur Leukocyte Esterase Urine RBC Urine WBC Ur Epithelial Cells U Random Total Protein Urine Creatinine Protein/Creatinin Ratio Blood Type O POSITIVE Antibody Screen Negative Crossmatch See Detail 01/19/17 01/19/17 01/19/17 10:52 12:10 12:10 WBC RBC Hgb Hct MCV MCH MCHC RDW Plt Count MPV Neutrophils % Lymphocytes % Monocytes % Eosinophils % Basophils % Platelet Estimate Platelet Comment Polychromasia Hypochromic-Microcytic Anisocytosis Microcytosis Macrocytosis Haptoglobin 308 H Sodium Potassium Chloride Carbon Dioxide Anion Gap BUN Creatinine Creat Clearance w eGFR POC Glucometer 95.05453 Random Glucose Calcium Total Bilirubin AST ALT Alkaline Phosphatase LD Total 223 Total Protein Albumin Urine Color Urine Appearance Urine pH Ur Specific [place] Urine Protein Urine Glucose (UA) Urine Ketones Urine Blood Urine Nitrite Urine Bilirubin Urine Urobilinogen Ur Leukocyte Esterase Urine RBC Urine WBC Ur Epithelial Cells U Random Total Protein Urine Creatinine Protein/Creatinin Ratio Blood Type Antibody Screen Crossmatch 01/19/17 01/19/17 01/19/17 12:30 12:30 14:00 WBC RBC Hgb Hct MCV MCH MCHC RDW Plt Count MPV Neutrophils % Lymphocytes % Monocytes % Eosinophils % Basophils % Platelet Estimate Platelet Comment Polychromasia Hypochromic-Microcytic Anisocytosis Microcytosis Macrocytosis Haptoglobin Sodium Potassium Chloride Carbon Dioxide Anion Gap BUN Creatinine Creat Clearance w eGFR POC Glucometer 107 Random Glucose Calcium Total Bilirubin AST ALT Alkaline Phosphatase LD Total Total Protein Albumin Urine Color Colorless Urine Appearance Clear Urine pH 8.0 D Ur Specific [place] 1.015 Urine Protein Negative Urine Glucose (UA) Negative Urine Ketones Negative Urine Blood 2+ H Urine Nitrite Negative Urine Bilirubin Negative Urine Urobilinogen Negative Ur Leukocyte Esterase Negative Urine RBC 22 Urine WBC 11 Ur Epithelial Cells Rare U Random Total Protein 10 Urine Creatinine < 13.0 L Protein/Creatinin Ratio <1 Blood Type Antibody Screen Crossmatch 01/19/17 01/20/17 01/20/17 21:39 05:58 07:25 WBC 12.4 H RBC 4.13 Hgb 9.5 L Hct 30.3 L MCV 73.3 L MCH 22.9 L MCHC 31.2 L RDW 22.5 H Plt Count No Result Required. MPV 9.0 Neutrophils % 64.6 Lymphocytes % 21.9 D Monocytes % 9.2 Eosinophils % 4.1 Basophils % 0.2 Platelet Estimate Adequate Platelet Comment Mod plt clumping Polychromasia Hypochromic-Microcytic Anisocytosis Microcytosis Macrocytosis Haptoglobin Sodium Potassium Chloride Carbon Dioxide Anion Gap BUN Creatinine Creat Clearance w eGFR POC Glucometer 123 91 Random Glucose Calcium Total Bilirubin AST ALT Alkaline Phosphatase LD Total Total Protein Albumin Urine Color Urine Appearance Urine pH Ur Specific [place] Urine Protein Urine Glucose (UA) Urine Ketones Urine Blood Urine Nitrite Urine Bilirubin Urine Urobilinogen Ur Leukocyte Esterase Urine RBC Urine WBC Ur Epithelial Cells U Random Total Protein Urine Creatinine Protein/Creatinin Ratio Blood Type Antibody Screen Crossmatch 01/20/17 07:25 WBC RBC Hgb Hct MCV MCH MCHC RDW Plt Count MPV Neutrophils % Lymphocytes % Monocytes % Eosinophils % Basophils % Platelet Estimate Platelet Comment Polychromasia Hypochromic-Microcytic Anisocytosis Microcytosis Macrocytosis Haptoglobin Sodium 139 Potassium 4.1 Chloride 104 Carbon Dioxide 23 Anion Gap 12 BUN 10 Creatinine 0.5 L Creat Clearance w eGFR > 60 POC Glucometer Random Glucose 74 Calcium 8.2 L Total Bilirubin 0.5 D AST 17 D ALT 19 Alkaline Phosphatase 182 H LD Total Total Protein 5.7 L Albumin 2.0 L Urine Color Urine Appearance Urine pH Ur Specific [place] Urine Protein Urine Glucose (UA) Urine Ketones Urine Blood Urine Nitrite Urine Bilirubin Urine Urobilinogen Ur Leukocyte Esterase Urine RBC Urine WBC Ur Epithelial Cells U Random Total Protein Urine Creatinine Protein/Creatinin Ratio Blood Type Antibody Screen Crossmatch Active Medications Generic Name Dose Route Start Last Admin Trade Name Freq PRN Reason Stop Dose Admin Acetaminophen 650 mg 01/19/17 11:20 01/19/17 21:54 Tylenol - PO 650 mg Q4H PRN Administration FEVER OR PAIN Albuterol Sulfate 1 amp 01/19/17 11:20 Ventolin 0.083% Nebulizer Soln - NEB Q4H PRN SHORT OF BREATH/WHEEZING Bisacodyl 10 mg 01/19/17 11:20 Dulcolax Suppository - RC PRN PRN CONSTIPATION Enoxaparin Sodium 40 mg 01/20/17 10:00 01/20/17 10:05 Lovenox - SQ 40 mg DAILY [facility] Administration Ferrous Sulfate 325 mg 01/19/17 22:00 01/20/17 10:05 Feosol - PO 325 mg BID [facility] Administration Furosemide 40 mg 01/19/17 14:00 01/20/17 06:04 Lasix - PO 40 mg BID@0600,1400 [facility] Administration Piperacillin Sod/Tazobactam 100 mls @ 200 mls/hr 01/19/17 18:00 01/20/17 10:04 Sod 4.5 gm/ Dextrose IVPB 200 mls/hr Q8H-IV [facility] Administration Ibuprofen 600 mg 01/19/17 11:20 01/19/17 21:53 Motrin - PO 600 mg Q4H PRN Administration PAIN Insulin Aspart 1 vial 01/19/17 16:30 01/20/17 06:04 Novolog Vial Sliding Scale - SQ Not Given ACHS [facility] Protocol Methylergonovine Maleate 0.2 mg 01/19/17 11:20 Methergine Injection - IM Q4H PRN Excessive Bleeding (L&D) Ondansetron HCl 4 mg 01/19/17 11:20 Zofran Injection IVPB Q4H PRN NAUSEA AND/OR VOMITING Oxycodone HCl 5 mg 01/19/17 11:20 Roxicodone - PO Q4H PRN PAIN LEVEL 1-5 Oxycodone HCl 10 mg 01/19/17 11:20 Roxicodone - PO Q4H PRN PAIN LEVEL 6-10 Multivit/Folic Acid/Iron 1 tab 01/20/17 10:00 01/20/17 10:05 Vitamins (Sjr) - PO 1 tab DAILY [facility] Administration Ranitidine HCl 150 mg 01/19/17 22:00 01/20/17 10:05 Zantac - PO 150 mg BID [facility] Administration Senna/Docusate Sodium 2 tablet 01/19/17 11:20 Pericolace - PO HS PRN CONSTIPATION Simethicone 80 mg 01/19/17 11:20 01/19/17 21:55 Mylicon - PO 80 mg Q4H PRN Administration GAS ASSESSMENT/PLAN: This is a 26 year old F with PMH of asthma, cholelithiasis, POD 6 s/p c section complicated by hemorrhage (which required 2 units of PRBCs), who developed respiratory distress. Medicine team consulted for shortness of breath. 1. Shortness of breath -improved, not using supplemental oxygen, saturating well -Continue Lasix 40 mg PO BID -Strict I's and O's 2. Acute cholecystitis -ALP 182 (trending down from 194) -WBC 12.4 (trending down from 12.9) -Surgery consulted -Ranitidine 150 mg PO BID -Zosyn 4.5 grams 3. hypertension likely from volume expansion- improved Recommendations from nephrology: -Continue to monitor BP -May need Nifedipine if BP remains above goal of 140/90 -Low salt diet -Trend BP -Repeat urine studies 3. Chorioamnionitis -Zosyn 4.5 grams, discuss with ID -Pain control: oxycodone 5mg PO q4hr PRN pain 1-5 -Oxycodone 10mg PO q4hr PRN pain 6-10 4. DVT prophylaxis -Heparin drip Visit type - Emergency Visit Emergency Visit: No - New Patient This patient is new to me today: No - Critical Care Critical Care patient: No
--- NOTE | 2017-01-20 10:44 | PN ---
Teaching Attending Note Name of Resident: Brianna Leon ATTENDING PHYSICIAN STATEMENT I saw and evaluated the patient. I reviewed the resident's note and discussed the case with the resident. I agree with the resident's findings and plan as documented. SUBJECTIVE: patient reports no SOB, no chest pain OBJECTIVE: Vital Signs Temperature 97.4 F L 01/20/17 06:00 Pulse Rate 48 L 01/20/17 06:00 Respiratory Rate 18 01/20/17 06:00 Blood Pressure 140/86 01/20/17 06:00 O2 Sat by Pulse Oximetry (%) 98 01/18/17 21:00 Constitutional: Yes: No Distress, Calm Cardiovascular: Yes: Regular Rate and Rhythm Respiratory: Yes: Improved air entry , no wheezing Gastrointestinal: Yes: Normal Bowel Sounds, Soft Musculoskeletal: Yes: WNL Extremities: Yes: WNL Neurological: Yes: Alert, Oriented Psychiatric: Yes: Alert, Oriented Labs: CBC, BMP 01/20/17 07:25 01/20/17 07:25 Vital Signs Temp 97.4 F L 01/20/17 06:00 Pulse 48 L 01/20/17 06:00 Resp 18 01/20/17 06:00 BP 140/86 01/20/17 06:00 Pulse Ox 98 01/18/17 21:00 Intake & Output 01/19/17 01/19/17 01/20/17 11:59 23:59 11:59 Intake Total 100 500 200 Output Total 1200 900 Balance 100 -700 -700 Weight 66.9 kg 64.183 kg Intake: IVPB 100 Oral 500 200 Output: Urine 1200 900 Void 1200 900 Other: Voiding Method Bedside Commode Toilet # Unmeasured Voids Void 6 Bowel Movement Yes # Bowel Movements 1 Weight Measurement Method Built in Bedscale Standing Scale ASSESSMENT AND PLAN: 26 year old female 6 days post c section that developed hypoxia 1. Respiratory failure - This was likely multifactorial and caused by combination of fluid overload, uncontrolled HTN , b/l atelectasis and diastolic dysfunction. She was treated with IV lasix and is maintaining negative fluid balance . Asympthomatic today. - switch to PO lasix - monitor I&O - CXR in am 2. Acute cholecystitis - abdomianl pain resolved , she has been managed conservatively with IV antibiotics however needs cholecystetomy which will be planned as soon as her respiratory status is stable 4 Uncontrolled HTN - no evidence of proteinuria, possibly newly diagnosed HTN will start low dose procardia
--- NOTE | 2017-01-20 11:00 | PN ---
Post Progress Note - Subjective Subjective: painscale 11/17 . still c/o pain in ruq today no nausea or vomiting no c/o sob Type of Delivery: Primary C/S Vital Signs: Vital Signs Temperature 97.9 F 01/20/17 10:00 Pulse Rate 50 L 01/20/17 10:00 Respiratory Rate 18 01/20/17 10:00 Blood Pressure 159/81 01/20/17 10:00 O2 Sat by Pulse Oximetry (%) 98 01/20/17 09:00 Breast Exam: Yes: Soft, Other (not BF ). No: Engorged Uterus: Yes: Fundus Firm, Fundus below umbilicus, Other (deep tenderness ) Incision: Yes: Other (steri strips in situ, wound healing satisfactory ). No: Redness, Oozing Abdomen/GI: Yes: Abdomen soft, Tender (deep tnderness in RUQ & epigastric region ), Passing flatus, Tolerating PO (diet ). No: Abdominal Distention Lochia: Yes: Rubra Lochia, amount: Small Extremities: Yes: Calves non-tender. No: Edema Perineum: Yes: Intact Activity: Ambulating - Labs Labs: CBC WBC 12.4 K/mm3 (4.0-10.0) H 01/20/17 07:25 RBC 4.13 M/mm3 (3.60-5.2) 01/20/17 07:25 Hgb 9.5 GM/dL (10.7-15.3) L 01/20/17 07:25 Hct 30.3 % (32.4-45.2) L 01/20/17 07:25 MCV 73.3 fl (80-96) L 01/20/17 07:25 MCH 22.9 pg (25.7-33.7) L 01/20/17 07:25 MCHC 31.2 g/dl (32.0-36.0) L 01/20/17 07:25 RDW 22.5 % (11.6-15.6) H 01/20/17 07:25 Plt Count No Result Required. 01/20/17 07:25 MPV 9.0 fl (7.5-11.1) 01/20/17 07:25 Neutrophils % 64.6 % (42.8-82.8) 01/20/17 07:25 Lymphocytes % 21.9 % (8-40) D 01/20/17 07:25 Monocytes % 9.2 % (3.8-10.2) 01/20/17 07:25 Eosinophils % 4.1 % (0-4.5) 01/20/17 07:25 Basophils % 0.2 % (0-2.0) 01/20/17 07:25 Band Neutrophils 8.0 % (0-10) 01/15/17 07:25 Nucleated RBCs 2 % (0-0) H 01/15/17 07:25 Differential Comment Manual diff done 01/15/17 07:25 Platelet Estimate Adequate (NORMAL) 01/20/17 07:25 Platelet Comment Mod plt clumping 01/20/17 07:25 Platelet Comment No clotting detected 01/14/17 05:45 Polychromasia 1+ 01/19/17 05:20 Hypochromic-Microcytic 1+ 01/19/17 05:20 Anisocytosis 3+ 01/19/17 05:20 Microcytosis 2+ 01/19/17 05:20 Macrocytosis 1+ 01/19/17 05:20 Rouleaux 1+ 01/15/17 07:25 ESR 65 mm/hr (0-20) H 01/17/17 17:45 Haptoglobin 308 mg/dL (34-200) H 01/19/17 12:10 Laboratory Tests 01/19/17 01/19/17 01/20/17 14:00 21:39 05:58 Sodium Potassium Chloride Carbon Dioxide BUN Creatinine POC Glucometer 107 123 91 Random Glucose AST ALT 01/20/17 07:25 Sodium 139 Potassium 4.1 Chloride 104 Carbon Dioxide 23 BUN 10 Creatinine 0.5 L POC Glucometer Random Glucose 74 AST 17 D ALT 19 Other Findings, Remarks: RS still at bases air entry is diminished , improving , no wheezing icentive france vol upto 1000 ml sometimes or below it i/o 600/1200 on 01/19 01/20 ui/o 200/900 Problem List - Problems (1) 38 to 41 weeks gestation of Code(s): OUH4734 - (2) Labor established Code(s): WZC2171 - (3) Anemia Code(s): D64.9 - ANEMIA, UNSPECIFIED Qualifiers: Anemia type: iron deficiency (4) Cholelithiasis Code(s): K80.20 - CALCULUS OF GALLBLADDER W/O CHOLECYSTITIS W/O OBSTRUCTION (5) Cholelithiasis affecting in third trimester, antepartum Code(s): O26.613 - LIVER AND BILIARY TRACT DISORD IN , THIRD TRIMESTER K80.20 - CALCULUS OF GALLBLADDER W/O CHOLECYSTITIS W/O OBSTRUCTION (6) Gestational diabetes mellitus (GDM) controlled on oral hypoglycemic drug Code(s): O24.415 - GESTATNL DIABETES IN PREG, CTRL BY ORAL HYPOGLYCEMIC DRUGS (7) Gestational diabetes mellitus (GDM) in second trimester controlled on oral hypoglycemic drug Code(s): O24.415 - GESTATNL DIABETES IN PREG, CTRL BY ORAL HYPOGLYCEMIC DRUGS (8) Gestational diabetes mellitus (GDM) in third trimester controlled on oral hypoglycemic drug Code(s): O24.415 - GESTATNL DIABETES IN PREG, CTRL BY ORAL HYPOGLYCEMIC DRUGS (9) Acute chorioamnionitis Code(s): O41.1290 - CHORIOAMNIONITIS, UNSP TRIMESTER, NOT APPLICABLE OR UNSP (10) Failure of descent in labor, delivered, current hospitalization Code(s): O62.2 - OTHER UTERINE INERTIA (11) Status post primary low transverse section Code(s): Z98.891 - HISTORY OF UTERINE SCAR FROM PREVIOUS SURGERY (12) Bilateral pleural effusion Code(s): J90 - PLEURAL EFFUSION, NOT ELSEWHERE CLASSIFIED Assessment/Plan s/p primary c/s day #6, s/p ac chrioamnionitis. Bilateral Pleural Effusion With atelectasis , s/p ICU management, on PO lasix 40 mg bid severe anemia , s/p 2 pack cell units, rx po FeSo4 & vit Ac chlecystitis on rx IVzosyn , As per ID IV antibiotics to be contd for 3-4 days , but he will revaluate for Po antibiotics 7 discharge gdm, bgm are wnl, will stop checking bgm . HTN , no meds except Po lasiix as per Dr Willis ct managemnt as per Pum DR Marie & ID Dr Parrish , tavares Willis echocardigram official report pending ,
--- NOTE | 2017-01-20 12:05 | PN ---
Progress Note (short form) - Note Progress Note: PULMONARY Breathing continues to improve. +nonproductive cough with deep inspiration. No fevers or chills. Last Vital Signs Temp Pulse Resp BP Pulse Ox 97.9 F 50 L 18 159/81 98 01/20/17 10:00 01/20/17 10:00 01/20/17 10:00 01/20/17 10:00 01/20/17 09:00 Intake & Output 01/17/17 01/18/17 01/19/17 01/20/17 23:59 23:59 23:59 23:59 Intake Total 1980 960 600 200 Output Total 3400 5850 1200 900 Balance -1420 -4890 -600 -700 Weight 151 lb 9 oz 147 lb 7.828 oz 141 lb 8 oz Gen: NAD at rest Heart: RRR Lung: decreased breath sounds at the bases Abd: soft, nontender Ext: no edema CBC, BMP 01/20/17 07:25 01/20/17 07:25 Active Medications Acetaminophen (Tylenol -) 650 mg PO Q4H PRN PRN Reason: FEVER OR PAIN Last Admin: 01/19/17 21:54 Dose: 650 mg Albuterol Sulfate (Ventolin 0.083% Nebulizer Soln -) 1 amp NEB Q4H PRN PRN Reason: SHORT OF BREATH/WHEEZING Bisacodyl (Dulcolax Suppository -) 10 mg RC PRN PRN PRN Reason: CONSTIPATION Enoxaparin Sodium (Lovenox -) 40 mg SQ DAILY [facility] Last Admin: 01/20/17 10:05 Dose: 40 mg Ferrous Sulfate (Feosol -) 325 mg PO BID [facility] Last Admin: 01/20/17 10:05 Dose: 325 mg Furosemide (Lasix -) 40 mg PO BID@0600,1400 [facility] Last Admin: 01/20/17 06:04 Dose: 40 mg Piperacillin Sod/Tazobactam (Sod 4.5 gm/ Dextrose) 100 mls @ 200 mls/hr IVPB Q8H-IV [facility] Last Admin: 01/20/17 10:04 Dose: 200 mls/hr Ibuprofen (Motrin -) 600 mg PO Q4H PRN PRN Reason: PAIN Last Admin: 01/19/17 21:53 Dose: 600 mg Insulin Aspart (Novolog Vial Sliding Scale -) 1 vial SQ ACHS [facility]IK PRN Reason: Protocol Last Admin: 01/20/17 11:21 Dose: 2 units Methylergonovine Maleate (Methergine Injection -) 0.2 mg IM Q4H PRN PRN Reason: Excessive Bleeding (L&D) Ondansetron HCl (Zofran Injection) 4 mg IVPB Q4H PRN PRN Reason: NAUSEA AND/OR VOMITING Oxycodone HCl (Roxicodone -) 5 mg PO Q4H PRN PRN Reason: PAIN LEVEL 1-5 Oxycodone HCl (Roxicodone -) 10 mg PO Q4H PRN PRN Reason: PAIN LEVEL 6-10 Multivit/Folic Acid/Iron ( Vitamins (Sjr) -) 1 tab PO DAILY [facility] Last Admin: 01/20/17 10:05 Dose: 1 tab Ranitidine HCl (Zantac -) 150 mg PO BID [facility] Last Admin: 01/20/17 10:05 Dose: 150 mg Senna/Docusate Sodium (Pericolace -) 2 tablet PO HS PRN PRN Reason: CONSTIPATION Simethicone (Mylicon -) 80 mg PO Q4H PRN PRN Reason: GAS Last Admin: 01/19/17 21:55 Dose: 80 mg A/P s/p Acute Blood Loss Anemia s/p PRBC transfusions Acute Hypoxic Respiratory Failure likely due to Volume Overload r/o Post Cardiomyopathy Cholelithiasis r/o Cholecystitis - PO lasix, can likely change to daily dosing in AM or d/c, she will equilibrate on own as she has normal cardiac/renal function - monitor urine output, creatinine - keep net negative - empiric antibiotics per ID - monitor fever curve, WBC trend - monitor H/H - lower suspicion for PE as CXR grossly overloaded with large bilateral effusions, pt without tachycardia, hypoxia after diuresis and negative LE dopplers - pain control - incentive spirometry - DVT prophylaxis - will need outpt f/u of CXR in 6-8 weeks to ensure resolution of CXR findings
--- NOTE | 2017-01-20 13:34 | PN ---
Progress Note (short form) - Note Progress Note: Renal Follow up for Hypertension and volume overload Pt seen and examined at the bedside no acute complaints no sob, chest pain LE swelling is much improved good urine output Vital Signs Temperature 97.9 F 01/20/17 10:00 Pulse Rate 50 L 01/20/17 10:00 Respiratory Rate 18 01/20/17 10:00 Blood Pressure 159/81 01/20/17 10:00 O2 Sat by Pulse Oximetry (%) 98 01/20/17 09:00 Intake & Output 01/17/17 01/18/17 01/19/17 01/20/17 23:59 23:59 23:59 23:59 Intake Total 1980 960 600 200 Output Total 3400 5850 1200 900 Balance -0317 -0190 -600 -700 Weight 151 lb 9 oz 147 lb 7.828 oz 141 lb 8 oz Gen: NAD CVS: RRR Lungs: Dec BS at lung bases, no rales Abd: soft NT/ND Ext: Trace edema in B/L LE CBC, BMP 01/20/17 07:25 01/20/17 07:25 Current Medications Acetaminophen (Tylenol -) 650 mg PO Q4H PRN PRN Reason: FEVER OR PAIN Last Admin: 01/19/17 21:54 Dose: 650 mg Albuterol Sulfate (Ventolin 0.083% Nebulizer Soln -) 1 amp NEB Q4H PRN PRN Reason: SHORT OF BREATH/WHEEZING Bisacodyl (Dulcolax Suppository -) 10 mg RC PRN PRN PRN Reason: CONSTIPATION Enoxaparin Sodium (Lovenox -) 40 mg SQ DAILY [facility] Last Admin: 01/20/17 10:05 Dose: 40 mg Ferrous Sulfate (Feosol -) 325 mg PO BID [facility] Last Admin: 01/20/17 10:05 Dose: 325 mg Furosemide (Lasix -) 40 mg PO BID@0600,1400 [facility] Last Admin: 01/20/17 06:04 Dose: 40 mg Piperacillin Sod/Tazobactam (Sod 4.5 gm/ Dextrose) 100 mls @ 200 mls/hr IVPB Q8H-IV [facility] Last Admin: 01/20/17 10:04 Dose: 200 mls/hr Ibuprofen (Motrin -) 600 mg PO Q4H PRN PRN Reason: PAIN Last Admin: 01/19/17 21:53 Dose: 600 mg Insulin Aspart (Novolog Vial Sliding Scale -) 1 vial SQ ACHS [facility] PRN Reason: Protocol Last Admin: 01/20/17 11:21 Dose: 2 units Methylergonovine Maleate (Methergine Injection -) 0.2 mg IM Q4H PRN PRN Reason: Excessive Bleeding (L&D) Ondansetron HCl (Zofran Injection) 4 mg IVPB Q4H PRN PRN Reason: NAUSEA AND/OR VOMITING Oxycodone HCl (Roxicodone -) 5 mg PO Q4H PRN PRN Reason: PAIN LEVEL 1-5 Oxycodone HCl (Roxicodone -) 10 mg PO Q4H PRN PRN Reason: PAIN LEVEL 6-10 Multivit/Folic Acid/Iron ( Vitamins (Sjr) -) 1 tab PO DAILY [facility] Last Admin: 01/20/17 10:05 Dose: 1 tab Ranitidine HCl (Zantac -) 150 mg PO BID [facility] Last Admin: 01/20/17 10:05 Dose: 150 mg Senna/Docusate Sodium (Pericolace -) 2 tablet PO HS PRN PRN Reason: CONSTIPATION Simethicone (Mylicon -) 80 mg PO Q4H PRN PRN Reason: GAS Last Admin: 01/19/17 21:55 Dose: 80 mg A/P 26 year old woman with PMhx of Asthma s/p C-scetion after her first complicated by Cholecystitis with SOB/volume overload and Hypertension following delivery. # Hypertension likely due to volume expansion +/- induced hypertension vs. HELLP/Preeclampsia LFT's are WNL, No proteinuria on UA Plt are clumped on CBC Will send repeat Plt count in heparnized tube less likely HELLP/Preeclampsia can d/c Lasix after todays afternoon dose Trend BP can plan for D/c In AM if BP is stable and plts counts are stable #Cholecystitis on Abx at the present time ? duration of Abx and pt pt to have surgical intervention Surgical follow up Wesley Willis DO
--- NOTE | 2017-01-20 14:23 | PATH ---
Surgical Pathology Report Patient Name: TATI CAMILO Med. Rec. #: [id number] /Age/Gender: 1990 (Age: 26) / F Account: [id number] Location: [facility] OBS/FICTION AND NONFICTION PROSE WRITER Taken: 01/14/2017 Received: 01/17/2017 Reported: 01/20/2017 Physicians: Kristel Kaur M.D. Specimen(s) Received PLACENTA Clinical History 38.4 weeks in active labor, failure to descend History of asthma, anemia, gestational diabetes-po Meds, history of cholecystitis Chorionitis Final Diagnosis PLACENTA, DELIVERY: FOCALLY DISRUPTED THIRD TRIMESTER PLACENTA WITH THREE VESSEL UMBILICAL CORD AND MECONIUM HISTIOCYTOSIS OF PLACENTAL MEMBRANES. Electronically Signed Kj Islas M.D. Gross Description The specimen is received fresh labeled placenta and is a 607 gram, 19.5 x 17.5 x 2.7 cm. placenta with attached membranes and umbilical cord. The attached membranes are smith green, meconium stained, translucent with focal opacities and insert marginally. The umbilical cord measures 12 cm. in length and averages 1.2 cm. in diameter. The cord inserts eccentrically, 4 cm. to the nearest margin. No true knots or strictures are identified. Cut surface of the umbilical cord reveals 3 vessels. The surface is kirkland green, meconium stained with minimal fibrin deposition and appropriate caliber vessels. The maternal surface is red-brown with focal defects. Sectioning reveals red-brown, spongy parenchyma. No lesions are identified. Director Business sections are submitted in three cassettes as follows: 1- membrane rolls and umbilical cord; 2-3- full thickness sections of placenta. /01/19/201701/19/2017
--- NOTE | 2017-01-20 16:08 | PN ---
Progress Note, Physician History of Present Illness: patient doing much better no new issues - Current Medication List Current Medications: Active Medications Acetaminophen (Tylenol -) 650 mg PO Q4H PRN PRN Reason: FEVER OR PAIN Last Admin: 01/19/17 21:54 Dose: 650 mg Albuterol Sulfate (Ventolin 0.083% Nebulizer Soln -) 1 amp NEB Q4H PRN PRN Reason: SHORT OF BREATH/WHEEZING Bisacodyl (Dulcolax Suppository -) 10 mg RC PRN PRN PRN Reason: CONSTIPATION Last Admin: 01/20/17 14:49 Dose: 10 mg Enoxaparin Sodium (Lovenox -) 40 mg SQ DAILY [facility] Last Admin: 01/20/17 10:05 Dose: 40 mg Ferrous Sulfate (Feosol -) 325 mg PO BID [facility] Last Admin: 01/20/17 10:05 Dose: 325 mg Furosemide (Lasix -) 40 mg PO BID@0600,1400 [facility] Last Admin: 01/20/17 13:47 Dose: 40 mg Piperacillin Sod/Tazobactam (Sod 4.5 gm/ Dextrose) 100 mls @ 200 mls/hr IVPB Q8H-IV [facility] Last Admin: 01/20/17 10:04 Dose: 200 mls/hr Ibuprofen (Motrin -) 600 mg PO Q4H PRN PRN Reason: PAIN Last Admin: 01/19/17 21:53 Dose: 600 mg Methylergonovine Maleate (Methergine Injection -) 0.2 mg IM Q4H PRN PRN Reason: Excessive Bleeding (L&D) Ondansetron HCl (Zofran Injection) 4 mg IVPB Q4H PRN PRN Reason: NAUSEA AND/OR VOMITING Oxycodone HCl (Roxicodone -) 5 mg PO Q4H PRN PRN Reason: PAIN LEVEL 1-5 Oxycodone HCl (Roxicodone -) 10 mg PO Q4H PRN PRN Reason: PAIN LEVEL 6-10 Multivit/Folic Acid/Iron ( Vitamins (Sjr) -) 1 tab PO DAILY [facility] Last Admin: 01/20/17 10:05 Dose: 1 tab Ranitidine HCl (Zantac -) 150 mg PO BID [facility] Last Admin: 01/20/17 10:05 Dose: 150 mg Senna/Docusate Sodium (Pericolace -) 2 tablet PO HS PRN PRN Reason: CONSTIPATION Simethicone (Mylicon -) 80 mg PO Q4H PRN PRN Reason: GAS Last Admin: 01/19/17 21:55 Dose: 80 mg - Objective Vital Signs: Vital Signs Temperature 98.3 F 01/20/17 13:54 Pulse Rate 63 01/20/17 13:54 Respiratory Rate 18 01/20/17 13:54 Blood Pressure 141/81 01/20/17 13:54 O2 Sat by Pulse Oximetry (%) 98 01/20/17 09:00 Constitutional: Yes: No Distress, Calm Cardiovascular: Yes: Regular Rate and Rhythm Respiratory: Yes: Regular, CTA Bilaterally Gastrointestinal: Yes: Normal Bowel Sounds, Soft Musculoskeletal: Yes: WNL Extremities: Yes: WNL Neurological: Yes: Alert, Oriented Psychiatric: Yes: Alert Labs: CBC, BMP 01/20/17 07:25 01/20/17 07:25 INR, PTT INR 0.95 (0.82-1.09) 01/14/17 05:45 Assessment/Plan patient currently stable post c section cardiomyopathy ac blood loss ac choleycystitis hypoxia pleural effusion leukocytosis plan continue current abx monitor abd pain wbc trending down
--- NOTE | 2017-01-20 16:43 | PN ---
Progress Note (short form) - Note Progress Note: Attending Surgeon no c/o; breathing better; tolerating diet VSS AF abdomen-benign bili nl LFT's almost normalized WBC 12.4 IMP: improved PLAN: Will nned outpt. elective lap thad once CXR findings resolve; advised about dietary restrictions; a/a/u by the patient to f/u in my office as an outpt. Giovanni Huynh MD FACS
[2017-01-20] MEDS: ACETAMINOPHEN 325 MG TABLET (FP) PO PRN (18:05)
[2017-01-20] MEDS: IBUPROFEN 600 MG TABLET (FP) PO PRN (18:06)
[2017-01-20] MEDS: PIPERACILLIN/TAZOB 3.375 GM 50 ML IVPB SCH (18:07)
[2017-01-20] MEDS: SIMETHICONE 80 MG TAB.CHEW (FP) PO PRN (18:07)
[2017-01-20] MEDS: SENNOSIDES/DOCUSATE COMBO (SENNA PLUS) TABLET (UD) PO PRN (22:12)
[2017-01-21] MEDS: PIPERACILLIN/TAZOB 3.375 GM 50 ML IVPB SCH ×3 (02:03→18:19)
[2017-01-21] MEDS: FUROSEMIDE 40 MG TABLET (FP) PO SCH ×2 (05:39→14:22)
--- NOTE | 2017-01-21 07:48 | PN ---
Progress Note (short form) - Note Progress Note: s/p c/s . sepsis , cholilithiasis doing well, no n/v. tolerating diet . CBC, BMP 01/20/17 07:25 01/20/17 07:25 Last Vital Signs Temp Pulse Resp BP Pulse Ox 98.1 F 53 L 18 140/87 98 01/21/17 05:41 01/21/17 05:41 01/21/17 05:41 01/21/17 05:41 01/20/17 09:00 abdomen soft, no distension, no cva, BS present incision dry, clean , healing well no calf tenderness plan cont antibiotics, cbc
[2017-01-21] MEDS: FERROUS SO4 325 MG TABLET (FP) PO SCH ×2 (09:34→21:23)
[2017-01-21] MEDS: PRENATAL VITAMINS W/ FOLIC ACID TABLET (FP) PO SCH (09:34)
[2017-01-21] MEDS: ENOXAPARIN NA (PORCINE) 40 MG/0.4 ML DISP.SYRIN SQ SCH (09:34)
[2017-01-21] MEDS: RANITIDINE HCL 150 MG TABLET (FP) PO SCH ×2 (09:34→21:23)
[2017-01-21 09:48] LABS: ANION GAP 11 (8-16); CALCIUM 8.4 mg/dL (8.5-10.1); CO2 22 mmol/L (21-32); CREATININE 0.6 mg/dL (0.55-1.02); GLUCOSE,RANDOM 63 mg/dL (74-106)
[2017-01-21 10:22] LABS: BASOPHIL 0.7 % (0-2.0); EOSINOPHIL 3.6 % (0-4.5); MCH 23.2 pg (25.7-33.7); MCHC 31.3 g/dl (32.0-36.0); MEAN CELL VOLUME 74.1 fl (80-96); MEAN PLT VOLUME 9.3 fl (7.5-11.1); RDW 22.5 % (11.6-15.6); WHITE BLOOD COUNT 15.1 K/mm3 (4.0-10.0)
--- NOTE | 2017-01-21 10:43 | PN ---
Teaching Attending Note Name of Resident: Biranna Leon ATTENDING PHYSICIAN STATEMENT I saw and evaluated the patient. I reviewed the resident's note and discussed the case with the resident. I agree with the resident's findings and plan as documented. SUBJECTIVE: no SOB , no chest pain , no leg edema , no abdominal pain OBJECTIVE: Vital Signs Temperature 98.1 F 01/21/17 05:41 Pulse Rate 53 L 01/21/17 05:41 Respiratory Rate 18 01/21/17 05:41 Blood Pressure 140/87 01/21/17 05:41 O2 Sat by Pulse Oximetry (%) 98 01/20/17 09:00 Constitutional: Yes: No Distress, Calm Cardiovascular: Yes: Regular Rate and Rhythm Respiratory: Yes: Regular, CTA Bilaterally Gastrointestinal: Yes: Normal Bowel Sounds, Soft Musculoskeletal: Yes: WNL Extremities: Yes: WNL Neurological: Yes: Alert, Oriented Psychiatric: Yes: Alert CBC, BMP 01/21/17 07:30 01/21/17 07:30 ASSESSMENT AND PLAN: 26 year old female 6 days post c section that developed hypoxia 1. Respiratory failure - This was likely multifactorial and caused by combination of fluid overload, uncontrolled HTN , b/l atelectasis and diastolic dysfunction. maintaining negative fluid balance . Asympthomatic. Discontinue lasix She will need to follow up in 1 month with crosscutter rolled glass to repeat echo 2. Acute cholecystitis - abdominal pain resolved , she has been managed conservatively with IV antibiotics however needs cholecystetomy. Medically optimised for procedure assuming there are no contraindications from MICROPALEONTOLOGIST stand point 4 Uncontrolled HTN - no evidence of proteinuria, possibly newly diagnosed HTN consider starting low dose procardia upon discharge
[2017-01-21 12:06] LABS: PLATELET ESTIMATE ADEQUATE (NORMAL)
[2017-01-21 12:07] LABS: PLATELET COMMENT2 FEW GIANT PLTS
--- NOTE | 2017-01-21 14:12 | PN ---
Progress Note, Physician History of Present Illness: PULMONARY ALERT,NAD,-SOB. - Current Medication List Current Medications: Active Medications Acetaminophen (Tylenol -) 650 mg PO Q4H PRN PRN Reason: FEVER OR PAIN Last Admin: 01/20/17 18:05 Dose: 650 mg Albuterol Sulfate (Ventolin 0.083% Nebulizer Soln -) 1 amp NEB Q4H PRN PRN Reason: SHORT OF BREATH/WHEEZING Bisacodyl (Dulcolax Suppository -) 10 mg RC PRN PRN PRN Reason: CONSTIPATION Last Admin: 01/20/17 14:49 Dose: 10 mg Enoxaparin Sodium (Lovenox -) 40 mg SQ DAILY [facility] Last Admin: 01/21/17 09:34 Dose: 40 mg Ferrous Sulfate (Feosol -) 325 mg PO BID [facility] Last Admin: 01/21/17 09:34 Dose: 325 mg Furosemide (Lasix -) 40 mg PO BID@0600,1400 [facility] Last Admin: 01/21/17 05:39 Dose: 40 mg Piperacillin Sod/Tazobactam Sod (Zosyn 3.375gm Ivpb (Pre-Docked)) 50 mls @ 100 mls/hr IVPB Q8H-IV [facility] PRN Reason: Protocol Last Admin: 01/21/17 09:34 Dose: 100 mls/hr Ibuprofen (Motrin -) 600 mg PO Q4H PRN PRN Reason: PAIN Last Admin: 01/20/17 18:06 Dose: 600 mg Methylergonovine Maleate (Methergine Injection -) 0.2 mg IM Q4H PRN PRN Reason: Excessive Bleeding (L&D) Ondansetron HCl (Zofran Injection) 4 mg IVPB Q4H PRN PRN Reason: NAUSEA AND/OR VOMITING Oxycodone HCl (Roxicodone -) 5 mg PO Q4H PRN PRN Reason: PAIN LEVEL 1-5 Oxycodone HCl (Roxicodone -) 10 mg PO Q4H PRN PRN Reason: PAIN LEVEL 6-10 Multivit/Folic Acid/Iron ( Vitamins (Sjr) -) 1 tab PO DAILY [facility] Last Admin: 01/21/17 09:34 Dose: 1 tab Ranitidine HCl (Zantac -) 150 mg PO BID [facility] Last Admin: 01/21/17 09:34 Dose: 150 mg Senna/Docusate Sodium (Pericolace -) 2 tablet PO HS PRN PRN Reason: CONSTIPATION Last Admin: 01/20/17 22:12 Dose: 2 tablet Simethicone (Mylicon -) 80 mg PO Q4H PRN PRN Reason: GAS Last Admin: 01/20/17 18:07 Dose: 80 mg - Objective Vital Signs: Vital Signs Temperature 98.7 F 01/21/17 13:28 Pulse Rate 100 H 01/21/17 13:28 Respiratory Rate 20 01/21/17 13:28 Blood Pressure 127/62 01/21/17 13:28 O2 Sat by Pulse Oximetry (%) 98 01/21/17 11:46 Constitutional: Yes: Well Nourished, Calm Eyes: Yes: WNL HENT: Yes: WNL Neck: Yes: WNL Cardiovascular: Yes: Regular Rate and Rhythm, S1, S2 Respiratory: Yes: CTA Bilaterally Gastrointestinal: Yes: Normal Bowel Sounds, Soft Extremities: Yes: WNL Edema: No Labs: CBC, BMP 01/21/17 07:30 01/21/17 07:30 INR, PTT INR 0.95 (0.82-1.09) 01/14/17 05:45 Problem List - Problems (1) Bilateral pleural effusion Code(s): J90 - PLEURAL EFFUSION, NOT ELSEWHERE CLASSIFIED (2) Fluid overload Code(s): E87.70 - FLUID OVERLOAD, UNSPECIFIED (3) SOB (shortness of breath) Code(s): R06.02 - SHORTNESS OF BREATH (4) Status post primary low transverse section Code(s): Z98.891 - HISTORY OF UTERINE SCAR FROM PREVIOUS SURGERY Assessment/Plan A/P s/p S/P Acute Blood Loss Anemia s/p PRBC transfusions S/P Acute Hypoxic Respiratory Failure likely due to Volume Overload r/o Post Cardiomyopathy Cholelithiasis r/o Cholecystitis - antibiotics as per ID - pain control - incentive spirometry - DVT prophylaxis - will need outpt f/u of CXR in 6-8 weeks to ensure resolution of CXR findings DR CARMEN
--- NOTE | 2017-01-21 15:49 | PN ---
Progress Note, Physician History of Present Illness: doing much better no complaints no pain - Current Medication List Current Medications: Active Medications Acetaminophen (Tylenol -) 650 mg PO Q4H PRN PRN Reason: FEVER OR PAIN Last Admin: 01/20/17 18:05 Dose: 650 mg Albuterol Sulfate (Ventolin 0.083% Nebulizer Soln -) 1 amp NEB Q4H PRN PRN Reason: SHORT OF BREATH/WHEEZING Bisacodyl (Dulcolax Suppository -) 10 mg RC PRN PRN PRN Reason: CONSTIPATION Last Admin: 01/20/17 14:49 Dose: 10 mg Enoxaparin Sodium (Lovenox -) 40 mg SQ DAILY [facility] Last Admin: 01/21/17 09:34 Dose: 40 mg Ferrous Sulfate (Feosol -) 325 mg PO BID [facility] Last Admin: 01/21/17 09:34 Dose: 325 mg Furosemide (Lasix -) 40 mg PO BID@0600,1400 [facility] Last Admin: 01/21/17 14:22 Dose: 40 mg Piperacillin Sod/Tazobactam Sod (Zosyn 3.375gm Ivpb (Pre-Docked)) 50 mls @ 100 mls/hr IVPB Q8H-IV [facility] PRN Reason: Protocol Last Admin: 01/21/17 09:34 Dose: 100 mls/hr Ibuprofen (Motrin -) 600 mg PO Q4H PRN PRN Reason: PAIN Last Admin: 01/20/17 18:06 Dose: 600 mg Methylergonovine Maleate (Methergine Injection -) 0.2 mg IM Q4H PRN PRN Reason: Excessive Bleeding (L&D) Ondansetron HCl (Zofran Injection) 4 mg IVPB Q4H PRN PRN Reason: NAUSEA AND/OR VOMITING Oxycodone HCl (Roxicodone -) 5 mg PO Q4H PRN PRN Reason: PAIN LEVEL 1-5 Oxycodone HCl (Roxicodone -) 10 mg PO Q4H PRN PRN Reason: PAIN LEVEL 6-10 Multivit/Folic Acid/Iron ( Vitamins (Sjr) -) 1 tab PO DAILY [facility] Last Admin: 01/21/17 09:34 Dose: 1 tab Ranitidine HCl (Zantac -) 150 mg PO BID [facility] Last Admin: 01/21/17 09:34 Dose: 150 mg Senna/Docusate Sodium (Pericolace -) 2 tablet PO HS PRN PRN Reason: CONSTIPATION Last Admin: 01/20/17 22:12 Dose: 2 tablet Simethicone (Mylicon -) 80 mg PO Q4H PRN PRN Reason: GAS Last Admin: 01/20/17 18:07 Dose: 80 mg - Objective Vital Signs: Vital Signs Temperature 98.7 F 01/21/17 13:28 Pulse Rate 100 H 01/21/17 13:28 Respiratory Rate 20 01/21/17 13:28 Blood Pressure 127/62 01/21/17 13:28 O2 Sat by Pulse Oximetry (%) 98 01/21/17 11:46 Constitutional: Yes: No Distress, Calm Cardiovascular: Yes: Regular Rate and Rhythm Respiratory: Yes: Regular, CTA Bilaterally Gastrointestinal: Yes: Normal Bowel Sounds, Soft Musculoskeletal: Yes: WNL Extremities: Yes: WNL Neurological: Yes: Alert, Oriented Psychiatric: Yes: Alert, Oriented Labs: CBC, BMP 01/21/17 07:30 01/21/17 07:30 INR, PTT INR 0.95 (0.82-1.09) 01/14/17 05:45 Assessment/Plan patient currently stable post c section cardiomyopathy ac blood loss ac choleycystitis hypoxia pleural effusion leukocytosis plan continue current abx will stop it tomorrow if patient continues to do well rest as per the team
--- NOTE | 2017-01-21 16:59 | DS ---
Physical Exam-SHIP/REC/DOC CONTROL Vital Signs: Vital Signs Temperature 98.7 F 01/21/17 13:28 Pulse Rate 100 H 01/21/17 13:28 Respiratory Rate 20 01/21/17 13:28 Blood Pressure 127/62 01/21/17 13:28 O2 Sat by Pulse Oximetry (%) 98 01/21/17 11:46 Selected Entries 01/22/17 17:00 Temperature 98.9 F Pulse Rate 80 Blood Pressure 136/86 Constitutional: Yes: Calm, Pallor Eyes: Yes: WNL HENT: Yes: WNL, Normocephalic Neck: Yes: WNL Cardiovascular: Yes: WNL, Regular Rate and Rhythm Respiratory: Yes: WNL, CTA Bilaterally (bases diminished air entry), Poor Air Entry (at bases), Other (s/p treatment for Bilateral Pleural effusion upto mid lung field) Gastrointestinal: Yes: WNL, Normal Bowel Sounds, Other (gall stones. s/p cholecystitis on iv zozyn). No: Tenderness, Epigastrium, Tenderness, Rebound, Vomiting Renal/: Yes: WNL, Other (voiding without difficulty) ....Post : Yes: Uterus firm, Uterus non-tender, Slight lochia rubra Breast(s): Yes: WNL Musculoskeletal: Yes: WNL Extremities: Yes: WNL. No: Calf Tenderness Edema: No Integumentary: Yes: WNL Wound/Incision: Yes: Clean/Dry, Steri Strips, [place] Removed. No: Reddened, Bleeding Neurological: Yes: WNL, Alert, Oriented ...Motor Strength: WNL Psychiatric: Yes: WNL Labs: CBC, BMP 01/21/17 07:30 01/21/17 07:30 Laboratory Tests 01/20/17 01/20/17 07:25 14:47 POC Glucometer 100 AST 17 D ALT 19 Delivery - Delivery Section: Primary, Low Flap Transverse (38.4 weeks, Ac Chorioamnionitis , Failure of descent in 2nd stage of labor) Type of Anesthesia: Epidural Episiotomy/Laceration: None EBL (cc): 600 (300 ml nathalie color urine ) Delivery, Single - Stages of Labor Date 1st Stage Initiatied: 01/14/17 Time 1st Stage Initiated: 00:30 Date 2nd Stage Initiated: 01/14/17 Time 2nd Stage Initiated: 19:40 Date of Delivery: 01/14/17 Time of Delivery: 21:49 Time Placenta Delivered: 21:50 Placenta: Yes: Manual Removal, Uterine Exploration - 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 stadol + phenergan followed by epidural for labor analgesia used Pitocin augmentation given Intrapartum Tmax 101, rx IV Tylenol 1000 mg , IV ampicillin 2 gm followed by 1 gm preop was given tachycardia noted 180 , hence trial of labor abandoned , Intraop prophylactically 40 iu pitocin & Methergine im was given transferred to NICU . Iv gentamicin post op in RR is given . post op day#2, hgb 6.8, rx 2 pack cell transfusion were given post op day #3, c/o sob, , chest xray , ct scan done , hospitalist consult in PM obtained, Bilateral Pleural Transfusion diagnosed pt transferred to ICU pod #3 in pm until po day #5 during noon transferred back to floor Treated with lasix , fluid overload treated, intake restriction was done GDM Bgm monitored emperically placed on Heparin 5000 iu tid in icu , , PE rulred out , she was placed on Lovenox sq Ac cholecystitis suspected due to abd ct scan showed pericholic fluid , iv ampicillin & gentamicin was d/charli , placed on IV Zosyn pod #3 until poday #8 She is discharged on Po Augmentin bid x 7 days counselled for anemia , rx po irin & pnv counselled for diet 7 fluid intake pt is instructed to continue incemtive spiromery at home, will follow by chest xray in 6 weeks she will follow with Gen surgeon in 6 weeks for gall stones Discharge 01/22/17 Discharge Summary Reason For Visit: LABOR ADMIT Current Active Problems 38 to 41 weeks gestation of (Acute) Abdominal pain (Acute) Acute chorioamnionitis (Acute) Anemia (Acute) Bilateral pleural effusion (Acute) Cholelithiasis (Acute) Cholelithiasis affecting in third trimester, antepartum (Acute) Failure of descent in labor, delivered, current hospitalization (Acute) Fluid overload (Acute) Gestational diabetes mellitus (GDM) controlled on oral hypoglycemic drug (Acute ) Gestational diabetes mellitus (GDM) in second trimester controlled on oral hypoglycemic drug (Acute) Gestational diabetes mellitus (GDM) in third trimester controlled on oral hypoglycemic drug (Acute) Labor established (Acute) SOB (shortness of breath) (Acute) Status post primary low transverse section (Acute) Condition: Stable - Instructions Diet, Activity, Other Instructions: Post Instructions DIET: Continue good diet high in protein, calcium, and iron rich foods. Drink at least eight (8) glasses of water daily in addition to other fluids. ___ Regular diet, preferably, no fat, , not spicy ,food, small frequent meals MEDICATIONS: Continue vitamins and iron as previously directed. Motrin and Tylenol may be taken for minor discomfort. ACTIVITY: Mild to moderate exercise may be started in two (2) weeks. Take frequent rest periods. Resume normal activity after six (6) week check up. WOUND CARE OF OPERATIVE SITE: Continue use of perineal bottle until vaginal discharge stops. Keep area clean. Shower daily. Keep abdominal wound dry. Report any drainage or redness to physician. Tub baths, tampons and douches are not permitted for [address] Breast feeding & or Bottle feeding BREAST CARE: (For those that are not ): If engorgement occurs: Wear tight fitting bra. Take Tylenol or Motrin for pain. Apply cold packs (ice in bags to each breast ) FAMILY PLANNING: There are many control alternatives to pursue and they should be discussed at your first office visit. You may resume sexual activity after your six (6) week check up. (Remember, breast feeding is not a contraceptive) NEXT PHYSICIAN APPOINTMENT: Be certain to call for a one (1) week appointment, unless otherwise directed. wound check Repeat CBC in 4 weeks .for anemia follow up Repeat Chest XRay in 6 weeks to follow for pleural effusion Referal to General surgeon for Gall stones in 6 weeks post Call Clinic or got to Emergency Dept if you have any of the following: Heavy vaginal bleeding Painful urination Leg pain Unusual odor noted to vaginal bleeding High fever Red streaking noted on breast Referrals: Kristel Kaur MD [Staff Physician] - Disposition: HOME - Home Medications Comprehensive Discharge Medication List: Ambulatory Orders Vitamins (Sjr) - 1 tab PO DAILY 01/13/17 Acetaminophen [Tylenol .Regular Strength -] 500 mg PO Q4H PRN #30 tablet Albuterol Sulfate Inhaler - [Ventolin HFA Inhaler -] 1 puff IH Q4H PRN #1 inhaler 01/21/17 Amox-Tr/K Cl [Augmentin - 875Mg Tablet] 1 tab PO BID #14 tablet 01/21/17 Ferrous Sulfate [Feosol] 325 mg PO BID #60 tab 01/21/17 Vitamins (Sjr) - 1 tab PO DAILY #60 tablet 01/21/17
--- NOTE | 2017-01-21 18:49 | PN ---
Progress Note, Physician Chief Complaint: The patient seen in her bed . Family 26 year old woman with PM hx of Asthma s/p after her first complicated by Cholecystitis with SOB/volume overload and Hypertension following delivery. The patient not on AntiHypertensives. The BP is mostly in acceptable range, except occasional spikes. The Gall bladder may have to be removed in the future. If discharged in AM, we shall f/u in our office in 1 week. The patient asked to avoid NSAIDs and high Sodium meals. Thanks again. Dyana Catherine MD - Current Medication List Current Medications: Active Medications Acetaminophen (Tylenol -) 650 mg PO Q4H PRN PRN Reason: FEVER OR PAIN Last Admin: 01/20/17 18:05 Dose: 650 mg Albuterol Sulfate (Ventolin 0.083% Nebulizer Soln -) 1 amp NEB Q4H PRN PRN Reason: SHORT OF BREATH/WHEEZING Bisacodyl (Dulcolax Suppository -) 10 mg RC PRN PRN PRN Reason: CONSTIPATION Last Admin: 01/20/17 14:49 Dose: 10 mg Enoxaparin Sodium (Lovenox -) 40 mg SQ DAILY [facility] Last Admin: 01/21/17 09:34 Dose: 40 mg Ferrous Sulfate (Feosol -) 325 mg PO BID [facility] Last Admin: 01/21/17 09:34 Dose: 325 mg Furosemide (Lasix -) 40 mg PO BID@0600,1400 [facility] Last Admin: 01/21/17 14:22 Dose: 40 mg Piperacillin Sod/Tazobactam Sod (Zosyn 3.375gm Ivpb (Pre-Docked)) 50 mls @ 100 mls/hr IVPB Q8H-IV [facility] PRN Reason: Protocol Last Admin: 01/21/17 18:19 Dose: 100 mls/hr Ibuprofen (Motrin -) 600 mg PO Q4H PRN PRN Reason: PAIN Last Admin: 01/20/17 18:06 Dose: 600 mg Methylergonovine Maleate (Methergine Injection -) 0.2 mg IM Q4H PRN PRN Reason: Excessive Bleeding (L&D) Ondansetron HCl (Zofran Injection) 4 mg IVPB Q4H PRN PRN Reason: NAUSEA AND/OR VOMITING Oxycodone HCl (Roxicodone -) 5 mg PO Q4H PRN PRN Reason: PAIN LEVEL 1-5 Oxycodone HCl (Roxicodone -) 10 mg PO Q4H PRN PRN Reason: PAIN LEVEL 6-10 Multivit/Folic Acid/Iron ( Vitamins (Sjr) -) 1 tab PO DAILY [facility] Last Admin: 01/21/17 09:34 Dose: 1 tab Ranitidine HCl (Zantac -) 150 mg PO BID [facility] Last Admin: 01/21/17 09:34 Dose: 150 mg Senna/Docusate Sodium (Pericolace -) 2 tablet PO HS PRN PRN Reason: CONSTIPATION Last Admin: 01/20/17 22:12 Dose: 2 tablet Simethicone (Mylicon -) 80 mg PO Q4H PRN PRN Reason: GAS Last Admin: 01/20/17 18:07 Dose: 80 mg - Objective Vital Signs: Vital Signs Temperature 98.7 F 01/21/17 13:28 Pulse Rate 100 H 01/21/17 13:28 Respiratory Rate 20 01/21/17 13:28 Blood Pressure 127/62 01/21/17 13:28 O2 Sat by Pulse Oximetry (%) 98 01/21/17 11:46 Labs: CBC, BMP 01/21/17 07:30 01/21/17 07:30 INR, PTT INR 0.95 (0.82-1.09) 01/14/17 05:45
--- NOTE | 2017-01-21 19:11 | PN ---
Physical Exam: SUBJECTIVE: Patient seen and examined this morning. No acute events overnight. Patient resting comfortably. Denies any chest pain, abdominal pain, shortness of breath, or extremity pain. OBJECTIVE: Vital Signs Period Temp Pulse Resp BP Sys/Naik Pulse Ox Last 24 Hr 98.1 F-99.1 F 52-100 18-20 127-156/62-90 98-99 GENERAL: The patient is awake, alert, and fully oriented, in no acute distress. HEAD: Normal with no signs of trauma. EYES: PERRL, extraocular movements intact, sclera anicteric, conjunctiva clear. No ptosis. ENT: Ears normal, nares patent, oropharynx clear without exudates, moist mucous membranes. NECK: Trachea midline, full range of motion, supple. LUNGS: decreased breath sounds in lower lobes but improved HEART: Regular rate and rhythm, S1, S2 without murmur, rub or gallop. ABDOMEN: Soft, nontender, nondistended, normoactive bowel sounds, no guarding, no rebound, no hepatosplenomegaly, no masses. EXTREMITIES: 2+ posterior tibial pulses, warm, well-perfused, no edema. NEUROLOGICAL: Cranial nerves II through XII grossly intact. Laboratory Results - last 24 hr 01/21/17 01/21/17 07:30 07:30 WBC 15.1 H RBC 4.35 Hgb 10.1 L Hct 32.2 L MCV 74.1 L MCH 23.2 L MCHC 31.3 L RDW 22.5 H Plt Count No Result Required. MPV 9.3 Neutrophils % 72.0 Lymphocytes % 15.8 D Monocytes % 7.9 Eosinophils % 3.6 Basophils % 0.7 D Platelet Estimate Adequate Platelet Comment Few giant plts Sodium 137 Potassium 4.5 Chloride 104 Carbon Dioxide 22 Anion Gap 11 BUN 11 Creatinine 0.6 Random Glucose 63 L Calcium 8.4 L Active Medications Generic Name Dose Route Start Last Admin Trade Name Freq PRN Reason Stop Dose Admin Acetaminophen 650 mg 01/19/17 11:20 01/20/17 18:05 Tylenol - PO 650 mg Q4H PRN Administration FEVER OR PAIN Albuterol Sulfate 1 amp 01/19/17 11:20 Ventolin 0.083% Nebulizer Soln - NEB Q4H PRN SHORT OF BREATH/WHEEZING Bisacodyl 10 mg 01/19/17 11:20 01/20/17 14:49 Dulcolax Suppository - RC 10 mg PRN PRN Administration CONSTIPATION Enoxaparin Sodium 40 mg 01/20/17 10:00 01/21/17 09:34 Lovenox - SQ 40 mg DAILY [facility] Administration Ferrous Sulfate 325 mg 01/19/17 22:00 01/21/17 09:34 Feosol - PO 325 mg BID [facility] Administration Furosemide 40 mg 01/19/17 14:00 01/21/17 14:22 Lasix - PO 40 mg BID@0600,1400 [facility] Administration Piperacillin Sod/Tazobactam Sod 50 mls @ 100 mls/hr 01/20/17 18:00 01/21/17 18: 19 Zosyn 3.375gm Ivpb (Pre-Docked) IVPB 100 mls/hr Q8H-IV [facility] Administration Protocol Ibuprofen 600 mg 01/19/17 11:20 01/20/17 18:06 Motrin - PO 600 mg Q4H PRN Administration PAIN Methylergonovine Maleate 0.2 mg 01/19/17 11:20 Methergine Injection - IM Q4H PRN Excessive Bleeding (L&D) Ondansetron HCl 4 mg 01/19/17 11:20 Zofran Injection IVPB Q4H PRN NAUSEA AND/OR VOMITING Oxycodone HCl 5 mg 01/19/17 11:20 Roxicodone - PO Q4H PRN PAIN LEVEL 1-5 Oxycodone HCl 10 mg 01/19/17 11:20 Roxicodone - PO Q4H PRN PAIN LEVEL 6-10 Multivit/Folic Acid/Iron 1 tab 01/20/17 10:00 01/21/17 09:34 Vitamins (Sjr) - PO 1 tab DAILY [facility] Administration Ranitidine HCl 150 mg 01/19/17 22:00 01/21/17 09:34 Zantac - PO 150 mg BID [facility] Administration Senna/Docusate Sodium 2 tablet 01/19/17 11:20 01/20/17 22:12 Pericolace - PO 2 tablet HS PRN Administration CONSTIPATION Simethicone 80 mg 01/19/17 11:20 01/20/17 18:07 Mylicon - PO 80 mg Q4H PRN Administration GAS ASSESSMENT/PLAN: This is a 26 year old F with PMH of asthma, cholelithiasis, POD 7 s/p c section complicated by hemorrhage (which required 2 units of PRBCs), who developed respiratory distress. Medicine team consulted for shortness of breath. 1. Hypoxia: -Recommend d/c lasix 2. Acute cholecystitis: -Resolved sepsis and leukocytosis -F/u cholecystectomy electively - discuss with PCP as outpatient 4 Uncontrolled HTN - -as per cardio, low dose procardia upon discharge Thank you for this consult, reconsult as necessary. Visit type - Emergency Visit Emergency Visit: No - New Patient This patient is new to me today: No - Critical Care Critical Care patient: No
[2017-01-21] MEDS: SENNOSIDES/DOCUSATE COMBO (SENNA PLUS) TABLET (UD) PO PRN (21:24)
[2017-01-21] MEDS: IBUPROFEN 600 MG TABLET (FP) PO PRN (21:25)
[2017-01-21] MEDS: SIMETHICONE 80 MG TAB.CHEW (FP) PO PRN (21:25)
[2017-01-21] MEDS: ACETAMINOPHEN 325 MG TABLET (FP) PO PRN (21:26)
[2017-01-22] MEDS: PIPERACILLIN/TAZOB 3.375 GM 50 ML IVPB SCH ×3 (01:44→17:12)
[2017-01-22] MEDS: FUROSEMIDE 40 MG TABLET (FP) PO SCH (05:39)
[2017-01-22] MEDS: PRENATAL VITAMINS W/ FOLIC ACID TABLET (FP) PO SCH (09:32)
[2017-01-22] MEDS: ENOXAPARIN NA (PORCINE) 40 MG/0.4 ML DISP.SYRIN SQ SCH (09:32)
[2017-01-22] MEDS: FERROUS SO4 325 MG TABLET (FP) PO SCH (09:32)
[2017-01-22] MEDS: RANITIDINE HCL 150 MG TABLET (FP) PO SCH (09:32)
--- NOTE | 2017-01-22 10:24 | PN ---
Progress Note (short form) - Note Progress Note: no c/o doing ell. tolorating diet CBC, BMP 01/21/17 07:30 01/21/17 07:30 Last Vital Signs Temp Pulse Resp BP Pulse Ox 97.6 F 56 L 18 137/78 98 01/22/17 05:00 01/22/17 05:00 01/22/17 05:00 01/22/17 05:00 01/21/17 11:46 abdomen soft, non tender, no ruq tenderness incision dry, clean no calf tenderness plan d/c home as per id . cont po antibiotics follow up on Tuesday in clinic follow up with surgery for cholecystectomy
--- NOTE | 2017-01-22 13:33 | PN ---
Progress Note (short form) - Note Progress Note: Renal Follow up for Hypertension and volume overload Pt seen and examined at the bedside no acute complaints Vital Signs Temperature 97.8 F 01/22/17 09:00 Pulse Rate 64 01/22/17 09:00 Respiratory Rate 20 01/22/17 09:00 Blood Pressure 122/78 01/22/17 09:00 O2 Sat by Pulse Oximetry (%) 98 01/21/17 11:46 Gen: NAD CVS: RRR Lungs: Dec BS at lung bases, no rales Abd: soft NT/ND Ext: Trace edema in B/L LE CBC, BMP 01/21/17 07:30 01/21/17 07:30 Current Medications Acetaminophen (Tylenol -) 650 mg PO Q4H PRN PRN Reason: FEVER OR PAIN Last Admin: 01/21/17 21:26 Dose: 650 mg Albuterol Sulfate (Ventolin 0.083% Nebulizer Soln -) 1 amp NEB Q4H PRN PRN Reason: SHORT OF BREATH/WHEEZING Bisacodyl (Dulcolax Suppository -) 10 mg RC PRN PRN PRN Reason: CONSTIPATION Last Admin: 01/20/17 14:49 Dose: 10 mg Enoxaparin Sodium (Lovenox -) 40 mg SQ DAILY [facility] Last Admin: 01/22/17 09:32 Dose: 40 mg Ferrous Sulfate (Feosol -) 325 mg PO BID [facility] Last Admin: 01/22/17 09:32 Dose: 325 mg Furosemide (Lasix -) 40 mg PO BID@0600,1400 [facility] Last Admin: 01/22/17 05:39 Dose: 40 mg Piperacillin Sod/Tazobactam Sod (Zosyn 3.375gm Ivpb (Pre-Docked)) 50 mls @ 100 mls/hr IVPB Q8H-IV [facility] PRN Reason: Protocol Last Admin: 01/22/17 09:32 Dose: 100 mls/hr Ibuprofen (Motrin -) 600 mg PO Q4H PRN PRN Reason: PAIN Last Admin: 01/21/17 21:25 Dose: 600 mg Methylergonovine Maleate (Methergine Injection -) 0.2 mg IM Q4H PRN PRN Reason: Excessive Bleeding (L&D) Ondansetron HCl (Zofran Injection) 4 mg IVPB Q4H PRN PRN Reason: NAUSEA AND/OR VOMITING Multivit/Folic Acid/Iron ( Vitamins (Sjr) -) 1 tab PO DAILY [facility] Last Admin: 01/22/17 09:32 Dose: 1 tab Ranitidine HCl (Zantac -) 150 mg PO BID [facility] Last Admin: 01/22/17 09:32 Dose: 150 mg Senna/Docusate Sodium (Pericolace -) 2 tablet PO HS PRN PRN Reason: CONSTIPATION Last Admin: 01/21/17 21:24 Dose: 2 tablet Simethicone (Mylicon -) 80 mg PO Q4H PRN PRN Reason: GAS Last Admin: 01/21/17 21:25 Dose: 80 mg A/P 26 year old woman with PMhx of Asthma s/p C-scetion after her first complicated by Cholecystitis with SOB/volume overload and Hypertension following delivery. # Hypertension likely due to volume expansion +/- induced hypertension BP now stable no antihypertensives required d/c lasix to follow up as outpatient for BP checks #Cholecystitis on abx to get last dose today before discharge Wesley Willis DO
--- NOTE | 2017-01-22 14:14 | PN ---
Progress Note, Physician History of Present Illness: patient has started complaining of rt upper quadrant pain now says it started suddenly' was fine till this morning - Current Medication List Current Medications: Active Medications Acetaminophen (Tylenol -) 650 mg PO Q4H PRN PRN Reason: FEVER OR PAIN Last Admin: 01/21/17 21:26 Dose: 650 mg Albuterol Sulfate (Ventolin 0.083% Nebulizer Soln -) 1 amp NEB Q4H PRN PRN Reason: SHORT OF BREATH/WHEEZING Bisacodyl (Dulcolax Suppository -) 10 mg RC PRN PRN PRN Reason: CONSTIPATION Last Admin: 01/20/17 14:49 Dose: 10 mg Enoxaparin Sodium (Lovenox -) 40 mg SQ DAILY [facility] Last Admin: 01/22/17 09:32 Dose: 40 mg Ferrous Sulfate (Feosol -) 325 mg PO BID [facility] Last Admin: 01/22/17 09:32 Dose: 325 mg Piperacillin Sod/Tazobactam Sod (Zosyn 3.375gm Ivpb (Pre-Docked)) 50 mls @ 100 mls/hr IVPB Q8H-IV [facility] PRN Reason: Protocol Last Admin: 01/22/17 09:32 Dose: 100 mls/hr Ibuprofen (Motrin -) 600 mg PO Q4H PRN PRN Reason: PAIN Last Admin: 01/21/17 21:25 Dose: 600 mg Methylergonovine Maleate (Methergine Injection -) 0.2 mg IM Q4H PRN PRN Reason: Excessive Bleeding (L&D) Ondansetron HCl (Zofran Injection) 4 mg IVPB Q4H PRN PRN Reason: NAUSEA AND/OR VOMITING Multivit/Folic Acid/Iron ( Vitamins (Sjr) -) 1 tab PO DAILY [facility] Last Admin: 01/22/17 09:32 Dose: 1 tab Ranitidine HCl (Zantac -) 150 mg PO BID [facility] Last Admin: 01/22/17 09:32 Dose: 150 mg Senna/Docusate Sodium (Pericolace -) 2 tablet PO HS PRN PRN Reason: CONSTIPATION Last Admin: 01/21/17 21:24 Dose: 2 tablet Simethicone (Mylicon -) 80 mg PO Q4H PRN PRN Reason: GAS Last Admin: 01/21/17 21:25 Dose: 80 mg - Objective Vital Signs: Vital Signs Temperature 97.8 F 01/22/17 09:00 Pulse Rate 64 01/22/17 09:00 Respiratory Rate 20 01/22/17 09:00 Blood Pressure 122/78 01/22/17 09:00 O2 Sat by Pulse Oximetry (%) 98 01/21/17 11:46 Constitutional: Yes: Calm, Mild Distress Neck: Yes: Supple Cardiovascular: Yes: Regular Rate and Rhythm Respiratory: Yes: Regular, CTA Bilaterally Gastrointestinal: Yes: Normal Bowel Sounds, Soft, Tenderness (ruq) Musculoskeletal: Yes: WNL Extremities: Yes: WNL Neurological: Yes: Alert, Oriented Psychiatric: Yes: Alert, Oriented Labs: CBC, BMP 01/21/17 07:30 01/21/17 07:30 INR, PTT INR 0.95 (0.82-1.09) 01/14/17 05:45 Assessment/Plan patient currently stable post c section cardiomyopathy ac blood loss ac choleycystitis hypoxia pleural effusion leukocytosis plan continue current abx will order a stat u/s of ruq hold off on sending the patient home ct abx
[2017-01-22 17:21] VITALS: BP 136/86; PULSE 80; TEMP 98.9
== END 2017-01-22 21:15 | disposition home or self-care (01) | DRG 540 ==
LOC: JDEL 04:20 → JLDR 04:55 → J3N 01-15 01:15 → J3W 01-16 13:20 → JICU 01-17 21:00 → J3W 01-19 11:40
PROVIDERS: ADMIT Obstetrics & Gynecology; ATTEND Obstetrics & Gynecology
PROC: 10D00Z1 Extraction of Products of Conception, Low, Open Approach (ICD-10-PCS; principal; 2017-01-14)
PROC: 3E0F7GC Introduction of Other Therapeutic Substance into Respiratory Tract, Via Natural or Artificial Opening (ICD-10-PCS; 2017-01-15)
PROC: 30233N1 Transfusion of Nonautologous Red Blood Cells into Peripheral Vein, Percutaneous Approach (ICD-10-PCS; 2017-01-16)
DX: O32.4XX0 Maternal care for high head at term, not applicable or unspecified (principal); O41.1230 Chorioamnionitis, third trimester, not applicable or unspecified; O24.425 Gestational diabetes mellitus in childbirth, controlled by oral hypoglycemic drugs; O99.02 Anemia complicating childbirth; D64.9 Anemia, unspecified; O99.62 Diseases of the digestive system complicating childbirth; O77.0 Labor and delivery complicated by meconium in amniotic fluid; O75.2 Pyrexia during labor, not elsewhere classified; O76 Abnormality in fetal heart rate and rhythm complicating labor and delivery; J90 Pleural effusion, not elsewhere classified; K80.00 Calculus of gallbladder with acute cholecystitis without obstruction; O90.3 Peripartum cardiomyopathy; D72.829 Elevated white blood cell count, unspecified; D62 Acute posthemorrhagic anemia; J96.01 Acute respiratory failure with hypoxia; O13.5 Gestational [pregnancy-induced] hypertension without significant proteinuria, complicating the puerperium; J45.909 Unspecified asthma, uncomplicated; O99.343 Other mental disorders complicating pregnancy, third trimester; F41.9 Anxiety disorder, unspecified; J98.11 Atelectasis; Z3A.38 38 weeks gestation of pregnancy; Z37.0 Single live birth
CPT/HCPCS: 36415; 36430; 36600; 71010-TC; 74177-TC; 76705-TC; 80048; 80053; 81003; 81015; 82570; 82803; 83010; 83605; 83615; 83690; 83735; 83880; 84100; 84156; 84484; 85025; 85032; 85610; 85651; 85730; 86593; 86850; 86900; 86901; 86922; 87040; 87070; 87086; 87205; 87389; 88307-TC; 90715; 93005; 93010; 93306-TC; 93970-TC; 94640; J1644; P9038; P9058

== ENCOUNTER → 2017-01-28 | Emergency (ER) | payer OTHER ==
[~2017-01-28] MED LIST: ONDANSETRON 4 MG/2 ML VIAL IVPB ONE; ONDANSETRON 4 MG/2 ML VIAL ONE; SODIUM CHLORIDE 1,000 ML IV STA; morphine CARPU-JECT 4 MG/1 ML DISP.SYRIN IVPUSH ONE; morphine CARPU-JECT 4 MG/1 ML DISP.SYRIN ONE
--- NOTE | 2017-01-28 05:13 | PDOC ---
History of Present Illness - General Chief Complaint: Pain Stated Complaint: STOMACH PAIN Time Seen by Provider: 01/28/17 05:11 History Source: Patient Exam Limitations: Language Barrier (Ghanaian speaking) - History of Present Illness Initial Comments: 01/28/17 05:12 Patient is a 26 yo female who is 2 weeks s/p presenting with 2 hours of acute onset LUQ pain and 1 hour of nausea w/o vomiting. The pain started abruptly and is sharp and pleuritic, 10/10, and only partially relieved with Tylenol she took 40 minutes ago. It is primarily in the LUQ. Patient states her was complicated with gestational DM, cholecystitis and a 3 day ICU admission for respiratory distress. She was also transfused 2 units PRBC. Patient is currently breast feeding. Past History - Past Medical History Allergies/Adverse Reactions: Allergies Allergy/AdvReac Type Severity Reaction Status Date / Time No Known Allergies Allergy Verified 01/28/17 05:09 Home Medications: Ambulatory Orders Vitamins (Sjr) - 1 tab PO DAILY 01/13/17 Acetaminophen [Tylenol .Regular Strength -] 500 mg PO Q4H PRN #30 tablet Albuterol Sulfate Inhaler - [Ventolin HFA Inhaler -] 1 puff IH Q4H PRN #1 inhaler 01/21/17 Amox-Tr/K Cl [Augmentin - 875Mg Tablet] 1 tab PO BID #14 tablet 01/21/17 Ferrous Sulfate [Feosol] 325 mg PO BID #60 tab 01/21/17 Vitamins (Sjr) - 1 tab PO DAILY #60 tablet 01/21/17 Asthma: Yes (no attacks in ) Cancer: No Cardiac Disorders: No Diabetes: No HTN: No Seizures: No Thyroid Disease: No - Reproductive History (#): 1 Para: 0 - Psycho/Social/Smoking Cessation Hx Suicidal Ideation: No Smoking History: Never smoked Have you smoked in the past 12 months: No Hx Alcohol Use: No Drug/Substance Use Hx: No Hx Substance Use Treatment: No Review of Systems - Review of Systems Able to Perform ROS?: Yes Is the patient limited Greenlandic proficient: Yes Constitutional: Yes: Fever. No: Chills Respiratory: Yes: Shortness of Breath (Breathing limited due to pain) ABD/GI: Yes: Nausea, Other (Pain in ULQ and along incision). No: Abdominal Distended, Vomiting *Physical Exam - Vital Signs 01/30/17 19:30 T 98.1, P 75, BP 131/97, RR 20, O2Sat 100 RA - Physical Exam General Appearance: Yes: Nourished, Appropriately Dressed, Apparent Distress HEENT: positive: EOMI Respiratory/Chest: positive: Lungs Clear, Normal Breath Sounds, Other ( tenderness on deep inspiration, slightly deminished lung sounds on left base). negative: Chest Tender, Respiratory Distress Cardiovascular: positive: Regular Rhythm, Regular Rate Gastrointestinal/Abdominal: positive: Normal Bowel Sounds, Tender (LUQ > Epigastric > LLQ/RUQ/Incision), Soft, Other (Incision clean and healing, no erythema, no purulent discharge, no bleeding, increased tenderness along left). negative: Distended, Guarding, Rebound Integumentary: positive: Normal Color, Dry, Warm. negative: Rash, Bruising Neurologic: positive: electric transfer operator II-XII NML intact, Fully Oriented, Alert ED Treatment Course - LABORATORY CBC & Chemistry Diagram: 01/28/17 05:50 01/28/17 05:50 Medical Decision Making - Medical Decision Making 26 year old female 2 weeks s/p with complicated by gestational diabetes, cholecystitis, hemorrhage and ICU admission for plural effusion presenting with new LUQ pain and nausea. Ddx: PE, abdominal abscess/post surgical infection, plural effusion Fluids, Pain control, Labs, CT to R/O PE, left abdomen and lower left lung pathology Advise patient to "pump and dump" for [address] 01/28/17 06:56 Patient was signed out to Dr. Barnes. Labs and CT Pending *DC/Admit/Observation/Transfer Diagnosis at time of Disposition: Abdominal pain Qualifiers: Abdominal location: left upper quadrant Qualified Code(s): R10.12 - Left upper quadrant pain GERD (gastroesophageal reflux disease) Qualifiers: Esophagitis presence: without esophagitis Qualified Code(s): K21.9 - Gastro- esophageal reflux disease without esophagitis - Discharge Dispostion Disposition: HOME Condition at time of disposition: Improved - Referrals Referrals: [facility] [Provider Group] - Patient Instructions Printed Discharge Instructions: DI for Gastroesophageal Reflux Disease (GERD), DI for Abdominal Pain-Adult Additional Instructions: Vuelva al departamento de emergencia inmediatamente con CUALQUIER nuevo, persistente o empeorando los sntomas, incluyendo cualquier dolor abdominal recurrente, fiebres, escalofros, incapacidad para tolerar la ingesta oral o cualquier otra preocupacin. Mantngase alejado del alcohol, los alimentos picantes, la cafena, los alimentos cidos y agrios. [place] el maalox si usted tiene burning para el alivio. Debe llamar y hacer el seguimiento con wyatt mdico y gastroenterlogo dentro de los 5 larry para reji evaluacin ms detallada de denise sntomas. Wyatt visita al departamento de emergencias no est completa sin un seguimiento con wyatt mdico para wyatt reevaluacin. Los resultados fueron discutidos con usted. Por favor, asegrese de que wyatt mdico revise los resultados de wyatt evaluacin de emergencia. Return to the emergency department immediately with ANY new, persistent or worsening symptoms including any recurrent abdominal pain, fevers, chills, inability to tolerate oral intake or any other concerns. Stay away from alcohol, spicy foods, caffeine, acidic/sour foods. Take maalox if you have burning for relief. You MUST call and follow up with your doctor and patient assistant within 5 days for further evaluation of your symptoms. Your emergency department visit is not complete without a followup with your doctor for reevaluation. Results were discussed with you. Please make sure your doctor reviews the results of your emergency evaluation. Print Language: [place] - Attestations Physician Attestion: 01/30/17 19:42 I, Dr. Sung Mcknight, attest that this document has been prepared under my direction and personally reviewed by me in its entirety. I further attest, that it accurately reflects all work, treatment, procedures and medical decision -making performed by me.
[2017-01-28 05:22] VITALS: BMI 23.6
--- NOTE | 2017-01-28 05:35 | PDOC ---
Attending Attestation - Resident Resident Name: Roxanna,Jon - ED Attending Attestation I have performed the following: I have examined & evaluated the patient, The case was reviewed & discussed with the resident, I agree w/resident's findings & plan, Exceptions are as noted <Bryn Nieves - Last Filed: 01/28/17 05:35> - HPI HPI: The patient is a 26 yo F with a past medical history of c section who presents with LUQ/lower lung field pain and discomfort for 2 hours that awoke her from her sleep. The patient notes the pain is worsened on deep inspiration. The patient denies alleviating factors. The patient denies fever, chills, vomiting and diarrhea. The patient endorses associated nausea. - Physicial Exam PE: GENERAL: Well-appearing, well-nourished. No apparent distress. HEENT: Normocephalic, atraumatic. PERRL, EOM intact. CARDIOVASCULAR: Normal S1, S2. Regular rate and rhythm. PULMONARY: Diminished lung sounds in LL base. ABDOMEN: Soft, non-distended, tenderness at LUQ. EXTREMITIES: Normal ROM in all four extremities. No gross deformities. SKIN: Warm, dry. No rash NEUROLOGICAL: No focal neurological deficits. - Medical Decision Making Documentation prepared by Roshni Ambrose, acting as medical professionals for Bryn Nieves MD/DO. <Roshni Ambrose - Last Filed: 01/28/17 05:53>
[2017-01-28 06:20] LABS: BASOPHIL 0.9 % (0-2.0); EOSINOPHIL 1.9 % (0-4.5); MCH 22.7 pg (25.7-33.7); MCHC 30.9 g/dl (32.0-36.0); MEAN CELL VOLUME 73.4 fl (80-96); MEAN PLT VOLUME 8.5 fl (7.5-11.1); NEUTROPHILS 63.5 % (42.8-82.8); PLATELET COUNT 454 K/MM3 (134-434); WHITE BLOOD COUNT 12.4 K/mm3 (4.0-10.0)
[2017-01-28 06:46] LABS: URINE APPEARANCE CLEAR; URINE BILIRUBIN NEGATIVE (NEGATIVE); URINE BLOOD 1+ (NEGATIVE); URINE COLOR YELLOW; URINE GLUCOSE (UA) NEGATIVE (NEGATIVE); URINE KETONE NEGATIVE (NEGATIVE); URINE NITRITE NEGATIVE (NEGATIVE); URINE PROTEIN NEGATIVE (NEGATIVE)
[2017-01-28 06:48] LABS: ALBUMIN 2.6 g/dl (3.4-5.0); ALK PHOS 165 U/L (45-117); ANION GAP 9 (8-16); BILIRUBIN,TOTAL 0.3 mg/dL (0.2-1.0); CALCIUM 8.7 mg/dL (8.5-10.1); CO2 25 mmol/L (21-32); CREATININE 0.7 mg/dL (0.55-1.02); GLUCOSE,RANDOM 90 mg/dL (74-106); SGOT/AST 47 U/L (15-37); SGPT/ALT 31 U/L (12-78); TOT PROT 6.9 g/dl (6.4-8.2)
[2017-01-28 06:48] LABS: URINE LEUK ESTERASE 1+ (NEGATIVE)
[2017-01-28 06:49] LABS: URINE BACTERIA RARE /hpf (NONE SEEN); URINE HYALINE CAST 1 /lpf; URINE MUCUS FEW; URINE RBC 16 /hpf (0-3); URINE WBC 5 /hpf (3-5)
--- NOTE | 2017-01-28 07:22 | PDOC ---
*Physical Exam - Vital Signs Last Vital Signs Temp Pulse Resp BP Pulse Ox 98.1 F 75 20 131/97 100 01/28/17 05:10 01/28/17 05:10 01/28/17 05:10 01/28/17 05:10 01/28/17 05:40 ED Treatment Course - LABORATORY CBC & Chemistry Diagram: 01/28/17 05:50 01/28/17 05:50 - ADDITIONAL ORDERS Additional order review: Laboratory Results 01/28/17 01/28/17 01/28/17 06:20 05:50 05:50 Sodium 138 Potassium 4.9 Chloride 104 Carbon Dioxide 25 Anion Gap 9 BUN 18 D Creatinine 0.7 Creat Clearance w eGFR > 60 Random Glucose 90 D Calcium 8.7 Total Bilirubin 0.3 D AST 47 H D ALT 31 D Alkaline Phosphatase 165 H Total Protein 6.9 D Albumin 2.6 L D Lipase 208 Urine Color Yellow Urine Appearance Clear Urine pH 5.0 D Urine Protein Negative Urine Glucose (UA) Negative Urine Ketones Negative Urine Blood 1+ H Urine Nitrite Negative Urine Bilirubin Negative Urine Urobilinogen 2.0 H Ur Leukocyte Esterase 1+ H Urine RBC 16 Urine WBC 5 Ur Epithelial Cells Rare Urine Bacteria Rare Hyaline Casts 1 Urine Mucus Few 01/28/17 05:50 RBC 4.72 MCV 73.4 L MCHC 30.9 L RDW 22.0 H MPV 8.5 Neutrophils % 63.5 Lymphocytes % 26.6 D Monocytes % 7.1 Eosinophils % 1.9 Basophils % 0.9 - Medications Given in the ED: ED Medications Discontinued Medications Generic Name Dose Route Start Last Admin Trade Name Freq PRN Reason Stop Dose Admin Sodium Chloride 1,000 mls @ 1,000 mls/hr 01/28/17 05:50 01/28/17 06:02 Normal Saline - IV 01/28/17 06:49 1,000 mls/hr ASDIR STA Administration Morphine Sulfate 4 mg 01/28/17 05:49 01/28/17 06:01 Morphine Injection - IVPUSH 01/28/17 05:50 4 mg ONCE ONE Administration Ondansetron HCl 4 mg 01/28/17 05:49 01/28/17 06:02 Zofran Injection IVPB 01/28/17 05:50 4 mg ONCE ONE Administration Medical Decision Making - Medical Decision Making 01/28/17 07:22 Patient was signed out to me by night team (Dr. Mcknight).
[2017-01-28 07:30] VITALS: BP 123/75; PULSE 66; TEMP 97.7
--- NOTE | 2017-01-28 09:58 | PDOC ---
*Physical Exam - Vital Signs Last Vital Signs Temp Pulse Resp BP Pulse Ox 97.7 F 66 16 123/75 100 01/28/17 07:29 01/28/17 07:29 01/28/17 07:29 01/28/17 07:29 01/28/17 07:29 <Phil Barnes - Last Filed: 01/28/17 10:00> - Vital Signs Last Vital Signs Temp Pulse Resp BP Pulse Ox 97.7 F 66 16 123/75 100 01/28/17 07:29 01/28/17 07:29 01/28/17 07:29 01/28/17 07:29 01/28/17 07:29 <Brett Daugherty - Last Filed: 01/28/17 10:14> ED Treatment Course - LABORATORY CBC & Chemistry Diagram: 01/28/17 05:50 01/28/17 05:50 - ADDITIONAL ORDERS Additional order review: Laboratory Results 01/28/17 01/28/17 01/28/17 06:20 05:50 05:50 Sodium 138 Potassium 4.9 Chloride 104 Carbon Dioxide 25 Anion Gap 9 BUN 18 D Creatinine 0.7 Creat Clearance w eGFR > 60 Random Glucose 90 D Calcium 8.7 Total Bilirubin 0.3 D AST 47 H D ALT 31 D Alkaline Phosphatase 165 H Total Protein 6.9 D Albumin 2.6 L D Lipase 208 Urine Color Yellow Urine Appearance Clear Urine pH 5.0 D Urine Protein Negative Urine Glucose (UA) Negative Urine Ketones Negative Urine Blood 1+ H Urine Nitrite Negative Urine Bilirubin Negative Urine Urobilinogen 2.0 H Ur Leukocyte Esterase 1+ H Urine RBC 16 Urine WBC 5 Ur Epithelial Cells Rare Urine Bacteria Rare Hyaline Casts 1 Urine Mucus Few 01/28/17 05:50 RBC 4.72 MCV 73.4 L MCHC 30.9 L RDW 22.0 H MPV 8.5 Neutrophils % 63.5 Lymphocytes % 26.6 D Monocytes % 7.1 Eosinophils % 1.9 Basophils % 0.9 - Medications Given in the ED: ED Medications Discontinued Medications Generic Name Dose Route Start Last Admin Trade Name Freq PRN Reason Stop Dose Admin Sodium Chloride 1,000 mls @ 1,000 mls/hr 01/28/17 05:50 01/28/17 06:02 Normal Saline - IV 01/28/17 06:49 1,000 mls/hr ASDIR STA Administration Morphine Sulfate 4 mg 01/28/17 05:49 01/28/17 06:01 Morphine Injection - IVPUSH 01/28/17 05:50 4 mg ONCE ONE Administration Ondansetron HCl 4 mg 01/28/17 05:49 01/28/17 06:02 Zofran Injection IVPB 01/28/17 05:50 4 mg ONCE ONE Administration <Phil Barnes - Last Filed: 01/28/17 10:00> - LABORATORY CBC & Chemistry Diagram: 01/28/17 05:50 01/28/17 05:50 - ADDITIONAL ORDERS Additional order review: Laboratory Results 01/28/17 01/28/17 01/28/17 06:20 05:50 05:50 Sodium 138 Potassium 4.9 Chloride 104 Carbon Dioxide 25 Anion Gap 9 BUN 18 D Creatinine 0.7 Creat Clearance w eGFR > 60 Random Glucose 90 D Calcium 8.7 Total Bilirubin 0.3 D AST 47 H D ALT 31 D Alkaline Phosphatase 165 H Total Protein 6.9 D Albumin 2.6 L D Lipase 208 Urine Color Yellow Urine Appearance Clear Urine pH 5.0 D Urine Protein Negative Urine Glucose (UA) Negative Urine Ketones Negative Urine Blood 1+ H Urine Nitrite Negative Urine Bilirubin Negative Urine Urobilinogen 2.0 H Ur Leukocyte Esterase 1+ H Urine RBC 16 Urine WBC 5 Ur Epithelial Cells Rare Urine Bacteria Rare Hyaline Casts 1 Urine Mucus Few 01/28/17 05:50 RBC 4.72 MCV 73.4 L MCHC 30.9 L RDW 22.0 H MPV 8.5 Neutrophils % 63.5 Lymphocytes % 26.6 D Monocytes % 7.1 Eosinophils % 1.9 Basophils % 0.9 - Medications Given in the ED: ED Medications Discontinued Medications Generic Name Dose Route Start Last Admin Trade Name Freq PRN Reason Stop Dose Admin Sodium Chloride 1,000 mls @ 1,000 mls/hr 01/28/17 05:50 01/28/17 06:02 Normal Saline - IV 01/28/17 06:49 1,000 mls/hr ASDIR STA Administration Morphine Sulfate 4 mg 01/28/17 05:49 01/28/17 06:01 Morphine Injection - IVPUSH 01/28/17 05:50 4 mg ONCE ONE Administration Ondansetron HCl 4 mg 01/28/17 05:49 01/28/17 06:02 Zofran Injection IVPB 01/28/17 05:50 4 mg ONCE ONE Administration <Brett Daugherty - Last Filed: 01/28/17 10:14> Medical Decision Making - Medical Decision Making 01/28/17 09:57 Patient was signed out to me by the night team (Dr. Mcknight). CT was negative for PE but showed 2 stable nodules which were also noted on previous CT. I have discussed these results with my attending. <Phil Barnes - Last Filed: 01/28/17 10:00> *DC/Admit/Observation/Transfer <Phil Barnes - Last Filed: 01/28/17 10:00> <Brett Daugherty - Last Filed: 01/28/17 10:14> Diagnosis at time of Disposition: Abdominal pain Qualifiers: Abdominal location: left upper quadrant Qualified Code(s): R10.12 - Left upper quadrant pain Gastroesophageal reflux disease Qualifiers: Esophagitis presence: without esophagitis Qualified Code(s): K21.9 - Gastro- esophageal reflux disease without esophagitis - Discharge Dispostion Disposition: HOME Condition at time of disposition: Improved - Referrals Referrals: [facility] [Provider Group] - Patient Instructions Printed Discharge Instructions: DI for Abdominal Pain-Adult, DI for Gastroesophageal Reflux Disease (GERD) Additional Instructions: Vuelva al departamento de emergencia inmediatamente con CUALQUIER nuevo, persistente o empeorando los sntomas, incluyendo cualquier dolor abdominal recurrente, fiebres, escalofros, incapacidad para tolerar la ingesta oral o cualquier otra preocupacin. Mantngase alejado del alcohol, los alimentos picantes, la cafena, los alimentos cidos y agrios. [place] el maalox si usted tiene burning para el alivio. Debe llamar y hacer el seguimiento con wyatt mdico y gastroenterlogo dentro de los 5 larry para reji evaluacin ms detallada de denise sntomas. Wyatt visita al departamento de emergencias no est completa sin un seguimiento con wyatt mdico para wyatt reevaluacin. Los resultados fueron discutidos con usted. Por favor, asegrese de que wyatt mdico revise los resultados de wyatt evaluacin de emergencia. Return to the emergency department immediately with ANY new, persistent or worsening symptoms including any recurrent abdominal pain, fevers, chills, inability to tolerate oral intake or any other concerns. Stay away from alcohol, spicy foods, caffeine, acidic/sour foods. Take maalox if you have burning for relief. You MUST call and follow up with your doctor and cosmetics demonstrator within 5 days for further evaluation of your symptoms. Your emergency department visit is not complete without a followup with your doctor for reevaluation. Results were discussed with you. Please make sure your doctor reviews the results of your emergency evaluation. Print Language: [id number]
[2017-01-28 13:32] LABS: ANISOCYTOSIS 2+; HYPOCHROMIA 1+; MICROCYTOSIS 2+
== END | disposition home or self-care (01) ==
LOC: JER 04:51
PROC: 3E033NZ Introduction of Analgesics, Hypnotics, Sedatives into Peripheral Vein, Percutaneous Approach (ICD-10-PCS; principal; 2017-01-28)
PROC: 3E033GC Introduction of Other Therapeutic Substance into Peripheral Vein, Percutaneous Approach (ICD-10-PCS; 2017-01-28)
DX: O90.89 Other complications of the puerperium, not elsewhere classified (principal); K21.9 Gastro-esophageal reflux disease without esophagitis
CPT/HCPCS: 36415; 71275-TC; 80053; 81003; 81015; 83690; 85025; 96374; 96375; 99284-25

== ENCOUNTER 2017-01-31 01:58 | Emergency (ER) | payer OTHER ==
[2017-01-31 02:19] VITALS: BMI 24.9
[2017-01-31] MEDS ORDERED: morphine CARPU-JECT 4 MG/1 ML DISP.SYRIN IVPUSH ONE (02:42)
[2017-01-31] MEDS ORDERED: SODIUM CHLORIDE 1,000 ML IV STA (02:42)
[2017-01-31] MEDS ORDERED: ONDANSETRON 4 MG/2 ML VIAL IVPB ONE (02:42)
--- NOTE | 2017-01-31 02:48 | PDOC ---
Attending Attestation - Resident Resident Name: CameronPhil - HPI HPI: 01/31/17 06:03 Pt comes with RUQ pain after eating hot dogs, chips, and chocolate and now she has RUQ pain. Pt has known cholelithiasis, as she is 17 days. - Physicial Exam PE: 01/31/17 06:15 Mild RUQ pain. Afebrile. No guarding or rebound. - Medical Decision Making 01/31/17 06:15 Follow with surgery appointment today, as previously scheduled. Pt is going for elective surgery of her GB. Today is the preop appointment/eval.
--- NOTE | 2017-01-31 03:15 | PDOC ---
History of Present Illness - General Chief Complaint: Pain, Acute Stated Complaint: PAIN Time Seen by Provider: 01/31/17 02:29 History Source: Patient, Family, Stave And Bolt Equalizer Used Exam Limitations: Language Barrier - History of Present Illness Initial Comments: 01/31/17 02:57 The patient is a 26F who is s/p 2 weeks ago who is presenting with epigastric and RUQ pain. The patient is with her who is translating. A language barrier is still present and I called a nurse to help translate. The patient has a history of cholecystitis during and is supposed to be seeing a surgeon today (01/31). The states that the patient was eating chocolate around midnight/12:30 and then developed severe abdominal pain. The pain is located in her epigastric region and does not radiate. PSH: C/s 2 weeks ago Allergies: None Social: does not smoke, drink, or use recreational drugs Past History - Past Medical History Allergies/Adverse Reactions: Allergies Allergy/AdvReac Type Severity Reaction Status Date / Time No Known Allergies Allergy Verified 01/31/17 02:17 Home Medications: Ambulatory Orders NK [No Known Home Medication] 01/31/17 Asthma: Yes (no attacks in ) Cancer: No Cardiac Disorders: No Diabetes: No HTN: No Seizures: No Thyroid Disease: No - Reproductive History (#): 1 Para: 0 - Psycho/Social/Smoking Cessation Hx Suicidal Ideation: No Smoking History: Never smoked Have you smoked in the past 12 months: No Information on smoking cessation initiated: No Hx Alcohol Use: No Drug/Substance Use Hx: No Substance Use Type: None Hx Substance Use Treatment: No Review of Systems - Review of Systems Able to Perform ROS?: No Is the patient limited Ukrainian proficient: Yes *Physical Exam - Vital Signs Last Vital Signs Temp Pulse Resp BP Pulse Ox 98.4 F 71 20 136/93 99 01/31/17 02:17 01/31/17 02:01/31/17 02:01/31/17 02:01/31/17 02:17 - Physical Exam General Appearance: Yes: Nourished, Appropriately Dressed, Mild Distress Respiratory/Chest: positive: Lungs Clear, Normal Breath Sounds. negative: Chest Tender, Respiratory Distress Cardiovascular: positive: Regular Rhythm, Regular Rate, S1, S2, Systolic Murmur Gastrointestinal/Abdominal: positive: Tender, Flat, Soft, Other (Positive willard 's sign) Integumentary: positive: Dry, Warm Neurologic: positive: Fully Oriented, Alert, Normal Mood/Affect ED Treatment Course - LABORATORY CBC & Chemistry Diagram: 01/31/17 03:05 01/31/17 03:05 Medical Decision Making - Medical Decision Making 01/31/17 03:16 The patient is a 26F with a known cholecystitis during that is s/p c/ s 2 weeks ago. I have ordered the abdominal set and will be wait for labs to return and pain meds to kick in. I will reassess patient and discuss diet and follow up if she is not a surgical candidate. 01/31/17 05:56 Patient states that she feels better and is ready for discharge. White count is slightly elevated but labs are stable compared to previous labs. She is seeing her surgeon today and will be given a copy of her lab results. *DC/Admit/Observation/Transfer Diagnosis at time of Disposition: Abdominal pain Qualifiers: Abdominal location: right upper quadrant Qualified Code(s): R10.11 - Right upper quadrant pain - Discharge Dispostion Disposition: HOME Condition at time of disposition: Improved Admit: No - Patient Instructions Printed Discharge Instructions: DI for Cholecystitis Additional Instructions: * Please call your personal physician to report your Emergency Department visit and to report your progress, if any. * If there is no improvement in symptoms in 2 days call your physician. * Return to the Emergency Department for any worsening symptoms. Print Language: BANGLADESHI - Attestations Physician Attestion: 01/31/17 05:58 I, Dr. Phil Barnes, attest that this document has been prepared under my direction and personally reviewed by me in its entirety. I further attest, that it accurately reflects all work, treatment, procedures and medical decision -making performed by me.
[2017-01-31 03:20] LABS: BASOPHIL 0.5 % (0-2.0); EOSINOPHIL 1.8 % (0-4.5); MCH 22.5 pg (25.7-33.7); MCHC 30.7 g/dl (32.0-36.0); MEAN CELL VOLUME 73.5 fl (80-96); MEAN PLT VOLUME 8.7 fl (7.5-11.1); NEUTROPHILS 74.1 % (42.8-82.8); RDW 22.2 % (11.6-15.6); WHITE BLOOD COUNT 13.8 K/mm3 (4.0-10.0)
[2017-01-31 03:36] LABS: ALBUMIN 2.7 g/dl (3.4-5.0); ANION GAP 6 (8-16); BILIRUBIN,TOTAL 0.4 mg/dL (0.2-1.0); CALCIUM 8.6 mg/dL (8.5-10.1); CO2 28 mmol/L (21-32); CREATININE 0.7 mg/dL (0.55-1.02); GLUCOSE,RANDOM 102 mg/dL (74-106); SGOT/AST 95 U/L (15-37); SGPT/ALT 60 U/L (12-78); TOT PROT 6.7 g/dl (6.4-8.2)
[2017-01-31 03:37] LABS: ALK PHOS 216 U/L (45-117)
[2017-01-31 04:36] LABS: URINE APPEARANCE CLEAR; URINE BILIRUBIN NEGATIVE (NEGATIVE); URINE BLOOD 3+ (NEGATIVE); URINE COLOR STRAW; URINE GLUCOSE (UA) NEGATIVE (NEGATIVE); URINE KETONE NEGATIVE (NEGATIVE); URINE NITRITE NEGATIVE (NEGATIVE); URINE PROTEIN NEGATIVE (NEGATIVE); URINE UROBILINOGEN NEGATIVE mg/dL (0.2-1.0)
[2017-01-31 04:40] LABS: URINE LEUK ESTERASE 1+ (NEGATIVE)
[2017-01-31 04:41] LABS: URINE BACTERIA RARE /hpf (NONE SEEN); URINE MUCUS RARE; URINE RBC 4 /hpf (0-3); URINE WBC 3 /hpf (3-5)
[2017-01-31 05:12] LABS: PLATELET COUNT 264 K/MM3 (134-434)
[2017-01-31 05:13] LABS: ANISOCYTOSIS 2+; HYPOCHROMIA 1+; MICROCYTOSIS 2+; PLATELET COMMENT2 NO CLOTTING DETECTED; PLATELET COMMENT3 FEW GIANT PLTS; PLATELET ESTIMATE ADEQUATE (NORMAL); POIKILOCYTOSIS 2+; POLYCHROMASIA 1+
[2017-01-31 05:14] LABS: FRAGMENTED CELL 1+
[2017-01-31 06:44] VITALS: BP 118/72; PULSE 78; TEMP 98.8
== END 2017-01-31 06:15 | disposition home or self-care (01) ==
LOC: JER 01:58
PROC: 3E033NZ Introduction of Analgesics, Hypnotics, Sedatives into Peripheral Vein, Percutaneous Approach (ICD-10-PCS; principal; 2017-01-31)
PROC: 3E033GC Introduction of Other Therapeutic Substance into Peripheral Vein, Percutaneous Approach (ICD-10-PCS; 2017-01-31)
DX: O99.63 Diseases of the digestive system complicating the puerperium (principal); K80.18 Calculus of gallbladder with other cholecystitis without obstruction
CPT/HCPCS: 36415; 80053; 81003; 81015; 83690; 85025; 96374; 96375; 99282-25

== ENCOUNTER 2017-03-09 09:13 | Day surgery (SDC) | payer OTHER ==
[2017-03-09] MEDS ORDERED: MIDAZOLAM HCL 2 MG/2 ML SINGLE DOSE VIAL ONE (10:31)
--- NOTE | 2017-03-09 10:51 | HP ---
History & Physical Update - History History: No Change - Physical Physical: No Change - Assessment Assessment: No Change - Plan Plan: No Change
[2017-03-09] MEDS ORDERED: BUPIVACAINE HCL/PF 0.5% (5MG/ML) 10 ML VIAL ONE (11:14)
[2017-03-09] MEDS ORDERED: ceFAZolin SODIUM 1 GM VIAL IVPB ONE (12:01)
[2017-03-09] MEDS ORDERED: ceFAZolin SODIUM 1 GM VIAL ONE ×2 (12:09→12:12)
[2017-03-09] MEDS ORDERED: NEOSTIGMINE METHYLSULFATE 0.5 MG/ML - 10 ML MDV ONE (12:11)
[2017-03-09] MEDS ORDERED: PROPOFOL 20 ML ONE ×2 (12:11→13:02)
[2017-03-09] MEDS ORDERED: BUPIVACAINE HCL/PF 0.5% (5MG/ML) 10 ML VIAL IJ ONE (12:19)
[2017-03-09] MEDS ORDERED: ROCURONIUM BROMIDE 50 MG/5 ML VIAL ONE (13:01)
--- NOTE | 2017-03-09 13:21 | OP ---
Operative Note - Note: Operative Date: 03/09/17 Pre-Operative Diagnosis: cholelithiasis Operation: laparoscopic cholecystectomy Surgeon: Freeman Mcgarry Learning Services Coordinator: Eleanor Marsh Anesthesiologist/TAKE OFF WORKER: Diane Ojeda Anesthesia: General Specimens Removed: gallbladder Estimated Blood Loss (mls): 10 Fluid Volume Replaced (mls): 1,000 Operative Report Dictated: Yes
--- NOTE | 2017-03-09 13:22 | SURG ---
Surgery Microwave Oven Assembler Note Microwave Oven Assembler: Eleanor Marsh PA-C Date of Service: 03/09/17 Diagnosis: cholelithiasis Procedure: laparoscopic cholecystectomy I was present for the entirety of the operative procedure. For further detail, please refer to operative report. Visit type - Case Type Case Type: Scheduled Admission - Emergency Emergency Visit: No - New patient This patient is new to me today: Yes Date on this admission: 03/09/17 - Critical Care Critical Care patient: No
--- NOTE | 2017-03-09 13:34 | OP ---
DATE OF OPERATION: 03/09/2017 PROCEDURE: Laparoscopic cholecystectomy with intraoperative cholangiogram. PREOPERATIVE DIAGNOSIS: Chronic cholecystitis with cholelithiasis. POSTOPERATIVE DIAGNOSIS: Chronic cholecystitis with cholelithiasis. SURGEON: Freeman Mcgarry MD VENDOR MANAGEMENT ASSOCIATE: LUCHO Hope ANESTHESIA: General endotracheal. FINDINGS AND PROCEDURE: This is a 26-year-old female who was found to have symptomatic gallstones during who presents with chronic right upper quadrant pain almost on a daily basis. Ultrasound showed gallbladder with multiple stones and normal-sized common duct, so patient was advised elective cholecystectomy and consent was obtained after discussing the risks, benefits, and alternatives of the procedure. Patient was brought to the operating room and placed in the supine position. General endotracheal anesthesia was administered. The abdomen was prepped and draped in the usual sterile fashion. Using 0.5% Marcaine, local anesthesia was then inserted in the proposed incision sites. The peritoneal cavity was entered using the Optiview technique with a 5-mm 30-degree scope inserted in the 5-mm optical port through a 5-mm umbilical incision. Pneumoperitoneum was established. The peritoneal cavity was carefully inspected and was noted to be free of inadvertent injury. Patient was then placed in reverse Trendelenburg, left side down position. An 11-mm port was inserted at the subxiphoid region and two 5-mm ports were inserted at the right subcostal region at the midclavicular and anterior axillary lines, respectively. The gallbladder fundus was grasped and retracted anterosuperiorly and the infundibulum was grasped and retracted inferolaterally to expose the triangle of Calot. At this time, using the indocyanine green technology and specialized scope, the common bile duct as well as the cystic duct was clearly delineated to avoid common bile duct injury. The ICG was injected 30 minutes prior to the start of the procedure. After the common bile duct and the cystic duct were clearly identified, the visceral peritoneum covering the triangle was scored using the hook dissector connected to monopolar cautery. This then exposed the cystic duct as well as the cystic artery. A window was made at the triangle between the liver, inferior wall of the gallbladder, and the cystic artery to create the critical view of safety. The cystic duct and cystic artery were then clipped at 3 points followed by transection, leaving 2 clips at each structure. The gallbladder was resected from its bed in antegrade fashion using the hook dissector connected to monopolar cautery. Hemostasis was achieved along the way. Prior to completion of the resection, the liver bed was again inspected and was noted to be free of active bleeding. The gallbladder was completely resected and placed in an Endobag and the gallbladder was extracted via the subxiphoid incision. The ports were removed and the pneumoperitoneum was evacuated. The wounds were closed with subcuticular Biosyn 4-0 sutures reinforced with Dermabond. Patient was successfully extubated and transferred to the postanesthesia care unit in satisfactory condition. Estimated blood loss was about 1 mL. Wound class clean contaminated. The patient received 1 g of Ancef prior to the start of the procedure. Carole [id number]
[2017-03-09] MEDS ORDERED: ONDANSETRON 4 MG/2 ML VIAL IVPUSH PRN (13:36)
[2017-03-09] MEDS ORDERED: MEPERIDINE HCL CARPU-JECT 25 MG/1 ML DISP.SYRIN IVPUSH ONE (13:40)
[2017-03-09] MEDS ORDERED: LACTATED RINGERS SOLUTION 1,000 ML IV SCH (13:45)
[2017-03-09] MEDS ORDERED: ACETAMINOPHEN INJECTION 100 ML IVPB ONE (14:07)
[2017-03-09] MEDS ORDERED: ACETAMINOPHEN 1000 MG/100 ML VIAL (NON FORMULARY) IVPB ONE (14:10)
[2017-03-09] MEDS ORDERED: oxyCODONE HCL 5 MG TABLET ONE (16:43)
[2017-03-09] MEDS: oxyCODONE HCL 5 MG TABLET PO PRN ×2 (16:45→21:06)
[2017-03-09] MEDS ORDERED: ONDANSETRON 4 MG/2 ML VIAL ONE (17:10)
[2017-03-10] MEDS: oxyCODONE HCL 5 MG TABLET PO PRN (05:46)
[2017-03-10 07:50] VITALS: PULSE 64
[2017-03-10 09:51] VITALS: BP 122/84; TEMP 98.6
--- NOTE | 2017-03-10 12:22 | PATH ---
Surgical Pathology Report Patient Name: TATI CAMILO [facility]. Rec. #: [id number] /Age/Gender: 1990 (Age: 26) / F Account: [id number] Location: [facility] SURGICAL Taken: 03/09/2017 Received: 03/09/2017 Reported: 03/10/2017 Physicians: Freeman Mcgarry M.D. Specimen(s) Received GALLBLADDER Clinical History Acute cholecystitis Final Diagnosis GALLBLADDER, CHOLECYSTECTOMY: CHRONIC CHOLECYSTITIS, CHOLESTEROLOSIS, AND CHOLELITHIASIS. BENIGN PERICYSTIC LYMPH NODE PRESENT. Electronically Signed Kj Islas M.D. Gross Description Received in formalin, labeled "gallbladder," is a 7.0 x 2.4 x 2.3 cm. gallbladder with a 0.2 cm. in length portion of cystic duct attached. There is a 0.4 cm in greatest dimension possible periductal lymph node present. The outer surface is smith fallon and varies from smooth to shaggy. The lumen contains yellow-green, tenacious bile as well as multiple yellow, spherical cholelith averaging 0.4 cm in greatest dimension. The mucosa is smith and velvety. The wall of the gallbladder measures 0.1 cm. in thickness. Scholastic Aptitude Test Grader sections are submitted in one cassette. 03/09/201703/09/2017
== END 2017-03-10 10:27 | disposition home or self-care (01) ==
LOC: JASU-SURG 09:13 → J5S 19:00 → JASU-SURG 03-10 10:27
PROVIDERS: ATTEND Surgery
PROC: BF03YZZ Plain Radiography of Gallbladder and Bile Ducts using Other Contrast (ICD-10-PCS; 2017-03-09)
PROC: 0FT44ZZ Resection of Gallbladder, Percutaneous Endoscopic Approach (ICD-10-PCS; principal; 2017-03-09 10:30)
DX: K80.10 Calculus of gallbladder with chronic cholecystitis without obstruction (principal)
CPT/HCPCS: 84703; 88304-TC; 94760

== ENCOUNTER → 2018-04-03 | Day surgery (SDC) | payer OTHER ==
--- NOTE | 2018-04-04 13:48 | PATH ---
Surgical Pathology Report Patient Name: TATI CAMILO [facility]. Rec. 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 Electronically Signed Roshni Sewell M.D. Gross Description Received in formalin labeled "left breast 9:00" are 3 smith-yellow, cylindrical portions of fibroadipose tissue ranging from 0.3-1.2 cm in length and averaging 0.1 cm diameter. The specimens are submitted in toto in one cassette. Total formalin fixation time: Between 6-7 hours. ALE/04/03/2018 ander/04/03/2018
== END | disposition home or self-care (01) ==
LOC: JRADUS-SUR 10:29
PROVIDERS: ATTEND Nurse Practitioner Family
PROC: 0HBU3ZX Excision of Left Breast, Percutaneous Approach, Diagnostic (ICD-10-PCS; principal; 2018-04-03)
DX: D24.2 Benign neoplasm of left breast (principal)
CPT/HCPCS: 19083; 87899; 88305-TC; A4648

== ENCOUNTER 2020-09-23 14:00 | Inpatient (IN) | payer OTHER ==
[2020-09-23] MEDS ORDERED: SODIUM CHLORIDE 1,000 ML IV SCH (15:30)
[2020-09-23 15:37] LABS: BASO % 0.2 % (0-2.0); EOS % 0.2 % (0-4.5); HEMATOCRIT 30.5 % (32.4-45.2); HEMOGLOBIN 10.2 GM/dL (10.7-15.3); MCH 27.4 pg (25.7-33.7); MCHC 33.5 g/dl (32.0-36.0); MEAN CELL VOLUME 81.7 fl (80-96); MEAN PLT VOLUME 9.1 fl (7.5-11.1); MONO % 9.5 % (3.8-10.2); NEUT % 75.1 % (42.8-82.8); PLATELET COUNT 51 K/MM3 (134-434); RBC 3.74 M/mm3 (3.60-5.2); RDW 13.9 % (11.6-15.6); WHITE BLOOD COUNT 10.1 K/mm3 (4.0-10.0)
[2020-09-23 15:42] LABS: INR 0.99 (0.83-1.09)
[2020-09-23 15:59] LABS: POTASSIUM 3.6 mmol/L (3.5-5.1)
[2020-09-23 16:00] LABS: ALBUMIN 2.5 g/dl (3.4-5.0)
[2020-09-23 16:01] LABS: ALBUMIN 2.5 g/dl (3.4-5.0); BLOOD UREA NITROGEN 6.4 mg/dL (7-18); CALCIUM 8.6 mg/dL (8.5-10.1)
[2020-09-23 16:05] LABS: BILIRUBIN,TOTAL 0.4 mg/dL (0.2-1); TOT PROT 6.4 g/dl (6.4-8.2)
[2020-09-23 16:05] LABS: CREATININE 0.4 mg/dL (0.55-1.3)
[2020-09-23 16:07] LABS: BILIRUBIN,TOTAL 0.3 mg/dL (0.2-1); TOT PROT 6.4 g/dl (6.4-8.2)
[2020-09-23 16:08] LABS: BILIRUBIN,DIRECT 0.1 mg/dL (0.0-0.2)
[2020-09-23 17:08] VITALS: BP 116/77; PULSE 98; TEMP 97.2; BMI 25.4
== END 2020-09-23 17:45 | disposition short-term general hospital (02) | DRG 566 ==
LOC: JDEL 14:00 → JLDR 15:40
PROVIDERS: ADMIT Obstetrics & Gynecology; ATTEND Obstetrics & Gynecology
DX: O98.513 Other viral diseases complicating pregnancy, third trimester (principal); O99.113 Other diseases of the blood and blood-forming organs and certain disorders involving the immune mechanism complicating pregnancy, third trimester; O24.419 Gestational diabetes mellitus in pregnancy, unspecified control; D69.6 Thrombocytopenia, unspecified; U07.1 COVID-19; Z3A.27 27 weeks gestation of pregnancy
CPT/HCPCS: 36415; 80053; 80076; 82550; 82728; 83615; 85025; 85379; 85384; 85610; 85730; 86140

== ENCOUNTER 2020-12-12 06:30 | Inpatient (IN) | payer OTHER ==
[2020-12-12] MEDS ORDERED: ELECTROLYTE-148 SOLN 500 ML IV ONE (07:00)
[2020-12-12 07:54] LABS: BASO % 0.3 % (0-2.0); EOS % 1.2 % (0-4.5); HEMATOCRIT 30.3 % (32.4-45.2); LYMPH % 24.1 % (8-40); MCH 26.8 pg (25.7-33.7); MEAN PLT VOLUME 9.1 fl (7.5-11.1); MONO % 10.1 % (3.8-10.2); NEUT % 64.3 % (42.8-82.8); RBC 3.74 M/mm3 (3.60-5.2); RDW 15.4 % (11.6-15.6); WHITE BLOOD COUNT 10.6 K/mm3 (4.0-10.0)
[2020-12-12 08:02] VITALS: BMI 27.6
[2020-12-12] MEDS ORDERED: CITRIC ACID/SODIUM CITRATE 30 ML UNIT-DOSE CUP PO ONE (08:02)
[2020-12-12] MEDS: ELECTROLYTE-148 SOLN 1,000 ML IV SCH (08:05)
[2020-12-12] MEDS ORDERED: morphine SULFATE/PF 0.5 MG/ML (2cc Syringe - QUVA) ONE (08:30)
[2020-12-12] MEDS ORDERED: PHENYLEPHRINE HCL 10 MG/1 ML SINGLE DOSE VIAL ONE ×2 (08:30→09:39)
[2020-12-12] MEDS: OXYTOCIN 20 UNITS in 0.9% NS 20 UNIT/1,000 ML INFUS.BAG IV SCH ×2 (08:56→11:10)
[2020-12-12] MEDS ORDERED: OXYTOCIN 10 UNITS/ML VIAL ONE ×4 (09:39)
[2020-12-12] MEDS ORDERED: ceFAZolin SODIUM 1 GM VIAL ONE ×2 (09:39)
[2020-12-12] MEDS ORDERED: SENNOSIDES/DOCUSATE COMBO (SENNA PLUS) TABLET (UD) PO PRN (09:50)
[2020-12-12] MEDS ORDERED: METHYLERGONOVINE MALEATE 0.2 MG/1 ML AMP IM PRN (09:50)
[2020-12-12 09:58] LABS: CORD BASE EXCESS -4.5 mmol/L (0-2); CORD pH 7.337 (7.14-7.44)
[2020-12-12 09:59] LABS: CORD BASE EXCESS -4.7 mmol/L (0-2); CORD HCO3 22.2 mmHg (20-29); CORD PCO2 47.7 mmHg (30-78); CORD pH 7.286 (7.14-7.44)
[2020-12-12 11:09] LABS: PLATELET ESTIMATE SIGNIFICANT INCREASE
[2020-12-12] MEDS ORDERED: OXYTOCIN 20 UNITS in 0.9% NS 20 UNIT/1,000 ML INFUS.BAG IV ONE (11:24)
[2020-12-12] MEDS: IBUPROFEN 800 MG/8 ML IJ IVPB PRN ×2 (14:07→20:23)
[2020-12-12] MEDS ORDERED: ONDANSETRON 4 MG/2 ML VIAL IVPUSH PRN (14:36)
[2020-12-12] MEDS ORDERED: ACETAMINOPHEN 325 MG TABLET (FP) PO PRN (14:36)
[2020-12-12] MEDS ORDERED: IBUPROFEN 600 MG TABLET (FP) PO PRN (14:36)
[2020-12-12] MEDS: CEFAZOLIN 1 GM/D5W 1 GM/50 ML BAG IVPB SCH ×2 (16:18→18:49)
[2020-12-13] MEDS: ACETAMINOPHEN 325 MG TABLET (FP) PO PRN ×4 (01:35→20:35)
[2020-12-13] MEDS: CEFAZOLIN 1 GM/D5W 1 GM/50 ML BAG IVPB SCH ×2 (01:35→09:09)
[2020-12-13 07:29] LABS: BASO % 0.3 % (0-2.0); EOS % 1.2 % (0-4.5); HEMATOCRIT 30.8 % (32.4-45.2); LYMPH % 14.7 % (8-40); MCH 26.6 pg (25.7-33.7); MCHC 32.4 g/dl (32.0-36.0); MEAN CELL VOLUME 82.3 fl (80-96); MEAN PLT VOLUME 9.7 fl (7.5-11.1); MONO % 9.3 % (3.8-10.2); NEUT % 74.5 % (42.8-82.8); RBC 3.74 M/mm3 (3.60-5.2); RDW 15.7 % (11.6-15.6); WHITE BLOOD COUNT 13.6 K/mm3 (4.0-10.0)
[2020-12-13] MEDS: oxyCODONE HCL 5 MG TABLET PO PRN ×2 (08:47→16:23)
[2020-12-13] MEDS: ELECTROLYTE-148 SOLN 1,000 ML IV SCH (08:49)
[2020-12-13] MEDS: ENOXAPARIN NA (PORCINE) 40 MG/0.4 ML DISP.SYRIN SQ SCH (09:09)
[2020-12-13] MEDS ORDERED: BISACODYL 10 MG SUPP.RECT RC PRN (09:50)
[2020-12-13] MEDS: PRENATAL VITAMINS W/ FOLIC ACID TABLET (FP) PO SCH (09:54)
[2020-12-13] MEDS: OXYTOCIN 20 UNITS in 0.9% NS 20 UNIT/1,000 ML INFUS.BAG IV SCH (10:08)
[2020-12-13] MEDS: IBUPROFEN 600 MG TABLET (FP) PO PRN ×2 (14:28→20:35)
[2020-12-13] MEDS: SIMETHICONE 80 MG TAB.CHEW (FP) PO PRN (14:28)
[2020-12-13] MEDS: FERROUS SO4 325 MG TABLET (FP) PO SCH (21:02)
[2020-12-14] MEDS: IBUPROFEN 600 MG TABLET (FP) PO PRN ×3 (00:44→14:11)
[2020-12-14] MEDS: ACETAMINOPHEN 325 MG TABLET (FP) PO PRN ×3 (00:44→14:12)
[2020-12-14] MEDS: SIMETHICONE 80 MG TAB.CHEW (FP) PO PRN (08:03)
[2020-12-14] MEDS: FERROUS SO4 325 MG TABLET (FP) PO SCH ×2 (10:14→21:32)
[2020-12-14] MEDS: ENOXAPARIN NA (PORCINE) 40 MG/0.4 ML DISP.SYRIN SQ SCH (10:14)
[2020-12-14] MEDS: PRENATAL VITAMINS W/ FOLIC ACID TABLET (FP) PO SCH (10:14)
[2020-12-14] MEDS: oxyCODONE HCL 5 MG TABLET PO PRN ×2 (15:31→21:58)
[2020-12-15] MEDS: SIMETHICONE 80 MG TAB.CHEW (FP) PO PRN (04:43)
[2020-12-15] MEDS: oxyCODONE HCL 5 MG TABLET PO PRN (04:43)
[2020-12-15] MEDS: IBUPROFEN 600 MG TABLET (FP) PO PRN ×2 (04:44→09:17)
[2020-12-15 06:46] LABS: BASO % 0.2 % (0-2.0); EOS % 3.4 % (0-4.5); HEMATOCRIT 29.9 % (32.4-45.2); HEMOGLOBIN 9.9 GM/dL (10.7-15.3); MEAN CELL VOLUME 81.7 fl (80-96); MONO % 8.1 % (3.8-10.2); NEUT % 69.3 % (42.8-82.8); RBC 3.66 M/mm3 (3.60-5.2); RDW 16.1 % (11.6-15.6); WHITE BLOOD COUNT 10.4 K/mm3 (4.0-10.0)
[2020-12-15] MEDS: PRENATAL VITAMINS W/ FOLIC ACID TABLET (FP) PO SCH (09:13)
[2020-12-15] MEDS: FERROUS SO4 325 MG TABLET (FP) PO SCH (09:13)
[2020-12-15] MEDS: ENOXAPARIN NA (PORCINE) 40 MG/0.4 ML DISP.SYRIN SQ SCH (09:13)
[2020-12-15] MEDS: ACETAMINOPHEN 325 MG TABLET (FP) PO PRN (09:18)
[2020-12-15 13:44] VITALS: BP 118/70; PULSE 67; TEMP 98.6
== END 2020-12-15 12:40 | disposition home or self-care (01) | DRG 540 ==
LOC: JLDR 06:30 → J3W 11:30
PROVIDERS: ADMIT Obstetrics & Gynecology; ATTEND Obstetrics & Gynecology
PROC: 10D00Z1 Extraction of Products of Conception, Low, Open Approach (ICD-10-PCS; principal; 2020-12-12)
DX: O34.211 Maternal care for low transverse scar from previous cesarean delivery (principal); O24.424 Gestational diabetes mellitus in childbirth, insulin controlled; Z79.4 Long term (current) use of insulin; O99.03 Anemia complicating the puerperium; D50.8 Other iron deficiency anemias; Z86.16 Personal history of COVID-19; Z3A.39 39 weeks gestation of pregnancy; Z37.0 Single live birth
CPT/HCPCS: 36415; 36600; 82803; 82962; 85025; 86780; 88307-TC

== ENCOUNTER 2020-12-16 14:18 | Emergency (ER) | payer OTHER ==
[2020-12-16 14:36] VITALS: BP 129/77; PULSE 81; TEMP 98.4; BMI 25.4
[2020-12-16] MEDS ORDERED: ACETAMINOPHEN 1000 MG/100 ML VIAL (NON FORMULARY) IVPB ONE (14:53)
[2020-12-16] MEDS ORDERED: ACETAMINOPHEN INJECTION 100 ML IVPB ONE (15:04)
[2020-12-16 16:26] LABS: BASO % 0.2 % (0-2.0); EOS % 4.6 % (0-4.5); HEMATOCRIT 32.3 % (32.4-45.2); HEMOGLOBIN 10.6 GM/dL (10.7-15.3); LYMPH % 22.4 % (8-40); MCH 26.9 pg (25.7-33.7); MCHC 32.7 g/dl (32.0-36.0); MEAN CELL VOLUME 82.1 fl (80-96); MONO % 7.8 % (3.8-10.2); RBC 3.94 M/mm3 (3.60-5.2); RDW 16.1 % (11.6-15.6); WHITE BLOOD COUNT 9.3 K/mm3 (4.0-10.0)
[2020-12-16 16:38] LABS: INR 0.96 (0.83-1.09); PROTHROMBIN TIME (PATIENT) 11.6 SEC (9.7-13.0)
[2020-12-16] MEDS ORDERED: SODIUM CHLORIDE 1,000 ML IV STA (16:41)
[2020-12-16 16:46] LABS: CALCIUM 8.5 mg/dL (8.5-10.1)
[2020-12-16 16:47] LABS: ALBUMIN 2.6 g/dl (3.4-5.0); BLOOD UREA NITROGEN 8.6 mg/dL (7-18)
[2020-12-16 16:50] LABS: CREATININE 0.5 mg/dL (0.55-1.3)
[2020-12-16 16:51] LABS: BILIRUBIN,TOTAL 0.3 mg/dL (0.2-1)
[2020-12-16 16:52] LABS: TOT PROT 6.5 g/dl (6.4-8.2)
[2020-12-16] MEDS ORDERED: morphine CARPU-JECT 4 MG/1 ML DISP.SYRIN IVPUSH ONE (17:08)
[2020-12-16] MEDS ORDERED: morphine SULFATE 4 MG/ML VIAL ONE (17:10)
[2020-12-16 17:14] LABS: PLATELET ESTIMATE ADEQUATE
[2020-12-16] MEDS ORDERED: AMPICILLIN NA/SULBACTAM NA 3 GM in SODIUM CHLORIDE 100 ML IVPB ONE (17:18)
[2020-12-16] MEDS ORDERED: LIDOCAINE 5% TOPICAL PATCH ONE (17:23)
[2020-12-16 18:01] LABS: EPI CELLS 36 /uL (0-25.1); HYALINE CASTS 1 /uL (0-3.1); PH,URINE 6.5 (5.0-8.0); URINE APPEARANCE CLEAR; URINE BACTERIA 63 /uL (0-1359); URINE BILIRUBIN NEGATIVE (NEGATIVE); URINE COLOR YELLOW; URINE GLUCOSE (UA) NEGATIVE (NEGATIVE); URINE KETONE NEGATIVE (NEGATIVE); URINE LEUK ESTERASE TRACE (NEGATIVE); URINE NITRITE NEGATIVE (NEGATIVE); URINE PROTEIN NEGATIVE (NEGATIVE); URINE RBC 44 /uL (0-23.9); URINE UROBILINOGEN 0.2 mg/dL (0.2-1.0); URINE WBC 37 /uL (0-25.8)
== END 2020-12-16 19:22 | disposition home or self-care (01) ==
LOC: JER 14:18
PROC: 3E03329 Introduction of Other Anti-infective into Peripheral Vein, Percutaneous Approach (ICD-10-PCS; principal; 2020-12-16)
PROC: 3E033NZ Introduction of Analgesics, Hypnotics, Sedatives into Peripheral Vein, Percutaneous Approach (ICD-10-PCS; 2020-12-16)
PROC: 3E033GC Introduction of Other Therapeutic Substance into Peripheral Vein, Percutaneous Approach (ICD-10-PCS; 2020-12-16)
PROC: 3E0337Z Introduction of Electrolytic and Water Balance Substance into Peripheral Vein, Percutaneous Approach (ICD-10-PCS; 2020-12-16)
DX: R10.32 Left lower quadrant pain (principal); O90.2 Hematoma of obstetric wound
CPT/HCPCS: 36415; 76856-TC; 80053; 81003; 85025; 85610; 86850; 86900; 86901; 87070; 87186; 87205; 99285-25; J0131

== ENCOUNTER 2020-12-18 10:16 | Emergency (ER) | payer OTHER ==
[2020-12-18 10:43] VITALS: BP 147/88; PULSE 70; TEMP 99.1; BMI 24.9
== END 2020-12-18 11:41 | disposition home or self-care (01) ==
LOC: JER 10:16
DX: Z48.00 Encounter for change or removal of nonsurgical wound dressing (principal)
CPT/HCPCS: 99281-25

== ENCOUNTER 2021-09-21 10:20 | Emergency (ER) | payer OTHER ==
[2021-09-21 11:09] VITALS: BP 152/91; PULSE 83; TEMP 97.5; BMI 21.2
[2021-09-21] MEDS ORDERED: METOCLOPRAMIDE HCL INJECTION 10 MG/2 ML VIAL IVPB ONE (11:56)
[2021-09-21] MEDS ORDERED: ACETAMINOPHEN 1000 MG/100 ML BAG IVPB ONE (11:56)
[2021-09-21] MEDS ORDERED: SODIUM CHLORIDE 1,000 ML IV STA (11:56)
[2021-09-21] MEDS ORDERED: METOCLOPRAMIDE HCL INJECTION 10 MG/2 ML VIAL ONE (12:20)
[2021-09-21] MEDS ORDERED: ACETAMINOPHEN INJECTION 100 ML IVPB ONE (12:52)
[2021-09-21 13:22] LABS: BASO % 0.3 % (0-2.0); EOS % 0.1 % (0-4.5); HEMATOCRIT 40.4 % (32.4-45.2); HEMOGLOBIN 13.5 GM/dL (10.7-15.3); LYMPH % 7.7 % (8-40); MCH 27.7 pg (25.7-33.7); MCHC 33.4 g/dl (32.0-36.0); MEAN CELL VOLUME 83.1 fl (80-96); MEAN PLT VOLUME 9.5 fl (7.5-11.1); NEUT % 89.9 % (42.8-82.8); PLATELET COUNT 211 10^3/uL (134-434); RBC 4.86 M/mm3 (3.60-5.2); RDW 12.9 % (11.6-15.6); WHITE BLOOD COUNT 13.4 K/mm3 (4.0-10.0)
[2021-09-21 13:47] LABS: CALCIUM 9.4 mg/dL (8.5-10.1)
[2021-09-21 13:48] LABS: ALBUMIN 4.4 g/dl (3.4-5.0); BLOOD UREA NITROGEN 14.2 mg/dL (7-18)
[2021-09-21 13:51] LABS: CREATININE 0.5 mg/dL (0.55-1.3)
[2021-09-21 13:52] LABS: BILIRUBIN,TOTAL 0.5 mg/dL (0.2-1); TOT PROT 8.3 g/dl (6.4-8.2)
[2021-09-21] MEDS ORDERED: KETOROLAC TROMETHAMINE 60 MG/2 ML VIAL IVPUSH ONE (14:38)
[2021-09-21] MEDS ORDERED: KETOROLAC TROMETHAMINE 15 MG/ML VIAL ONE (14:42)
== END 2021-09-21 15:27 | disposition home or self-care (01) ==
LOC: JER 10:20
PROC: 3E033GC Introduction of Other Therapeutic Substance into Peripheral Vein, Percutaneous Approach (ICD-10-PCS; principal; 2021-09-21)
DX: G43.909 Migraine, unspecified, not intractable, without status migrainosus (principal)
CPT/HCPCS: 36415; 80053; 84703; 85025; 99284-25

== ENCOUNTER 2023-06-15 19:14 | Emergency (ER) | payer OTHER ==
[2023-06-15 19:23] VITALS: BMI 23.0
[2023-06-15] MEDS ORDERED: METOCLOPRAMIDE HCL INJECTION 10 MG/2 ML VIAL IVPB ONE (20:48)
[2023-06-15] MEDS ORDERED: SODIUM CHLORIDE 0.9% 500 ML INFUS.BAG IV ONE (20:48)
[2023-06-15] MEDS ORDERED: KETOROLAC TROMETHAMINE 30 MG/1 ML VIAL IVPUSH ONE (20:48)
[2023-06-15] MEDS ORDERED: METOCLOPRAMIDE HCL INJECTION 10 MG/2 ML VIAL ONE (21:01)
[2023-06-15 21:09] LABS: BASO % 0.4 % (0-2.0); EOS % 3.8 % (0-4.5); HEMATOCRIT 35.9 % (32.4-45.2); HEMOGLOBIN 11.9 GM/dL (10.7-15.3); MCH 27.7 pg (25.7-33.7); MCHC 33.2 g/dl (32.0-36.0); MEAN CELL VOLUME 83.4 fl (80-96); MONO % 11.5 % (3.8-10.2); NEUT % 51.3 % (42.8-82.8); RBC 4.31 M/mm3 (3.60-5.2); RDW 13.8 % (11.6-15.6); WHITE BLOOD COUNT 6.9 K/mm3 (4.0-10.0)
[2023-06-15 21:41] LABS: POTASSIUM 4.2 mmol/L (3.5-5.1)
[2023-06-15 21:43] LABS: CALCIUM 8.6 mg/dL (8.5-10.1)
[2023-06-15 21:44] LABS: ALBUMIN 3.8 g/dl (3.4-5.0); BLOOD UREA NITROGEN 14.3 mg/dL (7-18)
[2023-06-15 21:47] LABS: BILIRUBIN,TOTAL 0.4 mg/dL (0.2-1); CREATININE 0.6 mg/dL (0.55-1.3); TOT PROT 7.4 g/dl (6.4-8.2)
[2023-06-15 23:47] VITALS: BP 126/88; PULSE 61; RESP 16; TEMP 98.1
== END 2023-06-16 01:48 | disposition left against medical advice (07) ==
LOC: JER 19:14
PROC: 3E033GC Introduction of Other Therapeutic Substance into Peripheral Vein, Percutaneous Approach (ICD-10-PCS; principal; 2023-06-15)
DX: O20.8 Other hemorrhage in early pregnancy (principal); O26.899 Other specified pregnancy related conditions, unspecified trimester; R10.30 Lower abdominal pain, unspecified; O99.350 Diseases of the nervous system complicating pregnancy, unspecified trimester; G43.909 Migraine, unspecified, not intractable, without status migrainosus; Z3A.00 Weeks of gestation of pregnancy not specified
CPT/HCPCS: 36415; 76817-TC; 80053; 84702; 84703; 85025; 99284-25

== ENCOUNTER 2023-09-20 11:17 | Emergency (ER) | payer OTHER ==
[2023-09-20 11:39] VITALS: BP 129/95; PULSE 90; RESP 18; TEMP 97.8; BMI 22.4
[2023-09-20] MEDS ORDERED: ACETAMINOPHEN INJECTION 100 ML IVPB ONE (13:04)
[2023-09-20] MEDS ORDERED: ONDANSETRON 4 MG/2 ML VIAL ONE (13:04)
[2023-09-20 13:13] LABS: EPI CELLS 27 /uL (0-25.1); HYALINE CASTS 0 /uL (0-3.1); URINE APPEARANCE CLEAR; URINE BACTERIA 134 /uL (0-1359); URINE BILIRUBIN NEGATIVE (NEGATIVE); URINE COLOR YELLOW; URINE GLUCOSE (UA) NEGATIVE (NEGATIVE); URINE KETONE NEGATIVE (NEGATIVE); URINE LEUK ESTERASE TRACE (NEGATIVE); URINE NITRITE NEGATIVE (NEGATIVE); URINE PROTEIN NEGATIVE (NEGATIVE); URINE RBC 10 /uL (0-23.9); URINE UROBILINOGEN 0.2 mg/dL (0.2-1.0); URINE WBC 20 /uL (0-25.8)
[2023-09-20] MEDS: ACETAMINOPHEN 1000 MG/100 ML BAG IVPB ONE (13:20)
[2023-09-20] MEDS: LACTATED RINGERS SOLUTION 1000 ML INFUS.BAG IV ONE (13:20)
[2023-09-20] MEDS: ONDANSETRON 4 MG/2 ML VIAL IVPUSH ONE (13:20)
[2023-09-20 13:27] LABS: BASO % 0.2 % (0-2.0); EOS % 1.4 % (0-4.5); HEMATOCRIT 35.5 % (32.4-45.2); HEMOGLOBIN 11.4 GM/dL (10.7-15.3); MCH 26.7 pg (25.7-33.7); MCHC 32.3 g/dl (32.0-36.0); MEAN CELL VOLUME 82.8 fl (80-96); MONO % 6.9 % (3.8-10.2); NEUT % 68.5 % (42.8-82.8); RBC 4.28 M/mm3 (3.60-5.2); RDW 13.8 % (11.6-15.6); WHITE BLOOD COUNT 13.1 K/mm3 (4.0-10.0)
[2023-09-20 13:39] LABS: POTASSIUM 4.2 mmol/L (3.5-5.1)
[2023-09-20 13:42] LABS: CALCIUM 9.3 mg/dL (8.5-10.1)
[2023-09-20 13:43] LABS: ALBUMIN 3.4 g/dl (3.4-5.0); BLOOD UREA NITROGEN 9.7 mg/dL (7-18); MAGNESIUM 2.3 mg/dL (1.8-2.4)
[2023-09-20 13:46] LABS: CREATININE 0.4 mg/dL (0.55-1.3)
[2023-09-20 13:48] LABS: BILIRUBIN,TOTAL 0.5 mg/dL (0.2-1); TOT PROT 7.2 g/dl (6.4-8.2)
[2023-09-20] MEDS ORDERED: METOCLOPRAMIDE HCL INJECTION 10 MG/2 ML VIAL ONE (15:06)
[2023-09-20] MEDS: METOCLOPRAMIDE HCL INJECTION 10 MG/2 ML VIAL IVPUSH ONE (15:11)
[2023-09-20] MEDS ORDERED: PROCHLORPERAZINE INJECTION 10 MG/2 ML VIAL IVPB ONE (15:54)
== END 2023-09-20 16:58 | disposition home or self-care (01) ==
LOC: JER 11:17
PROC: 3E030NZ Introduction of Analgesics, Hypnotics, Sedatives into Peripheral Vein, Open Approach (ICD-10-PCS; principal; 2023-09-20)
PROC: 3E030GC Introduction of Other Therapeutic Substance into Peripheral Vein, Open Approach (ICD-10-PCS; 2023-09-20)
PROC: 3E030GC Introduction of Other Therapeutic Substance into Peripheral Vein, Open Approach (ICD-10-PCS; 2023-09-20)
DX: O21.9 Vomiting of pregnancy, unspecified (principal); O26.891 Other specified pregnancy related conditions, first trimester; R10.813 Right lower quadrant abdominal tenderness; R10.814 Left lower quadrant abdominal tenderness; O99.891 Other specified diseases and conditions complicating pregnancy; R51.9 Headache, unspecified; R68.83 Chills (without fever); Z3A.01 Less than 8 weeks gestation of pregnancy; Z20.822 Contact with and (suspected) exposure to COVID-19
CPT/HCPCS: 0241U-QW; 36415; 76817-TC; 80053; 81003; 83735; 84100; 84702; 84703; 85025; 86850; 86900; 86901; 87070; 87077; 87086; 87205; 87491; 87591; 87661; 93005; 93010; 96374; 96375; 99285-25; J0131

== ENCOUNTER 2024-04-10 06:30 | Inpatient (IN) | payer OTHER ==
[2024-04-10] MEDS: ELECTROLYTE-148 SOLN 500 ML IV ONE (06:35)
[2024-04-10] MEDS: CITRIC ACID/SODIUM CITRATE 30 ML UNIT-DOSE CUP PO ONE (07:00)
[2024-04-10 07:28] LABS: BASO % 0.3 % (0-2.0); EOS % 1.2 % (0-4.5); HEMATOCRIT 34.5 % (32.4-45.2); HEMOGLOBIN 11.1 GM/dL (10.7-15.3); LYMPH % 17.3 % (8-40); MCH 25.9 pg (25.7-33.7); MCHC 32.2 g/dl (32.0-36.0); MEAN CELL VOLUME 80.3 fl (80-96); MEAN PLT VOLUME 10.5 fl (7.5-11.1); MONO % 7.8 % (3.8-10.2); NEUT % 73.4 % (42.8-82.8); RDW 14.8 % (11.6-15.6); WHITE BLOOD COUNT 15.9 K/mm3 (4.0-10.0)
[2024-04-10] MEDS: ELECTROLYTE-148 SOLN 1,000 ML IV SCH (07:30)
[2024-04-10 07:31] LABS: INR 0.96 (0.83-1.09)
[2024-04-10 07:53] VITALS: BMI 29.5
[2024-04-10] MEDS ORDERED: morphine SULFATE/PF 1 MG/2 ML (2cc Syringe - QUVA) ONE (07:59)
[2024-04-10] MEDS ORDERED: FENTANYL CITRATE/PF 50 MCG/ML VIAL ONE (07:59)
[2024-04-10] MEDS ORDERED: LIGASURE IMPACT TP ONE (07:59)
[2024-04-10] MEDS ORDERED: DEXAMETHASONE SOD PHOSPHATE 4 MG/1 ML VIAL ONE (08:03)
[2024-04-10] MEDS ORDERED: ceFAZolin SODIUM 1 GM VIAL ONE (08:03)
[2024-04-10] MEDS ORDERED: ONDANSETRON 4 MG/2 ML VIAL ONE (08:03)
[2024-04-10] MEDS ORDERED: METOCLOPRAMIDE HCL INJECTION 10 MG/2 ML VIAL ONE (08:03)
[2024-04-10] MEDS ORDERED: PHENYLEPHRINE HCL 10 MG/1 ML SINGLE DOSE VIAL ONE (08:04)
[2024-04-10] MEDS ORDERED: OXYTOCIN 10 UNITS/ML VIAL ONE (08:44)
[2024-04-10] MEDS ORDERED: OXYTOCIN 20 UNITS in 0.9% NS 20 UNIT/1,000 ML INFUS.BAG IV ONE (09:57)
[2024-04-10] MEDS: OXYTOCIN 20 UNITS in 0.9% NS 20 UNIT/1,000 ML INFUS.BAG IV SCH (10:00)
[2024-04-10 10:07] LABS: CORD HCO3 25.5 mmHg (20-29); CORD pH 7.334 (7.14-7.44)
[2024-04-10 10:11] LABS: CORD BASE EXCESS -2.1 mmol/L (0-2); CORD HCO3 25.1 mmHg (20-29); CORD PCO2 52.9 mmHg (30-78); CORD pH 7.294 (7.14-7.44)
[2024-04-10] MEDS ORDERED: METHYLERGONOVINE MALEATE 0.2 MG/1 ML AMP IM PRN (10:18)
[2024-04-10 14:01] LABS: HIV INTERPRETATION NEGATIVE (NEGATIVE)
[2024-04-10] MEDS: SIMETHICONE 80 MG TAB.CHEW (FP) PO PRN (20:08)
[2024-04-10] MEDS: ACETAMINOPHEN 1000 MG/100 ML BAG IVPB PRN (20:09)
[2024-04-11] MEDS: IBUPROFEN 800 MG/8 ML IJ IVPB PRN (00:53)
[2024-04-11] MEDS: IBUPROFEN 600 MG TABLET (FP) PO PRN (04:46)
[2024-04-11] MEDS: ACETAMINOPHEN 325 MG TABLET (FP) PO PRN (07:28)
[2024-04-11 07:52] LABS: BASO % 0.2 % (0-2.0); EOS % 0.8 % (0-4.5); HEMATOCRIT 29.9 % (32.4-45.2); HEMOGLOBIN 9.4 GM/dL (10.7-15.3); MCH 25.8 pg (25.7-33.7); MCHC 31.5 g/dl (32.0-36.0); MEAN CELL VOLUME 81.9 fl (80-96); MEAN PLT VOLUME 9.5 fl (7.5-11.1); PLATELET COUNT 53 10^3/uL (134-434); RBC 3.65 M/mm3 (3.60-5.2); RDW 14.2 % (11.6-15.6); WHITE BLOOD COUNT 16.9 K/mm3 (4.0-10.0)
[2024-04-11] MEDS: diphenhydrAMINE HCL 25 MG CAPSULE (FP) PO PRN (11:43)
[2024-04-11] MEDS: DIPHTH,PERTUSS(ACELL),TET 0.5 ML DISP.SYRIN IM ONE (11:44)
[2024-04-11] MEDS: FLU VACCINE (FLULAVAL) PF 45 MCG/0.5 ML SYRINGE 2024-2025 IM ONE (11:47)
[2024-04-11] MEDS: INSULIN ASPART SLIDING SCALE (NOVOLOG) 1 VIAL SQ PRN (14:56)
[2024-04-11 19:21] LABS: POTASSIUM 3.9 mmol/L (3.5-5.1)
[2024-04-11 19:24] LABS: BLOOD UREA NITROGEN 7.6 mg/dL (7-18); CALCIUM 8.1 mg/dL (8.5-10.1)
[2024-04-11 19:28] LABS: CREATININE 0.5 mg/dL (0.55-1.3)
[2024-04-11] MEDS: INSULIN ASPART SLIDING SCALE (NOVOLOG) 1 VIAL SQ SCH (22:00)
[2024-04-12] MEDS: oxyCODONE HCL 5 MG TABLET PO PRN (03:12)
[2024-04-12] MEDS: BISACODYL 10 MG SUPP.RECT RC PRN (03:12)
[2024-04-12 09:05] VITALS: RESP 18
[2024-04-13] MEDS: oxyCODONE HCL 5 MG TABLET PO PRN (00:55)
[2024-04-13 07:00] LABS: BASO % 0.3 % (0-2.0); EOS % 4.3 % (0-4.5); HEMATOCRIT 29.3 % (32.4-45.2); HEMOGLOBIN 9.5 GM/dL (10.7-15.3); LYMPH % 28.8 % (8-40); MCH 26.3 pg (25.7-33.7); MCHC 32.4 g/dl (32.0-36.0); MEAN CELL VOLUME 81.3 fl (80-96); MEAN PLT VOLUME 8.2 fl (7.5-11.1); MONO % 9.6 % (3.8-10.2); RDW 14.2 % (11.6-15.6); WHITE BLOOD COUNT 10.3 K/mm3 (4.0-10.0)
[2024-04-13 09:25] VITALS: BP 119/75; PULSE 79; TEMP 98.5
== END 2024-04-13 17:27 | disposition home or self-care (01) | DRG 540 ==
LOC: JLDR 06:30 → J3W 12:30
PROVIDERS: ADMIT Obstetrics & Gynecology Obstetrics; ATTEND Obstetrics & Gynecology Obstetrics
PROC: 10D00Z1 Extraction of Products of Conception, Low, Open Approach (ICD-10-PCS; principal; 2024-04-10)
PROC: 0UB70ZZ Excision of Bilateral Fallopian Tubes, Open Approach (ICD-10-PCS; 2024-04-10)
DX: O34.211 Maternal care for low transverse scar from previous cesarean delivery (principal); N85.8 Other specified noninflammatory disorders of uterus; O24.424 Gestational diabetes mellitus in childbirth, insulin controlled; O99.12 Other diseases of the blood and blood-forming organs and certain disorders involving the immune mechanism complicating childbirth; Z37.0 Single live birth; Z30.2 Encounter for sterilization; Z3A.37 37 weeks gestation of pregnancy
CPT/HCPCS: 36415; 36600; 59409; 80048; 80053; 82803; 82962; 83036; 85025; 85032; 85610; 86780; 86850; 86870; 86880; 86900; 86901; 86902; 87389; 88302-TC; 88307-TC; 90656; 90715; G0008; J0131